=== PATIENT | female | born 2000 | race Caucasian/White ===

== ENCOUNTER 2024-06-15 13:01 | Outpatient (OUT) | payer MEDICAID, SELFPAY ==
--- NOTE | 2024-06-15 13:05 | US_ITS ---
[address] [address] Patient Name: RUPINDER LAY MRN: [id number] date: 2000 Sex: F Assigned Patient Location: [facility] Current Patient Location: Accession/Order Number: [id number] Exam Date: 06/15/2024 13:05 Report Date: 06/16/2024 04:15 At the request of: ZENON GUZMAN Procedure: US OB >= 14 weeks Fetus EXAMINATION: US OB >= 14 weeks Fetus HISTORY: MISSED MENSES COMPARISON: No relevant comparison available. FINDINGS: Heart Rate: 158 bpm Amniotic Fluid Volume: Subjectively normal Number: 1 Position: Variable BIOMETRY: BPD: 3.77 cm; 17 weeks 4 days; 72.60 % HC: 14.34 cm; 17 weeks 4 days; 71 % AC: 13.37 cm; 18 weeks 6 days; 94.90 % FL: 2.57 cm; 17 weeks 6 days; 75.10 % EFW: 228.18 g; 97 % FL/AC: 19.22 FL/BPD: 68.17 HC/AC: 1.07 GESTATIONAL AGE: Age by EDC: 17 weeks 0 days JV by EDC: 11/23/2024 Age by US: 18 weeks 0 days JV by US: 11/16/2024 US/US OB >= 14 weeks Fetus IMPRESSION: 1. Single live intrauterine with growth detailed above. 2. Anatomic evaluation not performed due to early gestational age. Electronically authenticated by: IVY KEARNEY Date: 06/16/2024 04:15
== END 2024-06-15 13:02 | disposition home or self-care (01) ==
LOC: NOMS 13:01
PROVIDERS: Visit Provider Obstetrics & Gynecology
DX: Z34.92 Encounter for supervision of normal pregnancy, unspecified, second trimester (principal); Z3A.17 17 weeks gestation of pregnancy; N92.6 Irregular menstruation, unspecified
CPT/HCPCS: 76815

== ENCOUNTER 2024-06-19 12:22 | Outpatient (OUT) | payer MEDICAID, SELFPAY ==
[2024-06-19 13:03] LABS: Basophils Percent Auto 0.1 % (0.2-2.0); Eosinophils Absolute Auto 0.1 10^3/uL (0.0-0.7); Hematocrit 36.7 % (36.0-48.0); Hemoglobin 12.4 g/dL (12.0-16.0); Immature Granulocytes Abs Auto 0.03 10^3/uL (0.00-0.03); Immature Granulocytes Pct Auto 0.4 % (0.0-0.5); Lymphocytes Absolute Auto 0.9 10^3/uL (1.2-3.8); Lymphocytes Percent Auto 10.9 % (20.5-60.0); Mean Corpuscular HGB Conc 33.8 g/dL (29.9-35.2); Mean Corpuscular Hemoglobin 30.7 pg (26.7-34.0); Mean Corpuscular Volume 90.8 fL (81.0-99.0); Mean Platelet Volume 11.5 fL (9.5-13.5); Monocytes Absolute Auto 0.5 10^3/uL (0.3-0.8); Neutrophils Absolute Auto 6.8 10^3/uL (1.4-6.5); Neutrophils Percent Auto 81.6 % (43.0-75.0); Platelet Count 136 10^3/uL (150-450); Red Blood Count 4.04 10^6/uL (4.20-5.40); Red Cell Distribution Width 12.4 % (11.0-15.0); White Blood Count 8.3 10^3/uL (4.0-11.0)
[2024-06-19 13:17] LABS: Amphetamine Screen Urine NEGATIVE (NEGATIVE); Barbiturates Screen Urine NEGATIVE (NEGATIVE); Benzodiazepines Screen Urine NEGATIVE (NEGATIVE); Buprenorphine Screen Urine NEGATIVE (NEGATIVE); Cannabinoid Screen Urine NEGATIVE (NEGATIVE); Cocaine Screen Urine NEGATIVE (NEGATIVE); Methadone Screen Urine NEGATIVE (NEGATIVE); Methamphetamines Screen Urine NEGATIVE (NEGATIVE); Opiate Screen Urine NEGATIVE (NEGATIVE); Oxycodone Screen Urine NEGATIVE (NEGATIVE); Phencyclidine Screen Urine NEGATIVE (NEGATIVE); Tricyclic Antidepressant Urine NEGATIVE (NEGATIVE)
[2024-06-19 13:32] LABS: Estimated Average Glucose 91 mg/dL; Glycohemoglobin A1C 4.8 % (4.5-6.2)
[2024-06-20 06:10] LABS: HBsAg Screen Negative (Negative); HCV Ab Non Reactive (Non Reactive); HIV Ab/p24 Ag Screen Non Reactive (Non Reactive)
[2024-06-20 12:09] LABS: Rapid Plasma Reagin, Quant Non Reactive titer (NonRea<1:1)
== END 2024-06-19 12:23 | disposition home or self-care (01) ==
LOC: LAB 12:26
PROVIDERS: Visit Provider Obstetrics & Gynecology
DX: Z34.01 Encounter for supervision of normal first pregnancy, first trimester (principal); N92.6 Irregular menstruation, unspecified
CPT/HCPCS: 36415; 80307; 83036; 85025; 86592; 86762; 86803; 86850; 86900; 86901; 87086; 87340; 87389

== ENCOUNTER 2024-07-04 13:51 | Outpatient (OUT) | payer MEDICAID, SELFPAY ==
--- NOTE | 2024-07-04 13:54 | US_ITS ---
[address] [address] Patient Name: RUPINDER LAY MRN: [id number] date: 2000 Sex: F Assigned Patient Location: [facility] Current Patient Location: Accession/Order Number: [id number] Exam Date: 07/04/2024 13:54 Report Date: 07/05/2024 05:17 At the request of: ZENON GUZMAN Procedure: US OB cervical length EXAMINATION: US OB anatomy, US OB cervical length HISTORY: ANATOMY COMPARISON: Ultrasound OB greater than 14 weeks 06/15/2024 TECHNIQUE: Transabdominal sonographic examination was performed for obstetrical and evaluation. FINDINGS: Number: 1 Heart Rate: 157 bpm H.B. /min Amniotic Fluid Volume: Subjectively normal Placental Location: ANTERIOR with lower margin 5.8 cm from os. Cervix Length: 4.80 cm ; closed. ANATOMY: Normal Structures -cerebellum, choroid plexus, cisterna magna, lateral cerebral ventricles, orbits, midline falx, hard palate, four-chamber heart, RVOT, LVOT, stomach, kidneys, bladder, umbilical cord insertion into abdomen, three-vessel cord, cervical spine, thoracic spine, lumbar spine, sacral spine, right upper extremity, left upper extremity, right lower extremity, left lower extremity. SUBOPTIMALLY SEEN: None ABNORMALITIES: None BIOMETRY: BPD: 4.34 cm; 19 weeks 1 day; 3.80 % HC: 17.30 cm; 19 weeks 6 days; 10.20 % AC: 14.98 cm; 20 weeks 2 days; 27.80 % FL: 3.38 cm; 20 weeks 4 days; 37.40 % EFW:307.82 g; 24.30 % FL/AC: 22.56 FL/BPD: 77.88 HC/AC: 1.15 GESTATIONAL AGE: Age by EDC: 20 weeks 5 days Age by current US: 19 weeks 5 days JV by current US: 2024-11-23 JV by EDC: 2024-11-16 US/US OB cervical length IMPRESSION: 1. Single live intrauterine with growth detailed above. Electronically authenticated by: IVY KEARNEY Date: 07/05/2024 05:17
--- NOTE | 2024-07-04 13:54 | US_ITS ---
[address] [address] Patient Name: RUPINDER LAY MRN: [id number] date: 2000 Sex: F Assigned Patient Location: [facility] Current Patient Location: Accession/Order Number: [id number] Exam Date: 07/04/2024 13:54 Report Date: 07/05/2024 05:17 At the request of: ZENON GUZMAN Procedure: US OB anatomy EXAMINATION: US OB anatomy, US OB cervical length HISTORY: ANATOMY COMPARISON: Ultrasound OB greater than 14 weeks 06/15/2024 TECHNIQUE: Transabdominal sonographic examination was performed for obstetrical and evaluation. FINDINGS: Number: 1 Heart Rate: 157 bpm H.B. /min Amniotic Fluid Volume: Subjectively normal Placental Location: ANTERIOR with lower margin 5.8 cm from os. Cervix Length: 4.80 cm ; closed. ANATOMY: Normal Structures -cerebellum, choroid plexus, cisterna magna, lateral cerebral ventricles, orbits, midline falx, hard palate, four-chamber heart, RVOT, LVOT, stomach, kidneys, bladder, umbilical cord insertion into abdomen, three-vessel cord, cervical spine, thoracic spine, lumbar spine, sacral spine, right upper extremity, left upper extremity, right lower extremity, left lower extremity. SUBOPTIMALLY SEEN: None ABNORMALITIES: None BIOMETRY: BPD: 4.34 cm; 19 weeks 1 day; 3.80 % HC: 17.30 cm; 19 weeks 6 days; 10.20 % AC: 14.98 cm; 20 weeks 2 days; 27.80 % FL: 3.38 cm; 20 weeks 4 days; 37.40 % EFW:307.82 g; 24.30 % FL/AC: 22.56 FL/BPD: 77.88 HC/AC: 1.15 GESTATIONAL AGE: Age by EDC: 20 weeks 5 days Age by current US: 19 weeks 5 days JV by current US: 2024-11-23 JV by EDC: 2024-11-16 US/US OB anatomy IMPRESSION: 1. Single live intrauterine with growth detailed above. Electronically authenticated by: IVY KEARNEY Date: 07/05/2024 05:17
--- OUTSIDE RECORDS SUMMARY | 2024-07-04 14:02 | XMS_ITS | CCD ---
Author Organization [facility] Care Team Providers Care Tape Sewing Machine Operator Name Role Phone SHIRA ARMSTRONG Admitting Unavailable SHIRA ARMSTRONG Attending Unavailable JODEE RUBALCAVA Consulting Unavailable MISC, DOCTOR Primary Care Unavailable IEVT STAUFFER Consulting Unavailable Swapna Omalley NP Unavailable ZENON GUZMAN Attending Unavailable Allergies Allergy Classification Reported Allergen(s) Allergy Type Date of Onset Reaction(s) Facility (1 source) Penicillins Drug allergy (disorder) 7 [facility] Repository (5 sources) Penicillins Propensity to adverse reactions 4 [facility] Problems Problem Classification Problem Date Documented Da te Episodic/Chronic External cause codes: Struck by; against (1 source) Striking against or struck by other objects, initial encounter; Translations: [STRIKING AGNST/STRUCK OTH OBJ INIT] Onset: 04-09-2020 Menstrual disorders (1 source) Missed period; Translations: [Irregular menstruation, unspecified] 06-15-2024 Chronic Other connective tissue disease (3 sources) Pain in left hand; Translations: [PAIN IN LEFT HAND] Onset: 04-06-2020 Episodic Other and delivery including normal (5 sources) ; Translations: [Encounter for supervision of normal , unspecified, unspecified trimester] 06-15-2024 Episodic Other screening for suspected conditions (not mental disorders or infectious disease) (2 sources) Patient encounter status; Translations: [Encounter for other specified screening] 06-20-2024 Episodic Residual codes; unclassified (1 source) Gestation period, 18 weeks; Translations: [18 weeks gestation of ] 06-15-2024 Episodic Substance-related disorders (1 source) Nicotine dependence, cigarettes, uncomplicated; Translations: [NICOTINE DEPEND CIGARETTES UNCOMP] Onset: 04-09-2020 Chronic Superficial injury; contusion (1 source) Contusion of left hand, initial encounter; Translations: [CONTUSION LEFT HAND INITIAL ENC] Onset: 04-09-2020 Episodic Results Test Name Value Interpretation Reference Range Facil ity Urinalysis macro (dipstick) panel (U)on 06-20-2024 Bilirubin, UA Negative Negative - 4(70) +++ mg/dL [facility] Blood, UA Negative Negative - 50 Robbi/mcL [facility] Clarity, UA Clear [facility] re Color, UA Yellow [facility] Glucose, UA Negative Negative - 1999(110) ++++ mg/dL [facility] Interpretation and review of laboratory results Abnormal [facility] Ketones, UA Negative Negative - 160(16) ++++ mg/dL [facility] Leukocytes, UA Negative Negative - 500+++ Jose/mcL [facility] Nitrite, UA Negative Negative - Positive [facility] pH, UA 5.5 5 - 9 [facility] e Protein, UA Negative Negative - 1999(20) ++++ mg/dL [facility] Spec Grav, UA 1.03 1 - 1.03 [facility] Urobilinogen, UA 1.0 0.2 - 12 mg/dL [facility] ALL CBC WITH AUTO DIFFon BASOPHILS ABSOLUTE AUTO 0 [facility] Basophils/100 WBC (Bld) 0.1 % Low 0.2 - 2.0 % [facility] Eosinophils/100 WBC (Bld) 1 % 0.9 - 7.0 % [facility] Erythrocyte distribution width (RBC) [Ratio] 12.4 % 11.0 - 15.0 % [facility] Hematocrit (Bld) [Volume fraction] 36.7 % 36.0 - 48.0 % [facility] Hemoglobin (Bld) [Mass/Vol] 12.4 g/dL 12.0 - 16.0 g/dL [facility] IMMATURE GRANULOCYTES ABS AUTO 0.03 [facility] Immature granulocytes/100 WBC (Bld) 0.4 % 0.0 - 0.5 % [facility] Interpretation and review of laboratory results Abnormal [facility] LYMPHOCYTES ABSOLUTE AUTO 0.9 Low [facility] Lymphocytes/100 WBC (Bld) 10.9 % Low 20.5 - 60.0 % [facility] MCH (RBC) [Entitic mass] 30.7 pg 26.7 - 34.0 pg [facility] MCHC (RBC) [Mass/Vol] 33.8 g/dL 29.9 - 35.2 g/dL [facility] MCV (RBC) [Entitic vol] 90.8 fL 81.0 - 99.0 fL [facility] MONOCYTES ABSOLUTE AUTO 0.5 [facility] Monocytes/100 WBC (Bld) 6 % 1.7 - 12.0 % [facility] NEUTROPHILS ABSOLUTE AUTO 6.8 High [facility] Neutrophils/100 WBC (Bld) 81.6 % High 43.0 - 75.0 % [facility] Platelet mean volume (Bld) [Entitic vol] 11.5 fL 9.5 - 13.5 fL [facility] EO # 0.1 [facility] PLT 136 Low [facility] e TB RBC 4.04 Low [facility] e TB WBC 8.3 [facility] e [facility] e HCG ( test) Ql (U)o n 06-15-2024 Interpretation and review of laboratory results Abnormal [facility] Preg Test, Ur Positive [facility] Urinalysis macro (dipstick) panel (U)on 06-15-2024 Bilirubin, UA Negative Negative - 4(70) +++ mg/dL [facility] Blood, UA Negative Negative - 50 Robbi/mcL [facility] Clarity, UA Clear [facility] re Color, UA Yellow [facility] e Glucose, UA Negative Negative - 1999(110) ++++ mg/dL [facility] Interpretation and review of laboratory results Abnormal [facility] Ketones, UA Positive Negative - 160(16) ++++ mg/dL [facility] Comment on above: trace Leukocytes, UA Negative Negative - 500+++ Jose/mcL [facility] Nitrite, UA Negative Negative - Positive [facility] pH, UA 5.5 5 - 9 [facility] e Protein, UA Negative Negative - 1999(20) ++++ mg/dL [facility] Spec Grav, UA 1.030 1 - 1.03 [facility] Urobilinogen, UA 0.2 0.2 - 12 mg/dL [facility] LT MIN 3Von 04-06-20 20 XR HAND LT MIN 3V PROCEDURE: XR HAND LT MIN 3V, 04/06/2020 8:50 PM EDT CLINICAL INDICATIONS: Traumatic contusion, left second metacarpal phalangeal joint pain. COMPARISON: None TECHNIQUE: Left hand, 3 views FINDINGS: The bones are normal in density. Acute fracture or bone destruction are not evident. The joint spaces are preserved. Mild metacarpal level soft tissue swelling is seen without opaque foreign body or gas collection. IMPRESSION: 1. Acute traumatic osseous pathology 2. Metacarpal level soft tissue swelling without opaque foreign body or gas collection Electronically authenticated by: IVET STAUFFER Date: 2020-04-06 21:56 Normal [facility] Vital Signs Date Time Vital Sign Value Performing Clinician Ailyn lity 06-20-2024 11:01-0400 Body weight 76.2 kg Zenon Antony DO Work Phone: [facility] 06-20-2024 11:01-0400 Diastolic blood pressure 70 mm[Hg] Zenon Antony DO Work Phone: [facility] 06-20-2024 11:01-0400 Systolic blood pressure 108 mm[Hg] Zenon Antony DO Work Phone: [facility] 06-15-2024 13:41-0400 Body weight 74.84 kg [facility] 06-15-2024 13:41-0400 Diastolic blood pressure 64 mm[Hg] [facility] 06-15-2024 13:41-0400 Systolic blood pressure 102 mm[Hg] [facility] Nurse [facility] Encounters Encounter Date Encounter Type Care Provider Facility Start: 06-20-2024 End: 06-20-2024 Bamboo flowsheet Zenon Antony DO Work Phone: [facility] Start: 06-20-2024 End: 06-20-2024 Bamboo flowsheet Zenon Antony DO Work Phone: [facility] Start: 06-20-2024 End: 06-20-2024 Office outpatient visit 15 minutes Zenon Antony DO Work Phone: [facility] Comment on above: Second trimester pre gnancy; Screening, , for anatomic survey Start: 06-20-2024 End: 06-20-2024 ambulatory ZENON ANTONY Not Available Start: 06-19-2024 End: 06-19-2024 [facility] Result Encounter Zenon Antony DO Work Phone: [facility] Unsolicited Start: 06-19-2024 End: 06-19-2024 [facility] Result Encounter Zenon Antony DO Work Phone: [facility] Unsolicited Start: 06-15-2024 End: 06-15-2024 Office outpatient visit 5 minutes [facility] Antony Nurse [facility] Comment on above: GA: 18w0d Start: 06-15-2024 End: 06-15-2024 ambulatory ZENON ANTONY Not Available Start: 04-06-2020 End: 04-06-2020 Patient encounter procedure SHIRA ARMSTRONG Facility: Procedures Date Procedure Procedure Detail Performing Clinician Start: 06-20-2024 Urnls dip stick/tabl et rgnt non-auto w/o micrscp Zenon Antony DO Work Phone: Start: 06-19-2024 ALL CBC WITH AUTO DIFF Zenon Antony DO Work Phone: Start: 06-15-2024 End: 06-15-2024 Urnls dip stick/tablet rgnt non-auto w/o micrscp Zenon Antony DO Work Phone: Plan of Treatment Date Care Activity Detail Author Start: 07-18-2024 End: 07-18-2024 Patient encounter procedure 07/18/2024 10:10 AM EST Routine [facility] [address] [place] [address] Antony, Zenon, DO [address] [place] [address] [facility] Start: 07-04-2024 End: 07-04-2024 Professional / ancillary services management 07/04/2024 2:00 PM EDT Ancillary Procedure [facility] [address] [place] [address] [facility] Start: 06-20-2024 End: 06-20-2025 US for US OB ANATOMY SINGLE W US OB CERVICAL LENGTH Imaging Routine Screening, , for anatomic survey Expected: 06/20/2024 (Approximate), Expires: 06/20/2025 [facility] Work Phone: Comment on above: Expected: 06/20/2024 (Approximate), Expires: 06/20/2025 Start: 06-20-2024 End: 06-20-2024 Patient encounter procedure [facility] Comment on above: Arrived Start: 06-15-2024 End: 06-15-2025 ABO/Rh ABO/Rh Lab Routine Missed menses , unspecified gestational age Expected: 06/15/2024 (Approximate), Expires: 06/15/2025 [facility] Comment on above: Expected: 06/15/2024 (Approximate), Expires: 06/15/2025 Start: 06-15-2024 End: 06-15-2025 Alpha fetoprotein, maternal Alpha fetoprotein, maternal Lab Routine Second trimester Expected: 06/15/2024 (Approximate), Expires: 06/15/2025 [facility] Comment on above: Expected: 06/15/2024 (Approximate), Expires: 06/15/2025 Start: 06-15-2024 End: 06-15-2025 Blood type and Indirect antibody screen panel - Blood Type and screen Lab Routine Missed menses , unspecified gestational age Expected: 06/15/2024 (Approximate), Expires: 06/15/2025 [facility] Work Phone: Comment on above: Expected: 06/15/2024 (Approximate), Expires: 06/15/2025 Start: 06-15-2024 End: 06-15-2025 Drugs of abuse panel - Urine by Screen method Rapid drug screen, urine Lab Routine , unspecified gestational age Encounter for supervision of normal first in first trimester Expected: 06/15/2024 (Approximate), Expires: 06/15/2025 [facility] Comment on above: Expected: 06/15/2024 (Approximate), Expires: 06/15/2025 Start: 06-15-2024 End: 06-15-2025 US for US OB > 14 WEEKS Imaging Routine Missed menses Expected: 06/15/2024 (Approximate), Expires: 06/15/2025 [facility] Comment on above: Expected: 06/15/2024 (Approximate), Expires: 06/15/2025 Start: 05-07-2024 Influenza vaccination Influenza Vacc ine (#1) [facility] Bacteria identified in Urine by Culture Urine culture Microbiology Routine Missed menses Ordered: 06/15/2024 [facility] Comment on above: Ordered: 06/15/2024 CBC W Auto Different ial panel - Blood CBC and differential Lab Routine Missed menses , unspecified gestational age Ordered: 06/15/2024 [facility] Comment on above: Ordered: 06/15/2024 Hemoglobin A1c/Hemoglobin.total in Blood Hemoglobin A1c Lab Routine Missed menses , unspecified gestational age Ordered: 06/15/2024 [facility] Comment on above: Ordered: 06/15/2024 Hepatitis B virus surface Ag [Presence] in Serum or Plasma by Immunoassay Hepatitis B surface antigen Lab Routine Missed menses , unspecified gestational age Ordered: 06/15/2024 [facility] Comment on above: Ordered: 06/15/2024 Hepatitis C virus Ab [Presence] in Serum or Plasma by Immunoassay Hepatitis C antibody Lab Routine Missed menses , unspecified gestational age Ordered: 06/15/2024 [facility] Comment on above: Ordered: 06/15/2024 HIV-1/HIV-2 antigen/antibody combination immunoassay HIV-1 and HIV-2 antibodies Lab Routine Missed menses , unspecified gestational age Ordered: 06/15/2024 [facility] Comment on above: Ordered: 06/15/2024 Reagin Ab [Presence] in Serum by RPR RPR Lab Routine Missed menses , unspecified gestational age Ordered: 06/15/2024 [facility] Comment on above: Ordered: 06/15/2024 Rubella antibody, IgG Rubella an tibody, IgG Lab Routine Missed menses , unspecified gestational age Ordered: 06/15/2024 [facility] Comment on above: Ordered: 06/15/2024 Payers Date Payer Category Payer Medicaid [id number] 2022 Medicaid [id number] 1999 Unknown [id number] 1999 Unknown [id number] 1999 Unknown [id number] 1959 Unknown [id number] Social History Date Type Detail Facility Tobacco smoking stat [facility] Tobacco smoking consumption unknown [facility] Start: 02-24-2024 [facility] Start: 1999 Sex assigned at Female [facility] Start: 06-08-2024 Gender identity Identifies as female gender (finding) [facility] Sexual orientation Not on file [facility] History of Present illness Narrative 06-20-2024 Colleen Choi LPN - 06/20/2024 10:30 AM EDT Note Date & Type Note Facility 06-20-2024 History of Presen t illness Narrative Reason for Appointment: Patient ID: Sia Simons is a 24 y.o. female who presents for Routine Visit Patient presents today for Return OB appointment. MEDICATIONS No current outpatient medications ALLERGIES Allergies Allergen Reactions Penicillins PROBLEMS Active Ambulatory Problems Diagnosis Date Noted No Active Ambulatory Problems Resolved Ambulatory Problems Diagnosis Date Noted No Resolved Ambulatory Problems No Additional Past Medical History HISTORY PAST MEDICAL HISTORY SOCIAL HISTORY History reviewed. No pertinent past medical history. Social History Tobacco Use Smoking status: Not on file Smokeless tobacco: Not on file Substance Use Topics Alcohol use: Not on file Drug use: Not on file FAMILY HISTORY No family history on file. SURGICAL HISTORY History reviewed. No pertinent surgical history. REVIEW OF SYSTEMS Review of Systems: Review of Systems Constitutional: Negative. HENT: Negative. Eyes: Negative. Respiratory: Negative. Cardiovascular: Negative. Gastrointestinal: Negative. Genitourinary: Negative. Musculoskeletal: Negative. Skin: Negative. Neurological: Negative. All other systems reviewed and are negative. Hematological: Negative. Endocrine: Negative. Allergic/Immunologic: Negative. OBJECTIVE Objective: Physical Exam Constitutional: Appearance: Normal appearance. She is well-developed and normal weight. HENT: Head: Normocephalic. Cardiovascular: Rate and Rhythm: Normal rate and regular rhythm. Pulses: Normal pulses. Pulmonary: Effort: Pulmonary effort is normal. Breath sounds: Normal breath sounds. Abdominal: General: Bowel sounds are normal. There is no distension. Palpations: Abdomen is soft. Tenderness: There is no abdominal tenderness. There is no guarding or rebound. Musculoskeletal: General: No swelling. Normal range of motion. Right lower leg: No edema. Left lower leg: No edema. Neurological: General: No focal deficit present. Mental Status: She is alert and oriented to person, place, and time. Skin: General: Skin is warm and dry. Psychiatric: Mood and Affect: Mood normal. Behavior: Behavior normal. Thought Content: Thought content normal. Judgment: Judgment normal. Vitals and nursing note reviewed. Exam conducted with a stitchdowns toe former present. Vitals: There is no height or weight on file to calculate BMI. BP: 108/70 Patient's last menstrual period was 02/17/2024. ASSESSMENT & PLAN ICD-10-CM 1. Second trimester Z34.92 Urine dip 2. Screening, , for anatomic survey Z36.89 US OB ANATOMY SINGLE W US OB CERVICAL LENGTH Patient presents today for a routine obstetrics appointment. Patient is currently 18w5d with a Estimated Date of Delivery: 11/16/24. Pt has complaints of nausea- declines medication at this time. Pt to have pap/cultures next visit. PT to return in 4 weeks for scheduled OB appt. Documented by Colleen Choi LPN on behalf of: Jane Urbina PA-C documented in this encounter [facility] History of Present illness Narrative 06-15-2024 Nahed Louie - 06/15/2024 1:30 PM EDT Note Date & Type Note Facility 06-15-2024 History of Presen t illness Narrative Reason for Appointment: Patient ID: Sia Simons is a 24 y.o. female who presents for Initial Visit Patient presents today for a Nurse OB Intake appointment. Patient is 18w0d with a Estimated Date of Delivery: 11/16/24 OB History Para Term AB Living 1 SAB IAB Ectopic Multiple Live Births # Outcome Date GA Lbr Junaid/2nd Weight Sex Type Anes PTL Lv 1 Current Current Medications: currently has no medications in their medication list. Medical History: Active Ambulatory Problems Diagnosis Date Noted No Active Ambulatory Problems Resolved Ambulatory Problems Diagnosis Date Noted No Resolved Ambulatory Problems No Additional Past Medical History No family history on file. Social History Tobacco Use Smoking status: Not on file Smokeless tobacco: Not on file Substance Use Topics Alcohol use: Not on file Drug use: Not on file No past surgical history on file. Allergies Allergen Reactions Penicillins Vitals: There is no height or weight on file to calculate BMI. BP: 102/64 Patient's last menstrual period was 02/17/2024. Assessment/Plan Diagnoses and all orders for this visit: Missed menses - Type and screen; Future - ABO/Rh; Future - CBC and differential - Hemoglobin A1c - RPR - Rubella antibody, IgG - Hepatitis B surface antigen - Hepatitis C antibody - HIV-1 and HIV-2 antibodies - Urine culture - POCT , urine manually resulted - POCT urinalysis dipstick manually resulted - US OB > 14 WEEKS; Future , unspecified gestational age - Type and screen; Future - ABO/Rh; Future - CBC and differential - Hemoglobin A1c - RPR - Rubella antibody, IgG - Hepatitis B surface antigen - Hepatitis C antibody - HIV-1 and HIV-2 antibodies - Rapid drug screen, urine; Future Encounter for supervision of normal first in first trimester - Rapid drug screen, urine; Future 18 weeks gestation of Second trimester - Alpha fetoprotein, maternal; Future Nurse Note: OB Intake: Patient presents today for first OB visit. Patients history has been reviewed in great detail including any potential risks. Patient signed consent forms and patient desires testing in both trimesters. Patient currently has no complaints and has been advised to drink 6-8 glasses of water a day, eat no raw or undercooked meat, and stay away from [facility]. Patient has also been advised to not change litter boxes and eat 6 small meals a day. Patient has been consulted regarding the do's and don'ts of . Patient was given labs and all questions and concerns were answered. Follow Up: Patient is to return in 4 weeks for routine OB appointment. Follow Up: Patient is to have labs drawn at directed and return to office for initial OB appointment with provider. Patient may call office as needed with any concerns or questions. Nurse Visit Completed by: Nahed Louie documented in this encounter [facility] Evaluation note Note Date & Type Note Facility Evaluation note Diagnosis Missed menses , unspecified gestational age Encounter for supervision of normal first in first trimester 18 weeks gestation of Second trimester state, incidental documented in this encounter [facility] Evaluation note Note Date & Type Note Facility Evaluation note Diagnosis Second trimester state, incidental Screening, , for anatomic survey Encounter for anatomic survey documented in this encounter [facility] Summary Purpose Family History No Family History Records FoundNo Family History Records Found Advance Directives No Advanced Directives Records FoundNo Advanced Directives Records Found Additional Source Comments INFORMATION SOURCE (unrecogn ized section and content) DATE CREATED AUTHOR 04/09/2020 [facility] DATE CREATED AUTHOR AUTHOR'S ORGANIZ ATION 06/22/2024 [facility] EPIC Reason for Visit (unrecogniz ed section and content) Reason Comments Initial Visit Reason Comments Routine Visit Care Teams (unrecognized sec tion and content) Tape Sewing Machine Operator Relationship Specialty Start Date End Date Swapna Omalley NP [address] [place] [address] PCP - BERTHA Perez [facility] 12/06/23 Tape Sewing Machine Operator Relationship Specialty Start Date End Date Swapna Omalley NP [address] [place] [address] PCP - [facility] 12/06/23 Tape Sewing Machine Operator Relationship Specialty Start Date End Date Swapna Omalley NP [address] [place] [address] [facility] 12/06/23 FOR RECORDS PERTAINING TO PATIENTS WHO ARE OR HAVE BEEN ENROLLED IN A CHEMICAL DEPENDENCY/SUBSTANCEABUSE PROGRAM, SOME INFORMATION MAY BE OMITTED. This clinical summary was aggregated from multiple sources. Caution should be exercised in using it in the provision of clinical care. This summary normalizes information from multiple sources, and as a consequence, information in this document may materially change the coding, format and clinical context of patient data. In addition, data may be omitted in some cases. CLINICAL DECISIONS SHOULD BE BASED ON THE PRIMARY CLINICAL RECORDS. [employer] [facility]. provides no warranty or guarantee of the accuracy or completeness of information in this document.
== END 2024-07-04 13:52 | disposition home or self-care (01) ==
LOC: NOMS 13:52
PROVIDERS: Visit Provider Obstetrics & Gynecology
DX: Z36.89 Encounter for other specified antenatal screening (principal); Z3A.20 20 weeks gestation of pregnancy
CPT/HCPCS: 76805; 76817

== ENCOUNTER 2024-07-27 19:00 | Outpatient (REF) | payer MEDICAID, SELFPAY ==
--- OUTSIDE RECORDS SUMMARY | 2024-07-27 19:05 | XMS_ITS | CCD ---
Author Organization [facility] Care Team Providers Care Administrative Executive Name Role Phone SHIRA ARMSTRONG Admitting Unavailable SHIRA ARMSTRONG Attending Unavailable JODEE RUBALCAVA Consulting Unavailable MISC, DOCTOR Primary Care Unavailable IVET STAUFFER Consulting Unavailable Swapna Omalley NP Unavailable ZENON GUZMAN Attending Unavailable Allergies Allergy Classification Reported Allergen(s) Allergy Type Date of Onset Reaction(s) Facility (1 source) Penicillins Drug allergy (disorder) 7 [facility] Repository (5 sources) Penicillins Propensity to [...] UA Negative Negative - 4(70) +++ mg/dL [facility] Blood, UA Negative Negative - 50 Robbi/mcL [facility] Clarity, UA Clear [facility] re Color, UA Yellow [facility] Glucose, UA Negative Negative - 1999(110) ++++ mg/dL [facility] Interpretation and review of laboratory results Abnormal [facility] Ketones, UA Negative Negative - 160(16) ++++ mg/dL [facility] Leukocytes, UA Negative Negative - 500+++ Jose/mcL [facility] Nitrite, UA Negative Negative - Positive [facility] pH, UA 5.5 5 - 9 [facility] Protein, UA Negative Negative - 1999(20) ++++ mg/dL [facility] Spec Grav, UA 1.03 1 - 1.03 [facility] Urobilinogen, UA 1.0 0.2 - 12 mg/dL [facility] ALL CBC WITH AUTO DIFFon BASOPHILS ABSOLUTE AUTO 0 [facility] Basophils/100 WBC (Bld) 0.1 % Low 0.2 - 2.0 % [facility] Eosinophils/100 WBC (Bld) 1 % 0.9 - 7.0 % [facility] Erythrocyte distribution width (RBC) [Ratio] 12.4 % 11.0 - 15.0 % [facility] Hematocrit (Bld) [Volume fraction] 36.7 % 36.0 - 48.0 % [facility] [Mass/Vol] 12.4 g/dL 12.0 - 16.0 g/dL [facility] IMMATURE GRANULOCYTES ABS AUTO 0.03 [facility] Immature granulocytes/100 WBC (Bld) 0.4 % 0.0 - 0.5 % [facility] Interpretation and review of laboratory results Abnormal [facility] LYMPHOCYTES ABSOLUTE AUTO 0.9 Low [facility] Lymphocytes/100 WBC (Bld) 10.9 % Low 20.5 - 60.0 % [facility] MCH (RBC) [Entitic mass] 30.7 pg 26.7 - 34.0 pg [facility] MCHC (RBC) [Mass/Vol] 33.8 g/dL 29.9 - 35.2 g/dL [facility] MCV (RBC) [Entitic vol] 90.8 fL 81.0 - 99.0 fL [facility] MONOCYTES ABSOLUTE AUTO 0.5 [facility] Monocytes/100 WBC (Bld) 6 % 1.7 - 12.0 % [facility] NEUTROPHILS ABSOLUTE AUTO 6.8 High [facility] Neutrophils/100 WBC (Bld) 81.6 % High 43.0 - 75.0 % [facility] Platelet mean volume (Bld) [Entitic vol] 11.5 fL 9.5 - 13.5 fL [facility] # 0.1 [facility] TB PLT 136 Low [facility] TB RBC 4.04 Low [facility] TB WBC 8.3 [facility] HCG ( test) Ql (U)o n 06-15-2024 Interpretation and review of laboratory results Abnormal [facility] Preg Test, Ur Positive [facility] Urinalysis macro (dipstick) panel (U)on 06-15-2024 Bilirubin, UA Negative Negative - 4(70) +++ mg/dL [facility] Blood, UA Negative Negative - 50 Robbi/mcL [facility] Clarity, UA Clear [facility] re Color, UA Yellow [facility] Glucose, UA Negative Negative - 1999(110) ++++ mg/dL [facility] Interpretation and review of laboratory results Abnormal [facility] Ketones, UA Positive Negative - 160(16) ++++ mg/dL [facility] Comment on above: trace Leukocytes, UA Negative Negative - 500+++ Jose/mcL [facility] Nitrite, UA Negative Negative - Positive [facility] pH, UA 5.5 5 - 9 [facility] Protein, UA Negative Negative - 1999(20) ++++ mg/dL [facility] Spec Grav, UA 1.030 1 - 1.03 [facility] Urobilinogen, UA 0.2 0.2 - 12 mg/dL [facility] XR HAND LT MIN 3Von [...] by: IVET STAUFFER Date: 2020-04-06 21:56 Normal [facility] Vital Signs Date Time Vital Sign Value Performing Clinician Ailyn lity 06-20-2024 11:01-0400 Body weight 76.2 kg Zenon Antony DO Work Phone: [facility] 06-20-2024 11:01-0400 Diastolic blood pressure 70 mm[Hg] Zenon Antony DO Work Phone: [facility] 06-20-2024 11:01-0400 Systolic blood pressure 108 mm[Hg] Zenon Antony DO Work Phone: [facility] 06-15-2024 13:41-0400 Body weight 74.84 kg [facility] Nurse [facility] 06-15-2024 13:41-0400 Diastolic blood pressure 64 mm[Hg] [facility] Nurse [facility] 06-15-2024 13:41-0400 Systolic blood pressure 102 mm[Hg] [facility] Nurse [facility] Healthcare Encounters Encounter Date Encounter Type Care Provider Facility Start: 06-20-2024 End: 06-20-2024 Bamboo flowsheet Zenon Antony DO Work Phone: [facility] Start: 06-20-2024 End: 06-20-2024 Bamboo flowsheet Zenon Antony DO Work Phone: [facility] Start: 06-20-2024 End: 06-20-2024 Office outpatient visit 15 minutes Zenon Antony DO Work Phone: [facility] Comment on above: Second [...] Routine [facility] [address] [place] [address] Antony, Zenon, DO [address] [place] [address] [facility] Start: 07-04-2024 End: 07-04-2024 Professional / ancillary services management 07/04/2024 2:00 PM EDT Ancillary Procedure [facility] [address] [place] [address] [facility] Start: 06-20-2024 End: 06-20-2025 US for US OB ANATOMY SINGLE W US OB CERVICAL LENGTH Imaging Routine Screening, , for anatomic survey Expected: 06/20/2024 (Approximate), Expires: 06/20/2025 [facility] Healthcare Work Phone: Comment on above: Expected: 06/20/2024 (Approximate), Expires: 06/20/2025 Start: 06-20-2024 End: 06-20-2024 Patient encounter procedure [facility] Comment on above: Arrived Start: 06-15-2024 End: 06-15-2025 ABO/Rh ABO/Rh Lab Routine Missed menses , unspecified gestational age Expected: 06/15/2024 (Approximate), Expires: 06/15/2025 [facility] Healthcare Comment on above: Expected: 06/15/2024 (Approximate), Expires: 06/15/2025 Start: 06-15-2024 End: 06-15-2025 Alpha fetoprotein, maternal Alpha fetoprotein, maternal Lab Routine Second trimester Expected: 06/15/2024 (Approximate), Expires: 06/15/2025 [facility] Healthcare Comment on above: Expected: 06/15/2024 (Approximate), Expires: 06/15/2025 Start: 06-15-2024 End: 06-15-2025 Blood type and Indirect antibody screen panel - Blood Type and screen Lab Routine Missed menses , unspecified gestational age Expected: 06/15/2024 (Approximate), Expires: 06/15/2025 [facility] Healthcare Work Phone: Comment on above: Expected: 06/15/2024 (Approximate), Expires: 06/15/2025 Start: 06-15-2024 End: 06-15-2025 Drugs of abuse panel - Urine by Screen method Rapid drug screen, urine Lab Routine , unspecified gestational age Encounter for supervision of normal first in first trimester Expected: 06/15/2024 (Approximate), Expires: 06/15/2025 [facility] Healthcare Comment on above: Expected: 06/15/2024 (Approximate), Expires: 06/15/2025 Start: 06-15-2024 End: 06-15-2025 US for US OB > 14 WEEKS Imaging Routine Missed menses Expected: 06/15/2024 (Approximate), Expires: 06/15/2025 [facility] Comment on above: Expected: 06/15/2024 (Approximate), Expires: 06/15/2025 Start: 05-07-2024 Influenza vaccination Influenza Vacc ine (#1) [facility] Bacteria identified in Urine by Culture Urine culture Microbiology Routine Missed menses Ordered: 06/15/2024 [facility] Comment on above: Ordered: 06/15/2024 CBC W Auto Different ial panel - Blood CBC and differential Lab Routine Missed menses , unspecified gestational age Ordered: 06/15/2024 [facility] Comment on above: Ordered: 06/15/2024 Hemoglobin A1c/Hemoglobin.total in Blood Hemoglobin A1c Lab Routine Missed menses , unspecified gestational age Ordered: 06/15/2024 [facility] Comment on above: Ordered: 06/15/2024 Hepatitis B virus surface Ag [Presence] in Serum or Plasma by Immunoassay Hepatitis B surface antigen Lab Routine Missed menses , unspecified gestational age Ordered: 06/15/2024 [facility] Comment on above: Ordered: 06/15/2024 Hepatitis C virus Ab [Presence] in Serum or Plasma by Immunoassay Hepatitis C antibody Lab Routine Missed menses , unspecified gestational age Ordered: 06/15/2024 [facility] Comment on above: Ordered: 06/15/2024 HIV-1/HIV-2 antigen/antibody combination immunoassay HIV-1 and HIV-2 antibodies Lab Routine Missed menses , unspecified gestational age Ordered: 06/15/2024 [facility] Comment on above: Ordered: 06/15/2024 Reagin Ab [Presence] in Serum by RPR RPR Lab Routine Missed menses , unspecified gestational age Ordered: 06/15/2024 [facility] Comment on above: Ordered: 06/15/2024 Rubella antibody, IgG Rubella an tibody, IgG Lab Routine Missed menses , unspecified gestational age Ordered: 06/15/2024 [facility] Comment on above: Ordered: 06/15/2024 Payers Date Payer Category Payer Medicaid [id number] 2022 Medicaid [id number] 1999 Unknown [id number] 1999 Unknown [id number] 1999 Unknown [id number] 1959 Unknown [id number] Social History Date Type Detail Facility Tobacco smoking stat [facility] Tobacco smoking consumption unknown [facility] Start: [...] nursing note reviewed. Exam conducted with a college associate present. Vitals: There is no height or [...] or undercooked meat, and stay away from [facility]. Patient has also been advised to not [...] DATE CREATED AUTHOR AUTHOR'S ORGANIZ ATION 06/22/2024 [facility] EPIC Reason for Visit (unrecogniz ed section and content) Reason Comments Initial Visit Reason Comments Routine Visit Care Teams (unrecognized sec tion and content) Administrative Executive Relationship Specialty Start Date End Date Swapna Omalley NP [address] [place] [address] PCP - BERTHA Perez [facility] 12/06/23 Administrative Executive Relationship Specialty Start Date End Date Swapna Omalley NP [address] [place] [address] PCP - [facility] 12/06/23 Administrative Executive Relationship Specialty Start Date End Date Swapna Omalley NP [address] [place] [address] [facility] 12/06/23 FOR RECORDS PERTAINING TO PATIENTS WHO [...] BE BASED ON THE PRIMARY CLINICAL RECORDS. [employer] [facility]. provides no warranty or guarantee of the accuracy or completeness of information in this document.
== END 2024-07-27 19:01 | disposition home or self-care (01) ==
LOC: LAB 19:00
PROVIDERS: Visit Provider Physician Assistant
DX: Z34.92 Encounter for supervision of normal pregnancy, unspecified, second trimester (principal); Z3A.22 22 weeks gestation of pregnancy
CPT/HCPCS: 88175

== ENCOUNTER 2024-09-04 12:00 | Outpatient (OUT) | payer MEDICAID, SELFPAY ==
--- OUTSIDE RECORDS SUMMARY | 2024-09-04 12:17 | XMS_ITS | CCD ---
Author Organization [facility] Care Team Providers Care Heating Equipment Repairer Name Role Phone SHIRA ARMSTRONG Admitting Unavailable SHIRA ARMSTRONG Attending Unavailable JODEE RUBALCAVA Consulting Unavailable MIS, DOCTOR Primary Care Unavailable IVET STAUFFER Consulting Unavailable Sahhram SUPERVISOR [employer], Swapna Bowser Unavailable ZENON HARDY Attending Unavailable JANE STEWART Attending Unavailable ZENON HARDY Attending Unavailable DAVID SOLO Admitting Unavailable DAVID SOLO Attending Unavailable SERVICES, ON LICENSE OF [facility] Primary Care Unava ilable Allergies Allergy Classification Reported Allergen(s) Allergy Type Date of Onset Reaction(s) Facility (2 sources) Penicillins; Translations: [PENICILLINS] Drug allergy (disorder) 7 [facility] Repository (13 sources) Penicillins Propensity to adverse reactions 7 Hives [facility] Problems Problem Classification Problem Date [...] 04-06-2020 Episodic Other and delivery including normal (9 sources) ; Translations: [Encounter for supervision of normal , unspecified, unspecified trimester] 06-15-2024 Episodic Other screening for suspected conditions (not mental disorders or infectious disease) (4 sources) Patient encounter status; Translations: [Encounter for other specified screening] 06-20-2024 Episodic Residual codes; unclassified (1 source) Gestation period, 18 weeks; Translations: [18 weeks gestation of ] 06-15-2024 Episodic Residual codes; unclassified (2 sources) Gestation period, 22 weeks; Translations: [22 weeks gestation of ] 07-27-2024 Episodic Residual codes; unclassified (2 sources) Gestation period, 28 weeks; Translations: [28 weeks gestation of ] 08-28-2024 Episodic Spondylosis; intervertebral disc disorders; other back problems (2 sources) Sciatica, left side; Translations: [Sciatica] Onset: 09-03-2024 Episodic Substance-related disorders (1 source) Nicotine dependence, cigarettes, uncomplicated; Translations: [NICOTINE DEPEND CIGARETTES UNCOMP] Onset: 04-09-2020 Chronic Superficial injury; contusion (1 source) Contusion of left hand, initial encounter; Translations: [CONTUSION LEFT HAND INITIAL ENC] Onset: 04-09-2020 Episodic Results Test Name Value Interpretation Reference Range Facility DRUG SCREEN, URINEon 024 AMPHETAMINE/METHAMP Negative Normal NEG [facility] Comment on above: Result Comment: AMPH /METH screening cut off = 1000 ng/mL Performed By: #### D MONTENEGRO #### [facility] ([id number]) [address] [place] [address] BARBITURATES Negative Normal NEG [facility] Comment on above: Result Comment: Mackenzie iturates screening cut off value = 200 ng/mL Performed By: #### D MONTENEGRO #### [facility] ([id number]) [address] [place] [address]4487 BENZODIAZEPINES Negative Normal NEG [facility] Comment on above: Result Comment: Horacio odiazepines screening cut off value = 200 ng/mL Performed By: #### D MONTENEGRO #### [facility] ([id number]) [address] [place] [address]107 CANNABINOIDS Negative Normal NEG [facility] Comment on above: Result Comment: Ryan abinoids/THC screening cut off value = 50 ng/mL Performed By: #### D MONTENEGRO #### [facility] ([id number]) [address] [place] [address] 03583 COCAINE METABOLITE Negative Normal NEG [facility] Comment on above: Result Comment: Coca ine screening cut off value = 300 ng/mL Performed By: #### D MONTENEGRO #### [facility] ([id number]) [address] [place] [address]65[address] ECSTASY Negative Normal [facility] Comment on above: Result Comment: Ecst asy screening cut off value = 500 ng/mL This report is intended for use in clinical monitoring or management of patients. Performed By: #### D MONTENEGRO #### [facility] ([id number]) [address] [place] [address] METHADONE Negative Normal [facility] Comment on above: Result Comment: Meth adone screening cut off value = 300 ng/mL. Performed By: #### D MONTENEGRO #### [facility] ([id number]) [address] [place] [address] 11470 OPIATES Negative Normal [facility] Comment on above: Result Comment: Opia taya screening cut off value = 300 ng/mL NOTE: This test is used for the detection of codeine, hydrocodone (>1000 ng/mL), morphine and hydromorphone (>900 ng/mL) in urine. Performed By: #### D MONTENEGRO #### [facility] ([id number]) [address] [place] [address]9065 OXYCODONE Negative Normal [facility] Comment on above: Result Comment: Oxyc odone screening cut off value = 300 ng/mL NOTE: This test is used for the detection of oxycodone and oxymorphone in urine. Performed By: #### D MONTENEGRO #### [facility] ([id number]) [address] [place] [address] 11753 PHENCYCLIDINE Negative Normal [facility] Comment on above: Result Comment: Phen cyclidine screening cut off value = 25 ng/mL Performed By: #### D MONTENEGRO #### [facility] ([id number]) [address] [place] [address], [place] [address] URINALYSISon 09-03-2024 Bilirubin Ql (U) Negative Normal NEG [facility] Comment on above: Performed By: #### U A #### [facility] ([id number]) [address] [place] [address], [place] [address] BLOOD/HGB Trace Abnormal NEG [facility] Comment on above: Performed By: #### U A #### [facility] ([id number]) [address] [place] [address], [place] [address] Color (U) YELLOW Normal YELLOW [facility] Comment on above: Performed By: #### U A #### [facility] ([id number]) [address] [place] [address] [place] [address] Glucose Ql (U) Negative Normal NEG [facility] Comment on above: Performed By: #### U A #### [facility] ([id number]) [address] [place] [address], [place] [address] Ketones Ql (U) Negative Normal NEG [facility] Comment on above: Performed By: #### U A #### [facility] ([id number]) [address] [place] [address] [place] [address] Leukocyte esterase Test strip Ql (U) Negative Normal NEG [facility] Comment on above: Performed By: #### U A #### [facility] ([id number]) [address] [place] [address], [place] [address] Nitrite Ql (U) Negative Normal NEG [facility] Comment on above: Performed By: #### U A #### [facility] ([id number]) [address] [place] [address], [place] [address] pH (U) 6.0 [pH] Normal 5.0-8.5 [facility] Comment on above: Performed By: #### U A #### [facility] ([id number]) [address] [place] [address] Protein Ql (U) Trace Abnormal NEG [facility] Comment on above: Performed By: #### U A #### [facility] ([id number]) [address] [place] [address] 48867 R.B.CELLS 1 /hpf Normal 0-5 [facility] Comment on above: Performed By: #### U A #### [facility] ([id number]) [address] [place] [address] 16645 Specific gravity (U) [Rel density] >1.030 Normal 1.003-1.035 [facility] Comment on above: Performed By: #### U A #### [facility] ([id number]) [address] [place] [address] SQUAMOUS EPITHELIUM 9 /hpf High 0-5 [facility] Comment on above: Performed By: #### U A #### [facility] ([id number]) [address] [place] [address]45[address] TURBIDITY CLEAR Normal CLEAR [facility] Comment on above: Performed By: #### U A #### [facility] ([id number]) [address] [place] [address] 01494 Urobilinogen Qn (U) 0.2 {Nathanael'U}/dL Normal <1.1 [facility] Comment on above: Performed By: #### U A #### [facility] ([id number]) [address] [place] [address] 02937 W.B.CELLS 0 /hpf Normal 0-5 [facility] Comment on above: Performed By: #### U A #### [facility] ([id number]) [address] [place] [address] Urinalysis macro (dipstick) panel (U)on 08-28-2024 Bilirubin, UA Negative Negative - 4(70) +++ mg/dL [facility] Blood, UA Negative Negative - 50 Robbi/mcL [facility] Clarity, UA Clear [facility] Simmrca re Color, UA Yellow [facility] Simmrcar e Glucose, UA Negative Negative - 1999(110) ++++ mg/dL [facility] Interpretation and review of laboratory results Abnormal [facility] Ketones, UA Positive Negative - 160(16) ++++ mg/dL [facility] Comment on above: 15mg Leukocytes, UA Negative Negative - 500+++ Jose/mcL [facility] Nitrite, UA Negative Negative - Positive [facility] pH, UA 6 5 - 9 [facility] e Protein, UA Negative Negative - 1999(20) ++++ mg/dL [facility] Spec Grav, UA 1.03 1 - 1.[address] [facility] Urobilinogen, UA 0.2 0.2 - 12 mg/dL [facility] IGP,APTIMA HPV,AGE GDLNon AGE GDLN ACOG TESTING Note . [facility] Comment on above: TESTS RESULT FLAG UN ITS REF RANGE LAB Clinician Provided Cytology Information Source.............Cervix No. of containers..01 ThinPrep Vial Age Algo ACOG Taya... FLAG LEGEND: L-Low Normal,H-High Normal,LL-Alert Low,HH-Alert High <-Panic Low,>-Panic High,A-Abnormal,AA-Critical Abnormal Performed at: 01 =G [facility] [place] [address] [place] [address] Rowena Portillo MD, IGP, RFX APTIMA HPV ASCU Note . [facility] Comment on above: TESTS RESULT FLAG U NITS REF RANGE LAB DIAGNOSIS: 02 NEGATIVE FOR INTRAEPITHELIAL LESION OR MALIGNANCY. Specimen adequacy: 02 Satisfactory for evaluation. No endocervical component is identified. Performed by: 02 Yane Stern Water Use Inspector (ASC) . 02 Note: Note 02 The Pap smear is a screening test designed to aid in the detection of premalignant and malignant conditions of the uterine cervix. It is not a diagnostic procedure and should not be used as the sole means of detecting cervical cancer. Both false-positive and false-negative reports do occur. Test Methodology: Note 02 This liquid based ThinPrep(R) pap test was screened with the use of an image guided system. . 02 The HPV DNA reflex criteria were not met with this specimen result therefore, no HPV testing was performed. FLAG LEGEND: L-Low Normal,H-High Normal,LL-Alert Low,HH-Alert High <-Panic Low,>-Panic High,A-Abnormal,AA-Critical Abnormal Performed at: 02 WB [facility] [place] [address] [place] [address] Rowena Portillo MD, Performed at: = - [facility] [id number] Litigation Coordinator: Rowena Portillo MD, Phone: [phone] Performed at: - [facility] [id number] Litigation Coordinator: Rowena Poritllo MD, Phone: [phone] SPATULA-ALONE CERVIX CLINISYNC [facility] e RECURRENT VAGINITIS (HTRX)on 07-29-2024 ATOPOBIUM VAGINAE 0 [facility] ATOPOBIUM VAGINAE Not detected [facility] BVAB 2,3 (BACTERIAL VAGINOSIS ASSOCIATED BACTERIA 2, 3); MOBILUNCUS SPP 0 [facility] BVAB 2,3 (BACTERIAL VAGINOSIS ASSOCIATED BACTERIA 2, 3); MOBILUNCUS SPP Not detected [facility] IWONA ALBICANS, PARAPSILOSIS, TROPICALIS 0 [facility] IWONA ALBICANS, PARAPSILOSIS, TROPICALIS Not detected [facility] IWONA GLABRATA 0 [facility] Hea lthcare IWONA GLABRATA Not detected [facility] e[facility] IWONA KRUSEI 0 [facility] IWONA KRUSEI Not [facility] CHLAMYDIA TRACHOMATIS 0 [facility] CHLAMYDIA TRACHOMATIS Not detected [facility] GARDNERELLA VAGINALIS 0 [facility] GARDNERELLA VAGINALIS Not detected [facility] MEGASPHAERA (TYPES 1, 2) 0 [facility] MEGASPHAERA (TYPES 1, 2) Not detected [facility] MYCOPLASMA GENITALIUM 0 [facility] MYCOPLASMA GENITALIUM Not detected [facility] NEISSERIA GONORRHOEAE 0 [facility] NEISSERIA GONORRHOEAE Not detected [facility] TRICHOMONAS VAGINALIS 0 [facility] TRICHOMONAS VAGINALIS Not detected [facility] Urinalysis macro (dipstick) panel (U)on 06-20-2024 Bilirubin, UA Negative Negative - 4(70) +++ mg/dL [facility] Blood, UA Negative Negative - 50 Robbi/mcL [facility] Clarity, UA Clear [facility] re Color, UA Yellow [facility] e Glucose, UA Negative Negative - 2000(110) ++++ mg/dL [facility] Interpretation and review of laboratory results Abnormal [facility] Ketones, UA Negative Negative - 160(16) ++++ mg/dL [facility] Leukocytes, UA Negative Negative - 500+++ Jose/mcL [facility] Nitrite, UA Negative Negative - Positive [facility] pH, UA 5.5 5 - 9 [facility] Protein, UA Negative Negative - 2000(20) ++++ mg/dL [facility] Spec Grav, UA 1.03 1 - 1.[address] [facility] Urobilinogen, UA 1.0 0.2 - 12 mg/dL [facility] Healthcar e ALL CBC WITH AUTO DIFFon BASOPHILS ABSOLUTE AUTO 0 [facility] Basophils/100 WBC (Bld) 0.1 % Low 0.2 - 2.0 % [facility] Eosinophils/100 WBC (Bld) 1 % 0.9 - 7.0 % [facility] Erythrocyte distribution width (RBC) [Ratio] 12.4 % 11.0 - 15.0 % [facility] Hematocrit (Bld) [Volume fraction] 36.7 % 36.0 - 48.0 % [facility] Hemoglobin (Bld) [Mass/Vol] 12.4 g/dL 12.0 - 16.0 g/dL [facility] IMMATURE GRANULOCYTES ABS AUTO 0.03 [facility] Immature granulocytes/100 WBC (Bld) 0.4 % 0.0 - 0.5 % [facility] Interpretation and review of laboratory results Abnormal [facility] LYMPHOCYTES ABSOLUTE AUTO 0.9 Low [facility] Lymphocytes/100 WBC (Bld) 10.9 % Low 20.5 - 60.0 % [facility] MCH (RBC) [Entitic mass] 30.7 pg 26.7 - 34.0 pg [facility] MCHC (RBC) [Mass/Vol] 33.8 g/dL 29.9 - 35.2 g/dL [facility] MCV (RBC) [Entitic vol] 90.8 fL 81.0 - 99.0 fL [facility] MONOCYTES ABSOLUTE AUTO 0.5 [facility] Monocytes/100 WBC (Bld) 6 % 1.7 - 12.0 % [facility] NEUTROPHILS ABSOLUTE AUTO 6.8 High [facility] Neutrophils/100 WBC (Bld) 81.6 % High 43.0 - 75.0 % [facility] Platelet mean volume (Bld) [Entitic vol] 11.5 fL 9.5 - 13.5 fL [facility] are TBH EO # 0.1 [facility] Healthcar e TB PLT 136 Low [facility] Healthcar e TBH RBC 4.04 Low [facility] Health[facility] e TBH WBC 8.3 [facility] Healthcar e [facility] e HCG ( test) Ql (U)o n 06-15-2024 Interpretation and review of laboratory results Abnormal [facility] Preg Test, Ur Positive [facility] care [facility] Healthcar e Urinalysis macro (dipstick) panel (U)on 06-15-2024 Bilirubin, UA Negative Negative - 4(70) +++ mg/dL [facility] Blood, UA Negative Negative - 50 Robbi/mcL [facility] Clarity, UA Clear [facility] re Color, UA Yellow [facility] e Glucose, UA Negative Negative - 1999(110) ++++ mg/dL [facility] Interpretation and review of laboratory results Abnormal [facility] Ketones, UA Positive Negative - 160(16) ++++ mg/dL [facility] Comment on above: trace Leukocytes, UA Negative Negative - 500+++ Jose/mcL [facility] Nitrite, UA Negative Negative - Positive [facility] pH, UA 5.5 5 - 9 [facility] e Protein, UA Negative Negative - 1999(20) ++++ mg/dL [facility] Spec Grav, UA 1.030 1 - 1.[address] [facility] Urobilinogen, UA 0.2 0.2 - 12 mg/dL [facility] Healthcar e XR HAND LT MIN 3Von 04-06-20 20 XR HAND LT MIN 3V PROCEDURE: XR HAND L T MIN 3V, 04/06/2020 8:50 PM EDT CLINICAL [...] by: IVET STAUFFER Date: 2020-04-06 21:56 Normal [facility] Vital Signs Date Time Vital Sign Value Performing Clinician Faci lity 08-28-2024 15:12-0500 Body weight 80.92 kg Zenon Antony DO Work Phone: [facility] 08-28-2024 15:12-0500 Diastolic blood pressure 54 mm[Hg] Zenon Antony DO Work Phone: [facility] 08-28-2024 15:12-0500 Systolic blood pressure 108 mm[Hg] Zenon Antony DO Work Phone: [facility] 07-27-2024 15:36-0500 Body weight 77.11 kg Jane LR Work Phone: [facility] 07-27-2024 15:36-0500 Diastolic blood pressure 64 mm[Hg] Jane LR Work Phone: [facility] 07-27-2024 15:36-0500 Systolic blood pressure 106 mm[Hg] Jane LR Work Phone: [facility] 06-20-2024 11:01-0400 Body weight 76.2 kg Zenon Antony DO Work Phone: [facility] 06-20-2024 11:01-0400 Diastolic blood pressure 70 mm[Hg] Zenon Antony DO Work Phone: [facility] 06-20-2024 11:01-0400 Systolic blood pressure 108 mm[Hg] Zenon Antony DO Work Phone: [facility] 06-15-2024 13:41-0400 Body weight 74.84 kg [facility] 06-15-2024 13:41-0400 Diastolic blood pressure 64 mm[Hg] [facility] 06-15-2024 13:41-0400 Systolic blood pressure 102 mm[Hg] [facility] Nurse [facility] Healthcare Encounters Encounter Date Encounter Type Care Provider Facility Start: 09-03-2024 End: 09-03-2024 ambulatory [facility] Start: 08-28-2024 End: 08-28-2024 Office outpatient visit 15 minutes Zenon Antony DO Work Phone: [facility] Comment on above: Diabetes mellitus sc reening; 28 weeks gestation of ; Third trimester Start: 08-28-2024 End: 08-28-2024 ambulatory ZENON ANTNOY Not Available Start: 08-28-2024 End: 08-28-2024 Bamboo flowsheet Zenon Antony DO Work Phone: [facility] Start: 08-28-2024 End: 08-28-2024 Bamboo flowsheet Zenon Antony DO Work Phone: [facility] Start: 07-27-2024 End: 07-27-2024 Periodic preventive med est patient 18-39 yrs Jane LR Work Phone: [facility] Comment on above: Second trimester pre gnancy; 22 weeks gestation of Start: 07-27-2024 End: 07-27-2024 ambulatory JANE STEWART Not Available Start: 07-27-2024 End: 07-27-2024 Bamboo flowsheet Jane LR Work Phone: [facility] Start: 07-27-2024 End: 08-07-2024 Bamboo flowsheet Jane LR Work Phone: [facility] Start: 07-27-2024 End: 08-07-2024 Clinisync Result Encounter Jane LR Work Phone: [facility] External Department Unsolicited Start: 07-27-2024 End: 07-29-2024 External Result Encounter Jane LR Work Phone: [facility] External Department Unsolicited Start: 06-20-2024 End: 06-20-2024 Bamboo flowsheet Zenon Antony DO Work Phone: [facility] Start: 06-20-2024 End: 06-20-2024 Bamboo flowsheet Zenon Antony DO Work Phone: [facility] Start: 06-20-2024 End: 06-20-2024 Office outpatient visit 15 minutes Zenon Antony DO Work Phone: [facility] Comment on above: Second trimester pre [...] 04-06-2020 End: 04-06-2020 Patient encounter procedure SHIRA Lara ARMSTRONG Facility: Procedures Date Procedure Procedure Detail Performing Clinician Start: 08-28-2024 Urnls dip stick/tabl et rgnt non-auto w/o micrscp Zenon Antony DO Work Phone: Start: 07-27-2024 RECURRENT VAGINITIS (HTRX) Jane LR Work Phone: Start: 07-27-2024 IGP,APTIMA HPV,AGE GDLN Jane LR Work Phone: Start: 06-20-2024 Urnls dip stick/tabl et rgnt non-auto w/o micrscp Zenon Antony DO Work Phone: Start: 06-19-2024 ALL CBC WITH AUTO DIFF Zenon Antony DO Work Phone: Start: 06-15-2024 End: 06-15-2024 Urnls dip stick/tablet rgnt non-auto w/o micrscp Zenon Antony DO Work Phone: Plan of Treatment Date Care Activity Detail Author Start: 09-18-2024 End: 09-18-2024 Patient encounter procedure 09/18/2024 3:00 PM EST Routine [facility] [address] [place] [id number] Jane Stewart PA [address] [place] [address] [place] [address] [facility] Start: 08-28-2024 End: 08-28-2024 Patient encounter procedure [facility] Comment on above: Arrived Start: 08-28-2024 End: 08-28-2025 CBC panel - Blood by Automated count CBC Lab Routine Diabetes mellitus screening 28 weeks gestation of Third trimester Expected: 08/28/2024 (Approximate), Expires: 08/28/2025 [facility] Work Phone: Comment on above: Expected: 08/28/2024 (Approximate), Expires: 08/28/2025 Start: 08-28-2024 End: 08-28-2025 Measurement of glucose 1 hour after glucose challenge for glucose tolerance test Glucose tolerance, 1 hour Lab Routine Diabetes mellitus screening 28 weeks gestation of Third trimester Expected: 08/28/2024 (Approximate), Expires: 08/28/2025 [facility] Comment on above: Expected: 08/28/2024 (Approximate), Expires: 08/28/2025 Start: 07-27-2024 End: 07-27-2024 Patient encounter procedure 07/27/2024 3:20 PM EST Routine [facility] [address] [place] [phone] Jane Stewart, PA [address] [place] [address] Arrived [facility] Comment on above: Arrived Start: 07-18-2024 End: 07-18-2024 Patient encounter procedure 07/18/2024 10:10 AM EST Routine [facility] [address] [place] [address] Zenon Hardy DO [address] [place] [address] [facility] Start: 07-04-2024 End: 07-04-2024 Professional / ancillary services management 07/04/2024 2:00 PM EDT Ancillary Procedure [facility] [address] [place] [place] [id number] [facility] Start: 06-20-2024 End: 06-20-2025 US for US OB ANATOMY SINGLE W US OB CERVICAL LENGTH Imaging Routine Screening, , for anatomic survey Expected: 06/20/2024 (Approximate), Expires: 06/20/2025 [facility] Healthcare Work Phone: Comment on above: Expected: 06/20/2024 (Approximate), Expires: 06/20/2025 Start: 06-20-2024 End: 06-20-2024 Patient encounter procedure [facility] OB Comment on above: Arrived Start: 06-15-2024 End: 06-15-2025 ABO/Rh ABO/Rh Lab Routine Missed menses , unspecified gestational age Expected: 06/15/2024 (Approximate), Expires: 06/15/2025 [facility] Comment on above: Expected: 06/15/2024 (Approximate), Expires: 06/15/2025 Start: 06-15-2024 End: 06-15-2025 Alpha fetoprotein, maternal Alpha fetoprotein, maternal Lab Routine Second trimester Expected: 06/15/2024 (Approximate), Expires: 06/15/2025 [facility] Healthcare Comment on above: Expected: 06/15/2024 (Approximate), Expires: 06/15/2025 Start: 06-15-2024 End: 06-15-2025 Blood type and Indirect antibody screen panel - Blood Type and screen Lab Routine Missed menses , unspecified gestational age Expected: 06/15/2024 (Approximate), Expires: 06/15/2025 [facility] Healthcare Work Phone: Comment on above: Expected: 06/15/2024 (Approximate), Expires: 06/15/2025 Start: 06-15-2024 End: 06-15-2025 Drugs of abuse panel - Urine by Screen method Rapid drug screen, urine Lab Routine , unspecified gestational age Encounter for supervision of normal first in first trimester Expected: 06/15/2024 (Approximate), Expires: 06/15/2025 [facility] Comment on above: Expected: 06/15/2024 (Approximate), Expires: 06/15/2025 Start: 06-15-2024 End: 06-15-2025 US for US OB > 14 WEEKS Imaging Routine Missed menses Expected: 06/15/2024 (Approximate), Expires: 06/15/2025 [facility] Comment on above: Expected: 06/15/2024 (Approximate), Expires: 06/15/2025 Start: 05-07-2024 Influenza vaccination Influenza Vacc ine (#1) [facility] Bacteria identified in Urine by Culture Urine culture Microbiology Routine Missed menses Ordered: 06/15/2024 [facility] Comment on above: Ordered: 06/15/2024 CBC W Auto Different ial panel - Blood CBC and differential Lab Routine Missed menses , unspecified gestational age Ordered: 06/15/2024 [facility] Comment on above: Ordered: 06/15/2024 CHLAMYDIA TRACHOMATI S (GENITO/STI) CHLAMYDIA TRACHOMATIS (GENITO/STI) Lab Routine Second trimester 22 weeks gestation of Ordered: 07/27/2024 [facility] Comment on above: Ordered: 07/27/2024 Cytology Cervical or vaginal smear or scraping study Pap Smear Pathology and Cytology Routine Second trimester 22 weeks gestation of Ordered: 07/27/2024 [facility] Work Phone: Comment on above: Ordered: 07/27/2024 Hemoglobin A1c/Hemoglobin.total in Blood Hemoglobin A1c Lab Routine Missed menses , unspecified gestational age Ordered: 06/15/2024 [facility] Comment on above: Ordered: 06/15/2024 Hepatitis B virus surface Ag [Presence] in Serum or Plasma by Immunoassay Hepatitis B surface antigen Lab Routine Missed menses , unspecified gestational age Ordered: 06/15/2024 [facility] Comment on above: Ordered: 06/15/2024 Hepatitis C virus Ab [Presence] in Serum or Plasma by Immunoassay Hepatitis C antibody Lab Routine Missed menses , unspecified gestational age Ordered: 06/15/2024 [facility] Comment on above: Ordered: 06/15/2024 HIV-1/HIV-2 antigen/antibody combination immunoassay HIV-1 and HIV-2 antibodies Lab Routine Missed menses , unspecified gestational age Ordered: 06/15/2024 [facility] Comment on above: Ordered: 06/15/2024 Neisseria gonorrhoea e DNA [Presence] in Unspecified specimen by SEAN with probe detection Neisseria gonorrhea DNA probe, direct Lab Routine Second trimester 22 weeks gestation of Ordered: 07/27/2024 [facility] Comment on above: Ordered: 07/27/2024 Reagin Ab [Presence] in Serum by RPR RPR Lab Routine Missed menses , unspecified gestational age Ordered: 06/15/2024 [facility] Comment on above: Ordered: 06/15/2024 Rubella antibody, IgG Rubella an tibody, IgG Lab Routine Missed menses , unspecified gestational age Ordered: 06/15/2024 [facility] Comment on above: Ordered: 06/15/2024 SURESWAB(R) ADVANCED VAGINITIS PLUS, TMA SURESWAB(R) ADVANCED VAGINITIS PLUS, TMA Pathology and Cytology Routine Second trimester 22 weeks gestation of Ordered: 07/27/2024 [facility] Comment on above: Ordered: 07/27/2024 Payers Date Payer Category Payer Medicaid [id number] 2022 Medicaid [id number] 1999 Unknown [id number] 2.16.84 [id number] 1999 Unknown [id number] 2.16.84 [id number] 1999 Unknown [id number] 2.16.84 [id number] 1999 Unknown [id number] 2.16.84 [id number] 1999 Unknown [id number] 2.16.84 [id number] 1959 Unknown [id number] Social History Date Type Detail Facility Tobacco smoking stat [facility] Tobacco smoking consumption unknown [facility] Start: 02-24-2024 [facility] Start: [facility] Sex assigned at Female [facility] Start: 06-08-2024 Gender identity Identifies as female gender (finding) [facility] Sexual orientation Not on file [facility] History of Present illness Narrative 08-28-2024 Consuelo Hernandez, RN CLINICAL QUALITY - 08/28/2024 2:50 PM EST Note Date & Type Note Facility 08-28-2024 History of Presen t illness Narrative Reason for Appointment: Patient ID: Sia Simons is a 24 y.o. female who presents for No chief complaint on file. Patient presents today for Return OB appointment. MEDICATIONS No current outpatient medications ALLERGIES Allergies Allergen Reactions Penicillins Hives Allergic reaction at age 4-5 years old; Tolerated Keflex in 2018 PROBLEMS Active Ambulatory Problems Diagnosis Date Noted No Active Ambulatory Problems Resolved Ambulatory Problems Diagnosis Date Noted No Resolved Ambulatory Problems No Additional Past Medical History HISTORY PAST MEDICAL HISTORY SOCIAL HISTORY No past medical history on file. Social History Tobacco Use Smoking status: Not on file Smokeless tobacco: Not on file Substance Use Topics Alcohol use: Not on file Drug use: Not on file FAMILY HISTORY No family history on file. SURGICAL HISTORY No past surgical history on file. REVIEW OF SYSTEMS Review of Systems: Review of Systems All other systems reviewed and are negative. OBJECTIVE Objective: Physical Exam Constitutional: Appearance: Normal appearance. She is well-developed. Cardiovascular: Rate and Rhythm: Normal rate and regular rhythm. Pulmonary: Effort: Pulmonary effort is normal. Breath sounds: Normal breath sounds. Abdominal: General: Bowel sounds are normal. There is no distension. Palpations: Abdomen is soft. Tenderness: There is no abdominal tenderness. There is no guarding or rebound. Musculoskeletal: General: No swelling. Normal range of motion. Right lower leg: No edema. Left lower leg: No edema. Neurological: Mental Status: She is alert and oriented to person, place, and time. Skin: General: Skin is warm and dry. Psychiatric: Mood and Affect: Mood normal. Behavior: Behavior normal. Vitals and nursing note reviewed. Exam conducted with a instructor dramatic arts present. Vitals: There is no height or weight on file to calculate BMI. BP: Patient's last menstrual period was 02/17/2024. ASSESSMENT & PLAN Patient presents today for a routine obstetrics appointment. Patient is currently 28w4d with a Estimated Date of Delivery: 11/16/24. Patient given order for 1hr gtt and CBC. Patient to RTC in 2-3 weeks. Documented by Consuelo Hernandez LPN on behalf of: Zenon Hardy DO documented in this encounter [facility] History of Present illness Narrative 07-27-2024 ADELINE Ward - 07/27/2024 3:20 PM Chilo Hernandez LPN - 07/27/2024 3:20 PM EST Note Date & Type Note Facility 07-27-2024 History of Presen t illness Narrative Reason for Appointment: Patient ID: Sia Simons is a 24 y.o. female who presents for Routine Visit Patient presents today for Annual Exam. and Return OB appointment. MEDICATIONS No current outpatient medications ALLERGIES Allergies Allergen Reactions Penicillins Hives Allergic reaction at age 4-5 years old; Tolerated Keflex in 2018 PROBLEMS Active Ambulatory Problems Diagnosis Date Noted [...] Exam Constitutional: Appearance: Normal appearance. She is normal weight. HENT: Head: Normocephalic. Cardiovascular: Rate and Rhythm: Normal rate. Pulses: Normal pulses. Pulmonary: Effort: Pulmonary effort is normal. Breath sounds: Normal breath sounds. Abdominal: Palpations: Abdomen is soft. Musculoskeletal: General: Normal range of motion. Neurological: General: No focal deficit present. Mental Status: She is alert and oriented to person, place, and time. Psychiatric: Mood and Affect: Mood normal. Behavior: Behavior normal. Thought Content: Thought content normal. Judgment: Judgment normal. Vitals and nursing note reviewed. Vitals: There is no height or weight on file to calculate BMI. BP: 106/64 Patient's last menstrual period was 02/17/2024. ASSESSMENT & PLAN ICD-10-CM 1. Second trimester Z34.92 2. 22 weeks gestation of Z3A.22 Return OB/Annual Exam: Patient presents today for an annual exam/routine obstetrics appointment. Patient is currently 24w0d . Patient is doing well and states she has no complaints. Pap/cultures was obtained without difficulty and patient was given [facility] order to have obtained. Orders Placed This Encounter Procedures CHLAMYDIA TRACHOMATIS (GENITO/STI) Neisseria gonorrhea DNA probe, direct Follow Up: Patient is to return to our office in 4 weeks for routine OB appointment Documented by ADELINE Ward on behalf of: ADELINE Ward Reason for Appointment: Patient ID: Sia Simons is a 24 y.o. female who presents for Routine Visit Patient presents today for Annual Exam. and Return OB appointment. MEDICATIONS No current outpatient medications ALLERGIES Allergies Allergen Reactions Penicillins Hives Allergic reaction at age 4-5 years old; Tolerated Keflex in 2018 PROBLEMS Active Ambulatory Problems Diagnosis Date Noted [...] SYSTEMS Review of Systems: Review of Systems All other systems reviewed and are negative. OBJECTIVE Objective: Physical Exam Constitutional: Appearance: Normal appearance. She is well-developed. Genitourinary: Vulva normal. Breasts: Breasts are soft. Right: Normal. Left: Normal. Cardiovascular: Rate and Rhythm: Normal rate and regular rhythm. Pulmonary: Effort: Pulmonary effort is normal. Breath sounds: Normal breath sounds. Abdominal: General: Bowel sounds are normal. There is no distension. Palpations: Abdomen is soft. Tenderness: There is no abdominal tenderness. There is no guarding or rebound. Musculoskeletal: General: No swelling. Normal range of motion. Right lower leg: No edema. Left lower leg: No edema. Neurological: Mental Status: She is alert and oriented to person, place, and time. Skin: General: Skin is warm and dry. Psychiatric: Mood and Affect: Mood normal. Behavior: Behavior normal. Vitals and nursing note reviewed. Exam conducted with a instructor dramatic arts present. Vitals: There is no height or weight on file to calculate BMI. BP: 106/64 Patient's last menstrual period was 02/17/2024. ASSESSMENT & PLAN ICD-10-CM 1. Second trimester Z34.92 2. 22 weeks gestation of Z3A.22 Return OB/Annual Exam: Patient presents today for an annual exam/routine obstetrics appointment. Patient is currently 24w0d . Patient is doing well and states she has no complaints. Pap/cultures was obtained without difficulty and patient was given [facility] order to have obtained. Follow Up: Patient is to return to our office in 4 weeks for routine OB appointment Documented by Consuelo Hernandez LPN on behalf of: ADELINE Ward documented in this encounter [facility] History of Present illness Narrative 06-20-2024 Colleen [...] nursing note reviewed. Exam conducted with a instructor dramatic arts present. Vitals: There is no height or [...] Colleen Choi LPN on behalf of: Jane Stewart PA-C documented in this encounter [facility] [...] or undercooked meat, and stay away from [facility]. Patient has also been advised to [...] by: Nahed Louie documented in this encounter [facility] Evaluation note Note Date & Type Note Facility Evaluation note Diagnosis Missed menses , unspecified gestational age Encounter for supervision of normal first in first trimester 18 weeks gestation of Second trimester state, incidental documented in this encounter [facility] Evaluation note Note Date & Type Note Facility Evaluation note Diagnosis Second trimester state, incidental Screening, , for anatomic survey Encounter for anatomic survey documented in this encounter [facility] Evaluation note Note Date & Type Note Facility Evaluation note Diagnosis Second trimester state, incidental 22 weeks gestation of documented in this encounter [facility] Healthcare Evaluation note Note Date & Type Note Facility Evaluation note Diagnosis Diabetes mellitus screening Screening for diabetes mellitus 28 weeks gestation of Third trimester state, incidental documented in this encounter [facility] Healthcare Summary Purpose Family History No Family History Records FoundNo Family History Records FoundNo Family History Records Found Advance Directives No Advanced Directives Records FoundNo Advanced Directives Records FoundNo Advanced Directives Records Found Additional Source Comments INFORMATION SOURCE (unrecogn ized section and content) DATE CREATED AUTHOR 04/09/2020 [facility] DATE CREATED AUTHOR AUTHOR'S ORGANIZ ATION 08/30/2024 [facility] EPIC DATE CREATED AUTHOR AUTHOR'S ORGANIZ ATION 09/04/2024 [facility] Reason for Visit (unrecogniz ed section and content) Reason Comments Initial Visit Reason Comments Routine Visit Care Teams (unrecognized sec tion and content) Heating Equipment Repairer Relationship Specialty Start Date End Date Swapna Omalley NP [address] [place] [address] PCP - [facility] 12/06/23 Heating Equipment Repairer Relationship Specialty Start Date End Date Swapan Omlaley NP [address] [place] [address] PCP - [facility] 12/06/23 Heating Equipment Repairer Relationship Specialty Start Date End Date Swapna Omalley NP [address] [place] [address] PCP - [facility] [place] [facility] 12/06/23 Heating Equipment Repairer Relationship Specialty Start Date End Date Swanpa Omalley NP [address] [facility] [place] [address] PCP - [facility] 12/06/23 Heating Equipment Repairer Relationship Specialty Start Date End Date Swapna Omalley NP [address] [facility] [place] [address] PCP - [facility] 12/06/23 FOR RECORDS PERTAINING TO PATIENTS WHO [...] BE BASED ON THE PRIMARY CLINICAL RECORDS. [facility] [employer] [facility]. provides no warranty or guarantee of the accuracy or completeness of information in this document.
[2024-09-04 13:25] LABS: Basophils Percent Auto 0.2 % (0.2-2.0); Eosinophils Absolute Auto 0.1 10^3/uL (0.0-0.7); Hematocrit 35.9 % (36.0-48.0); Hemoglobin 11.7 g/dL (12.0-16.0); Immature Granulocytes Abs Auto 0.03 10^3/uL (0.00-0.03); Immature Granulocytes Pct Auto 0.3 % (0.0-0.5); Lymphocytes Absolute Auto 1.1 10^3/uL (1.2-3.8); Lymphocytes Percent Auto 12.7 % (20.5-60.0); Mean Corpuscular HGB Conc 32.6 g/dL (29.9-35.2); Mean Corpuscular Hemoglobin 30.5 pg (26.7-34.0); Mean Corpuscular Volume 93.7 fL (81.0-99.0); Mean Platelet Volume 12.1 fL (9.5-13.5); Monocytes Absolute Auto 0.6 10^3/uL (0.3-0.8); Monocytes Percent Auto 6.6 % (1.7-12.0); Neutrophils Percent Auto 79.2 % (43.0-75.0); Platelet Count 137 10^3/uL (150-450); Red Blood Count 3.83 10^6/uL (4.20-5.40); Red Cell Distribution Width 12.3 % (11.0-15.0); White Blood Count 8.8 10^3/uL (4.0-11.0)
[2024-09-04 13:43] LABS: Glucose 1 Hour 106 mg/dL (<130)
== END 2024-09-04 12:01 | disposition home or self-care (01) ==
LOC: LAB 12:01
PROVIDERS: Visit Provider Obstetrics & Gynecology
DX: Z34.93 Encounter for supervision of normal pregnancy, unspecified, third trimester (principal); Z3A.28 28 weeks gestation of pregnancy
CPT/HCPCS: 82950; 85025

== ENCOUNTER 2024-10-13 01:50 | Outpatient (OUT) | payer MEDICAID, SELFPAY ==
--- OUTSIDE RECORDS SUMMARY | 2024-10-13 01:55 | XMS_ITS | CCD ---
Author Organization [facility] Care Team Providers Care Road Gang Supervisor Name Role Phone SHIRA ARMSTRONG Admitting Unavailable SHIRA ARMSTRONG Attending Unavailable JODEE RUBALCAVA Consulting Unavailable [facility] Primary Care Unavailable IVET STAUFFER Consulting Unavailable Shahram LEATHER SCRAPER, Swapna Bowser Unavailable DAVID SOLO Admitting Unavailable DAVID SOLO Attending Unavailable [facility] Primary Care Unava ilable JANE STEWART Referring Unavailable ZENON HARDY Attending Unavailable ZENON HARDY Attending Unavailable JANE STEWART Attending Unavailable ZENON HARDY Attending Unavailable JANE STEWART Attending Unavailable Services, [facility] Primary Care Provider Allergies Allergy Classification Reported Allergen(s) Allergy Type Date of Onset Reaction(s) Facility (2 sources) Penicillins; Translations: [PENICILLINS] Drug allergy (disorder) 7 [facility] (19 sources) Penicillins Propensity to adverse reactions 7 [facility] (1 source) Penicillins Propensity to adverse reactions to drug 7 [facility] Work Phone: Medications Current Medications Medication Drug Class(es) Dates Sig (Normalized) Sig (Original) famotidine 20 mg oral tablet (1 source) Histamine-2 Receptor Antagonist Start: 07-09-2020 take 1 tablet by mouth twice daily famotidine (PEPCID) 20 mg tablet Take 1 tablet (20 mg total) by mouth 2 (two) times a day. 60 tablet 07/09/2020 Active nitrofurantoin, macrocrystals 25 mg / nitrofurantoin, monohydrate 75 mg oral capsule (2 sources) Nitrofuran Antibacterial Start: 10-04-2024 End: 10-11-2024 take 1 capsule by mouth in the morning nitrofurantoin, macrocrystal-monohy drate, (Macrobid) 100 MG capsule Indications: Urinary tract infection without hematuria, site unspecified Take 1 capsule (100 mg) by mouth in the morning and 1 capsule (100 mg) before bedtime. Do all this for 7 days. 14 capsule 10/04/2024 10/11/2024 Active ondansetron 4 mg disintegrating oral tablet (5 sources) Serotonin-3 Receptor Antagonist Start: 07-09-2020 End: 10-18-2024 take 1 tablet by mouth every six hours as needed for nausea and vomiting and nausea and nausea ondansetron ODT (Zofran-ODT) 4 MG disintegrating tablet Indications: Nausea Take 1 tablet (4 mg) by mouth every 6 (six) hours if needed for nausea or vomiting 30 tablet 2 09/18/2024 10/18/2024 Active Problems Active Problems Problem Classification Problem Date Documented Da te Episodic/Chronic External cause codes: Struck by; against (1 source) Striking against or struck by other objects, initial encounter; Translations: [STRIKING AGNST/STRUCK OTH OBJ INIT] Onset: 04-09-2020 Menstrual disorders (1 source) Missed period; Translations: [Irregular menstruation, unspecified] 06-15-2024 Chronic Nausea and vomiting (2 sources) Nausea; Translations: [Nausea] 09-18-2024 Episodic Other complications of (2 sources) size does not accord with dates; Translations: [Uterine size-date discrepancy, unspecified trimester] 09-18-2024 Episodic Other complications of (2 sources) Poor growth affecting management; Translations: [Maternal care for other known or suspected poor growth, third trimester, not applicable or unspecified] 10-06-2024 Episodic Other connective tissue disease (3 sources) Pain in left hand; Translations: [PAIN IN LEFT HAND] Onset: 04-06-2020 Episodic Other and delivery including normal (13 sources) ; Translations: [Encounter for supervision of [...] [28 weeks gestation of ] 08-28-2024 Episodic Residual codes; unclassified (2 sources) Gestation period, 31 weeks; Translations: [31 weeks gestation of ] 09-18-2024 Episodic Residual codes; unclassified (2 sources) Gestation period, 33 weeks; Translations: [33 weeks gestation of ] 10-04-2024 Episodic Spondylosis; intervertebral disc disorders; other back problems (2 sources) Sciatica, left side; Translations: [Sciatica] Onset: 09-03-2024 Episodic Substance-related disorders (1 source) Nicotine dependence, cigarettes, uncomplicated; Translations: [NICOTINE DEPEND CIGARETTES UNCOMP] Onset: 04-09-2020 Chronic Superficial injury; contusion (1 source) Contusion of left hand, initial encounter; Translations: [CONTUSION LEFT HAND INITIAL ENC] Onset: 04-09-2020 Episodic Urinary tract infections (2 sources) Urinary tract infectious disease; Translations: [Urinary tract infection, site not specified] 10-04-2024 Episodic Past or Other Problems Problem Classification Problem Date Documented Da te Episodic/Chronic NEGATED: Highlighted row has been ruled out!Unclassified (1 source) No known active problems 09-03-2024 Results Test Name Value Interpretation Reference Range Facility US OB FOLLOW UP TRANSABDOMIN AL APPROACHon 10-04-2024 OB FOLLOW UP TRANSABDOMINAL APPROACH TITLE OF EXAM: OB Ultrasound: REASON FOR EXAM: Inconsistent size of fetus. COMPARISON: None TECHNIQUE: Grayscale and M-mode Doppler imaging is performed. FINDINGS: heart rate: 165 bpm MIKALA: 12.4 cm (8.1-24.8) BPD: 7.4 cm HC: 29.1 cm AC: 28.0 cm FL: 6.3 cm GA for sonogram: 31.8 wk (29.3-34.3) JV: 11/16/2024 Weight Estimate: Weight: 1924 gm / 4 lbs, 3 oz (2253-4103 gm) [place] Normal: 2346 cm (1143-1410 gm) [place]lock Wt%: 1% for 33.9 wks Limited for: Growth Presentation: Cephalic Lie: Longitudinal Amniotic Fluid: 12.4 cm Largest Fluid Pocket: 3.4 cm Heart Rate: 165 bpm The exam is limited for growth per ordering provider. No previous ultrasound imaging submitted. The gestational age based on provided JV is 33.9 weeks. The gestational age based on current ultrasound 31 weeks 8 days. This corresponds to a 1 percentile for growth based on JV of 33.9 weeks. cardiac activity 165 bpm. (Typically 110 to 160 bpm). IMPRESSION: 1. Symmetric IUGR based on provided dating. (From patient's JV), versus discordant dates. 2. tachycardia. OB follow-up recommended. *This report is generated using voice recognition reporting (WebRadar). On occasion WebRadar erroneously drops words from the report or replaces the spoken word with similar sounding words. Please call with any questions/concerns regarding this report.* Dictated and transcribed 10/04/24/dpd This report has been electronically signed and approved by the interpreting radiologist. Normal Not Available Comment on above: Order Comment: US OB SCAN FOR GROWTH Estimated Date of Delivery: 11/16/24 Gestational Age as of 09/18/2024: 31w4d Urinalysis macro (dipstick) panel (U)on 10-04-2024 Bilirubin, UA Positive Negative - 4(70) +++ mg/dL [facility] Comment on above: small Blood, UA Negative Negative - 50 Robbi/mcL [facility] Clarity, UA Clear [facility] Color, UA Lala [facility] Glucose, UA Negative Negative - 2000(110) ++++ mg/dL [facility] Interpretation and review of laboratory results Abnormal [facility] Ketones, UA Negative Negative - 160(16) ++++ mg/dL [facility] Leukocytes, UA Negative Negative - 500+++ Jose/mcL [facility] Nitrite, UA Positive Negative - Positive [facility] pH, UA 6 5 - 9 [facility] e Protein, UA Positive Negative - 2000(20) ++++ mg/dL [facility] Comment on above: 30 Spec Grav, UA 1.03 1 - 1.03 [facility] Urobilinogen, UA 0.2 0.2 - 12 mg/dL [facility] Urinalysis macro (dipstick) panel (U)on 09-18-2024 Bilirubin, UA Positive Negative - 4(70) +++ mg/dL [facility] Comment on above: small Blood, UA Negative Negative - 50 Robbi/mcL [facility] Clarity, UA Clear [facility] re Color, UA Lala [facility] e Glucose, UA Negative Negative - 2000(110) ++++ mg/dL [facility] Interpretation and review of laboratory results Abnormal [facility] Ketones, UA Positive Negative - 160(16) ++++ mg/dL [facility] Comment on above: trace Leukocytes, UA Positive Negative - 500+++ Jose/mcL [facility] Comment on above: small Nitrite, UA Positive Negative - Positive [facility] pH, UA 5.5 5 - 9 [facility] e Protein, UA Positive Negative - 2000(20) ++++ mg/dL [facility] Comment on above: 100 Spec Grav, UA 1.03 1 - 1.03 [facility] Urobilinogen, UA 1.0 0.2 - 12 mg/dL [facility] e ALL CBC WITH AUTO DIFFon BASOPHILS ABSOLUTE AUTO 0 [facility] Basophils/100 WBC (Bld) 0.2 % 0.2 - 2.0 % [facility] Eosinophils/100 WBC (Bld) 1 % 0.9 - 7.0 % [facility] Erythrocyte distribution width (RBC) [Ratio] 12.3 % 11.0 - 15.0 % [facility] Hematocrit (Bld) [Volume fraction] 35.9 % Low 36.0 - 48.0 % [facility] e Hemoglobin (Bld) [Mass/Vol] 11.7 g/dL Low 12.0 - 16.0 g/dL [facility] IMMATURE GRANULOCYTES ABS AUTO 0.03 [facility] Immature granulocytes/100 WBC (Bld) 0.3 % 0.0 - 0.5 % [facility] Interpretation and review of laboratory results Abnormal [facility] LYMPHOCYTES ABSOLUTE AUTO 1.1 Low [facility] Lymphocytes/100 WBC (Bld) 12.7 % Low 20.5 - 60.0 % [facility] MCH (RBC) [Entitic mass] 30.5 pg 26.7 - 34.0 pg [facility] MCHC (RBC) [Mass/Vol] 32.6 g/dL 29.9 - 35.2 g/dL [facility] MCV (RBC) [Entitic vol] 93.7 fL 81.0 - 99.0 fL [facility] MONOCYTES ABSOLUTE AUTO 0.6 [facility] Monocytes/100 WBC (Bld) 6.6 % 1.7 - 12.0 % [facility] NEUTROPHILS ABSOLUTE AUTO 7 High [facility] Neutrophils/100 WBC (Bld) 79.2 % High 43.0 - 75.0 % [facility] Platelet mean volume (Bld) [Entitic vol] 12.1 fL 9.5 - 13.5 fL [facility] EO # 0.1 [facility] PLT 137 Low [facility] RBC 3.83 Low [facility] WBC 8.8 [facility] DRUG SCREEN, URINEon 024 AMPHETAMINE/METHAMP Negative Normal NEG [facility] Comment on above: Result Comment: AMPH /METH screening cut off = 1000 ng/mL Performed By: #### D MONTENEGRO #### [facility] ([id number]) [address] [place] [address] BARBITURATES Negative Normal NEG [facility] Comment on above: Result Comment: Mackenzie iturates screening cut off value = 200 ng/mL Performed By: #### D MONTENEGRO #### [facility] ([id number]) [address] [place] [address] BENZODIAZEPINES Negative Normal NEG [facility] Comment on above: Result Comment: Horacio odiazepines screening cut off value = 200 ng/mL Performed By: #### D MONTENEGRO #### [facility] ([id number]) [address] [place] [address] CANNABINOIDS Negative Normal NEG [facility] Comment on above: Result Comment: Ryan abinoids/THC screening cut off value = 50 ng/mL Performed By: #### D MONTENEGRO #### [facility] ([id number]) [address] [place] [address] COCAINE METABOLITE Negative Normal NEG [facility] Comment on above: Result Comment: Coca ine screening cut off value = 300 ng/mL Performed By: #### D MONTENEGRO #### [facility] ([id number]) [address] [place] [address] ECSTASY Negative Normal [facility] Comment on above: Result Comment: Ecst asy screening cut off value = 500 ng/mL This report is intended for use in clinical monitoring or management of patients. Performed By: #### D MONTENEGRO #### [facility] ([id number]) [address] [place] [address] METHADONE Negative Normal [facility] Comment on above: Result Comment: Meth adone screening cut off value = 300 ng/mL. Performed By: #### D MONTENEGRO #### [facility] ([id number]) [address] [place] [address] OPIATES Negative Normal NEG [facility] Comment on above: Result Comment: Opia taya screening cut off value = 300 ng/mL NOTE: This test is used for the detection of codeine, hydrocodone (>1000 ng/mL), morphine and hydromorphone (>900 ng/mL) in urine. Performed By: #### D MONTENEGRO #### [facility] ([id number]) [address] [place] [address] [place] [address] OXYCODONE Negative Normal NEG [facility] Comment on above: Result Comment: Oxyc odone screening cut off value = 300 ng/mL NOTE: This test is used for the detection of oxycodone and oxymorphone in urine. Performed By: #### D MONTENEGRO #### [facility] ([id number]) [address] [place] [address] PHENCYCLIDINE Negative Normal [facility] Comment on above: Result Comment: Phen cyclidine screening cut off value = 25 ng/mL Performed By: #### D MONTENEGRO #### [facility] ([id number]) [address] [place] [address], [place] [address] URINALYSISon 09-03-2024 Bilirubin Ql (U) Negative Normal NEG [facility] Comment on above: Performed By: #### U A #### [facility] ([id number]) [address] [place] [address], [place] [address] BLOOD/HGB Trace Abnormal NEG [facility] Comment on above: Performed By: #### U A #### [facility] ([id number]) [address] [place] [address], [place] [address] Color (U) YELLOW Normal YELLOW [facility] Comment on above: Performed By: #### U A #### [facility] ([id number]) [address] [place] [address] [place] [address] Glucose Ql (U) Negative Normal NEG [facility] Comment on above: Performed By: #### U A #### [facility] ([id number]) [address] [place] [address], [place] [address] Ketones Ql (U) Negative Normal NEG [facility] Comment on above: Performed By: #### U A #### [facility] ([id number]) [address] [place] [address], [place] [address] Leukocyte esterase Test strip Ql (U) Negative Normal NEG [facility] Comment on above: Performed By: #### U A #### [facility] ([id number]) [address] [place] [address], [place] [address] Nitrite Ql (U) Negative Normal NEG [facility] Comment on above: Performed By: #### U A #### [facility] ([id number]) [address] [place] [address], [place] [address] pH (U) 6.0 [pH] Normal 5.0-8.5 [facility] Comment on above: Performed By: #### U A #### [facility] ([id number]) [address] [place] [address] Protein Ql (U) Trace Abnormal NEG [facility] Comment on above: Performed By: #### U A #### [facility] ([id number]) [address] [place] [address] R.B.CELLS 1 /hpf Normal 0-5 [facility] Comment on above: Performed By: #### U A #### [facility] ([id number]) [address] [place] [address] Specific gravity (U) [Rel density] >1.030 Normal 1.003-1.035 [facility] Comment on above: Performed By: #### U A #### [facility] ([id number]) [address] [place] [address] SQUAMOUS EPITHELIUM 9 /hpf High 0-5 [facility] Comment on above: Performed By: #### U A #### [facility] ([id number]) [address] [place] [address] TURBIDITY CLEAR Normal CLEAR [facility] Comment on above: Performed By: #### U A #### [facility] ([id number]) [address] [place] [address] Urobilinogen Qn (U) 0.2 {Nathanael'U}/dL Normal <1.1 [facility] Comment on above: Performed By: #### U A #### [facility] ([id number]) [address] [place] [address] W.B.CELLS 0 /hpf Normal 0-5 [facility] Comment on above: Performed By: #### U A #### [facility] ([id number]) [address] [place] [address] Urinalysis macro (dipstick) panel (U)on 08-28-2024 Bilirubin, UA Negative Negative - (70) +++ mg/dL [facility] Blood, UA Negative Negative - 50 Robbi/mcL [facility] Clarity, UA Clear [facility] [employer] re Color, UA Yellow [facility] [employer] e Glucose, UA Negative Negative - 1999(110) ++++ mg/dL [facility] Interpretation and review of laboratory results Abnormal [facility] Ketones, UA Positive Negative - 160(16) ++++ mg/dL [facility] Comment on above: 15mg Leukocytes, UA Negative Negative - 500+++ Jose/mcL [facility] Nitrite, UA Negative Negative - Positive [facility] pH, UA 6 5 - 9 [facility] e Protein, UA Negative Negative - 1999(20) ++++ mg/dL [facility] Spec Grav, UA 1.03 1 - 1.03 [facility] Urobilinogen, UA 0.2 0.2 - 12 mg/dL [facility] Yo que Vos e IGP,APTIMA HPV,AGE GDLNon AGE GDLN ACOG TESTING Note . [facility] Comment on above: TESTS RESULT FLAG UN ITS REF RANGE LAB Clinician Provided Cytology Information Source.............Cervix No. of containers..01 ThinPrep Vial Age Algo ACOG Taya... FLAG LEGEND: L-Low Normal,H-High Normal,LL-Alert Low,HH-Alert High <-Panic Low,>-Panic High,A-Abnormal,AA-Critical Abnormal Performed at: 01 =G [facility] [address] [place] [address] Rowena Portillo MD, IGP, RFX APTIMA HPV ASCU Note . [facility] Comment on above: TESTS RESULT FLAG UN ITS REF RANGE LAB DIAGNOSIS: 02 NEGATIVE FOR INTRAEPITHELIAL LESION OR MALIGNANCY. Specimen adequacy: 02 Satisfactory for evaluation. No endocervical component is identified. Performed by: Edmundo Stern, Boat Patcher [employer] ([facility]) . 02 Note: Note 02 The Pap [...] High,A-Abnormal,AA-Critical Abnormal Performed at: 02 WB [facility] [address] [place], [place] [address] Rowena Portillo MD, Performed at: = - [facility] [id number] Coating Mixer Supervisor: Rowena Portillo MD, Phone: [phone] Performed at: [facility] [id number] Coating Mixer Supervisor: Rowena Portillo MD, Phone: [phone] SPATULA-ALONE CERVIX [facility] e RECURRENT VAGINITIS (HTRX)on 07-29-2024 ATOPOBIUM VAGINAE 0 [facility]care ATOPOBIUM VAGINAE Not detected [facility] BVAB 2,3 (BACTERIAL VAGINOSIS ASSOCIATED BACTERIA 2, 3); MOBILUNCUS SPP 0 [facility] BVAB 2,3 (BACTERIAL VAGINOSIS ASSOCIATED BACTERIA 2, 3); MOBILUNCUS SPP Not detected [facility] IWONA ALBICANS, PARAPSILOSIS, TROPICALIS 0 [facility] IWONA ALBICANS, PARAPSILOSIS, TROPICALIS Not detected [facility] I[facility]ONA GLABRATA 0 [facility] GLABRATA Not detected [facility] KRUSEI Not detected [facility] CHLAMYDIA TRACHOMATIS 0 [facility] CHLAMYDIA TRACHOMATIS Not detected [facility] GARDNERELLA VAGINALIS 0 [facility] GARDNERELLA VAGINALIS Not detected [facility] MEGASPHAERA (TYPES 1, 2) 0 [facility] MEGASPHAERA (TYPES 1, 2) Not detected [facility] MYCOPLASMA GENITALIUM 0 [facility] MYCOPLASMA GENITALIUM Not detected [facility] NEISSERIA GONORRHOEAE 0 [facility] NEISSERIA GONORRHOEAE Not detected [facility] TRICHOMONAS VAGINALIS 0 [facility] TRICHOMONAS VAGINALIS Not detected [facility] Urinalysis macro (dipstick) panel (U)on 06-20-2024 Bilirubin, UA Negative Negative - 4(70) +++ mg/dL [facility] Blood, UA Negative Negative - 50 Robbi/mcL [facility] Clarity, UA Clear [facility] Color, UA Yellow [facility] e Glucose, UA Negative Negative - 2000(110) ++++ mg/dL [facility] Interpretation and review of laboratory results Abnormal [facility] Ketones, UA Negative Negative - 160(16) ++++ mg/dL [facility] Leukocytes, UA Negative Negative - 500+++ Jose/mcL [facility] Nitrite, UA Negative Negative - Positive [facility] pH, UA 5.5 5 - 9 [facility] Protein, UA Negative Negative - 1999(20) ++++ mg/dL [facility] Spec Grav, UA 1.03 1 - 1.03 [facility] Urobilinogen, UA 1.0 0.2 - 12 mg/dL [facility] ALL CBC WITH AUTO DIFFon BASOPHILS ABSOLUTE AUTO 0 [facility] Basophils/100 WBC (Bld) 0.1 % Low 0.2 - 2.0 % [facility] Eosinophils/100 WBC (Bld) 1 % 0.9 - 7.0 % [facility] Erythrocyte distribution width (RBC) [Ratio] 12.4 % 11.0 - 15.0 % [facility] Hematocrit (Bld) [Volume fraction] 36.7 % 36.0 - 48.0 % [facility] Hemoglobin (Bld) [Mass/Vol] 12.4 g/dL 12.0 - 16.0 g/dL [facility] IMMATURE GRANULOCYTES ABS AUTO 0.03 [facility] Immature granulocytes/100 WBC (Bld) 0.4 % 0.0 - 0.5 % [facility] Interpretation and review of laboratory results Abnormal [facility] LYMPHOCYTES ABSOLUTE AUTO 0.9 Low [facility] Lymphocytes/100 WBC (Bld) 10.9 % Low 20.5 - 60.0 % [facility] MCH (RBC) [Entitic mass] 30.7 pg 26.7 - 34.0 pg [facility] MCHC (RBC) [Mass/Vol] 33.8 g/dL 29.9 - 35.2 g/dL [facility] MCV (RBC) [Entitic vol] 90.8 fL 81.0 - 99.0 fL [facility] MONOCYTES ABSOLUTE AUTO 0.5 [facility] Monocytes/100 WBC (Bld) 6 % 1.7 - 12.0 % [facility] NEUTROPHILS ABSOLUTE AUTO 6.8 High [facility] Neutrophils/100 WBC (Bld) 81.6 % High 43.0 - 75.0 % [facility] Platelet mean volume (Bld) [Entitic vol] 11.5 fL 9.5 - 13.5 fL [facility] EO # 0.1 [facility] PLT 136 Low [facility] RBC 4.04 Low [facility] WBC 8.3 [facility] HCG ( test) Ql (U)o n 06-15-2024 Interpretation and review of laboratory results Abnormal [facility] Preg Test, Ur Positive [facility] care [facility] Urinalysis macro (dipstick) panel (U)on 06-15-2024 Bilirubin, UA Negative Negative - 4(70) +++ mg/dL [facility] Blood, UA Negative Negative - 50 Robbi/mcL [facility] Clarity, UA Clear [facility] re Color, UA Yellow [facility] e Glucose, UA Negative Negative - 1999(110) ++++ mg/dL [facility] Interpretation and review of laboratory results Abnormal [facility] Ketones, UA Positive Negative - 160(16) ++++ mg/dL [facility] Comment on above: trace Leukocytes, UA Negative Negative - 500+++ Jose/mcL [facility] Nitrite, UA Negative Negative - Positive [facility] pH, UA 5.5 5 - 9 [facility] e Protein, UA Negative Negative - 1999(20) ++++ mg/dL [facility] Spec Grav, UA 1.030 1 - 1.03 [facility] [facility] Urobilinogen, UA 0.2 0.2 - 12 mg/dL [facility] HAND LT MIN 3Von [...] by: IVET STAUFFER Date: 2020-04-06 21:56 Normal [facility] Vital Signs Date Time Vital Sign Value Performing Clinician Annai savagey 10-04-2024 11:22-0500 Body weight 79.11 kg Zenon Antony DO Work Phone: [facility] 10-04-2024 11:22-0500 Diastolic blood pressure 60 mm[Hg] Zenon Antony DO Work Phone: [facility] 10-04-2024 11:22-0500 Systolic blood pressure 110 mm[Hg] Zenon Antony DO Work Phone: [facility] 09-18-2024 10:19-0500 Body weight 77.62 kg Jane LR Work Phone: [facility] 09-18-2024 10:19-0500 Diastolic blood pressure 60 mm[Hg] Jane LR Work Phone: [facility] 09-18-2024 10:19-0500 Systolic blood pressure 104 mm[Hg] Jane LR Work Phone: [facility] 08-28-2024 15:12-0500 Body weight 80.92 kg Zenon Antony DO Work Phone: [facility] 08-28-2024 15:12-0500 Diastolic blood pressure 54 mm[Hg] Zenon Antony DO Work Phone: [facility] 08-28-2024 15:12-0500 Systolic blood pressure 108 mm[Hg] Zenon Antony DO Work Phone: [facility] 07-27-2024 15:36-0500 Body weight 77.11 kg Jane LR Work Phone: [facility] 07-27-2024 15:36-0500 Diastolic blood pressure 64 mm[Hg] Jane LR Work Phone: [facility] 07-27-2024 15:36-0500 Systolic blood pressure 106 mm[Hg] Jane Stewart PA Work Phone: [facility] 06-20-2024 11:01-0400 Body weight 76.2 kg Zenon Antony DO Work Phone: [facility] 06-20-2024 11:01-0400 Diastolic blood pressure 70 mm[Hg] Zenon Antony DO Work Phone: [facility] 06-20-2024 11:040 Systolic blood pressure 108 mm[Hg] Zenon Antony DO Work Phone: [facility] 06-15-2024 13:41-0400 Body weight 74.84 kg Noms Nurse [facility] 06-15-2024 13:41-0400 Diastolic blood pressure 64 mm[Hg] Noms Nurse [facility] 06-15-2024 13:41-0400 Systolic blood pressure 102 mm[Hg] Nom Nurse [facility] Healthcare Encounters Encounter Date Encounter Type Care Provider Facility Start: 10-06-2024 End: 10-06-2024 Orders Only Alise Zimmerman RN Maternal- Medic ine at [facility] Comment on above: Poor growth af fecting management of mother in third trimester, single or unspecified fetus (Primary Dx) Start: 10-04-2024 End: 10-04-2024 Office outpatient visit 15 minutes Zenon Antony DO Work Phone: [facility] Comment on above: 33 weeks gestation o f ; Third trimester ; Urinary tract infection without hematuria, site unspecified Start: 10-04-2024 End: 10-04-2024 ambulatory ZENON ANTONY Not Available Start: 09-18-2024 End: 09-18-2024 Bamboo flowsheet Jane LR Work Phone: [facility] Start: 09-18-2024 End: 09-18-2024 Bamboo flowsheet Jane LR Work Phone: [facility] Start: 09-18-2024 End: 09-18-2024 Office outpatient visit 15 minutes Jane LR Work Phone: [facility] Comment on above: 31 weeks gestation o f ; Third trimester ; Nausea; size inconsistent with dates Start: 09-18-2024 End: 09-18-2024 ambulatory JANE STEWART Not Available Start: 09-04-2024 End: 09-04-2024 Clinisync Result Encounter Zenon Antony DO Work Phone: [facility] External Department Unsolicited Start: 09-04-2024 End: 09-04-2024 Clinisync Result Encounter Zenon Antony DO Work Phone: [facility] External Department Unsolicited Start: 09-03-2024 End: 09-03-2024 ambulatory DAVID [facility] Start: 08-28-2024 End: 08-28-2024 Office outpatient visit 15 minutes Zenon Antony DO Work Phone: [facility] Comment on above: Diabetes mellitus sc reening; 28 weeks gestation of ; Third trimester Start: 08-28-2024 End: 08-28-2024 ambulatory ZNEON ANTONY Not Available Start: 08-28-2024 End: 08-28-2024 Bamboo flowsheet Zenon Antony DO Work Phone: [facility] Start: 08-28-2024 End: 08-28-2024 Bamboo flowsheet Zenon Antony DO Work Phone: [facility] Start: 07-27-2024 End: 07-27-2024 Periodic preventive med est patient 18-39 yrs Jane LR Work Phone: [facility] Comment on above: Second trimester pre gnancy; 22 weeks gestation of Start: 07-27-2024 End: 07-27-2024 ambulatory JANE STEWART Not Available Start: 07-27-2024 End: 07-27-2024 Bamboo flowsheet Jane LR Work Phone: [facility] Start: 07-27-2024 End: 08-07-2024 Bamboo flowsheet Jane LR Work Phone: [facility] Start: 07-27-2024 End: 08-07-2024 Clinisync Result Encounter Jane LR Work Phone: [facility] External Department Unsolicited Start: 07-27-2024 End: 07-29-2024 External Result Encounter Jane LR Work Phone: [facility] External Department Unsolicited Start: 06-20-2024 End: 06-20-2024 Bamboo flowsheet Zenon Antony DO Work Phone: [facility] Start: 06-20-2024 End: 06-20-2024 Bamboo flowsheet Zenon Antony DO Work Phone: [facility] Start: 06-20-2024 End: 06-20-2024 Office outpatient visit 15 minutes Zenon Antony DO Work Phone: [facility] Comment on above: Second trimester [...] GA: 18w0d Start: 06-15-2024 End: 06-15-2024 ambulatory JANE STEWART Not Available Start: 04-06-2020 End: 04-06-2020 Patient encounter procedure SHIRA L[place] Facility: Procedures Date Procedure Procedure Detail Performing Clinician Start: 10-04-2024 Urnls dip stick/tabl et rgnt non-auto w/o micrscp Zenon Antony DO Work Phone: Start: 09-18-2024 Urnls dip stick/tabl et rgnt non-auto w/o micrscp Jane Stewart PA Work Phone: Start: 09-04-2024 ALL CBC WITH AUTO DIFF Zenon Antony DO Work Phone: Start: 08-28-2024 Urnls dip stick/tabl et rgnt [...] Treatment Date Care Activity Detail Author Start: 09-03-2025 Tobacco Screening Tobacco Screening [facility] Start: 11-03-2024 End: 10-06-2025 US MFM with or without consult US MFM with or without consult Imaging Routine Poor growth affecting management of mother in third trimester, single or unspecified fetus Expected: 11/03/2024 (Approximate), Expires: 10/06/2025 [facility] Work Phone: Comment on above: Expected: 11/03/2024 (Approximate), Expires: 10/06/2025 Start: 10-19-2024 End: 10-19-2024 Patient encounter procedure 10/19/2024 1:30 PM EST Routine [facility] [address] [place] [address] Jane Stewart PA [address] [place] [address] [facility] Start: 10-12-2024 End: 10-12-2024 Patient encounter procedure 10/12/2024 1:00 PM EST Appointment Maternal Medicine [address] [facility] [place] [address] Maternal [facility] [place] Start: 10-04-2024 End: 10-04-2024 Patient encounter procedure 10/04/2024 11:30 AM EST Routine [facility] [address] [place] [phone] Zenon Hardy, DO [address] [place] [address] [facility] Start: 10-04-2024 End: 10-04-2024 Professional / ancillary services management 10/04/2024 11:00 AM EST Ancillary Procedure [facility] [address] [facility] [place] [phone] [facility] Start: 09-18-2024 End: 09-18-2025 US for US OB follow up transabdominal approach Imaging Routine size inconsistent with dates Expected: 09/18/2024, Expires: 09/18/2025 [facility] Work Phone: Comment on above: Expected: 09/18/2024 , Expires: 09/18/2025 Start: 09-18-2024 End: 09-18-2024 Patient encounter procedure [facility] Comment on above: Arrived Start: 08-28-2024 End: 08-28-2024 Patient encounter procedure [...] PM EST Routine [facility] [address] [place] [phone] Jane Stewart PA [address] [place], [place] [id number] Arrived [facility] Comment on above: Arrived Start: 07-18-2024 End: 07-18-2024 Patient encounter procedure 07/18/2024 10:10 AM EST Routine [facility] [address] [place] [phone] Zenon Hardy DO [address] [place], [place] [id number] [facility] Start: 07-04-2024 End: 07-04-2024 Professional / ancillary services management 07/04/2024 2:00 PM EDT Ancillary Procedure [facility] [address] [place] [address] [facility] Start: 06-20-2024 End: 06-20-2025 US for US OB ANATOMY SINGLE W US OB CERVICAL LENGTH Imaging Routine Screening, , for anatomic survey Expected: 06/20/2024 (Approximate), Expires: 06/20/2025 [facility] Work Phone: Comment on above: Expected: 06/20/2024 (Approximate), Expires: 06/20/2025 Start: 06-20-2024 End: 06-20-2024 Patient encounter procedure [facility] Comment on above: Arrived Start: 06-15-2024 End: 06-15-2025 ABO/Rh ABO/Rh Lab Routine Missed menses , unspecified gestational age Expected: 06/15/2024 (Approximate), Expires: 06/15/2025 [facility] Comment on above: Expected: 06/15/2024 (Approximate), [...] first trimester Expected: 06/15/2024 (Approximate), Expires: 06/15/2025 [facility] Comment on above: Expected: 06/15/2024 (Approximate), Expires: 06/15/2025 Start: 06-15-2024 End: 06-15-2025 US for US OB > 14 WEEKS Imaging Routine Missed menses Expected: 06/15/2024 (Approximate), Expires: 06/15/2025 [facility] Comment on above: Expected: 06/15/2024 (Approximate), Expires: 06/15/2025 Start: 05-07-2024 Influenza vaccination [facility] Start: 06-08-2022 DTaP,Tdap and Td Vaccines (2 - Td or Tdap) DTaP,Tdap and Td Vaccines (2 - Td or Tdap) [facility] Start: 02-01-2020 Screening for malign ant neoplasm of cervix Pap Smear [facility] Start: 2017 Adult BMI Screening Adult BMI Screen ing [facility] Start: 2011 [facility] Tobacco Counseling Tobacco Counselin [facility] Bacteria identified in Urine by Culture Urine culture Microbiology Routine Missed menses Ordered: 06/15/2024 [facility] Comment on above: Ordered: 06/15/2024 CBC W Auto Different ial panel - Blood CBC and differential Lab Routine Missed menses , unspecified gestational age Ordered: 06/15/2024 [facility] Comment on above: Ordered: 06/15/2024 CHLAMYDIA TRACHOMATI S (GENITO/STI) CHLAMYDIA TRACHOMATIS (GENITO/STI) Lab Routine Second trimester 22 weeks gestation of Ordered: 07/27/2024 [facility] Comment on above: Ordered: 07/27/2024 Cytology Cervical or vaginal smear or scraping study Pap Smear Pathology and Cytology Routine Second trimester 22 weeks gestation of Ordered: 07/27/2024 [facility] Work Phone: Comment on above: Ordered: 07/27/2024 Hemoglobin A1c/Hemoglobin.total in Blood Hemoglobin A1c Lab Routine Missed menses , unspecified gestational age Ordered: 06/15/2024 [facility] Comment on above: Ordered: 06/15/2024 Hepatitis B virus surface Ag [Presence] in Serum or Plasma by Immunoassay Hepatitis B surface antigen Lab Routine Missed menses , unspecified gestational age Ordered: 06/15/2024 [facility] Comment on above: Ordered: 06/15/2024 Hepatitis C virus Ab [Presence] in Serum or Plasma by Immunoassay Hepatitis C antibody Lab Routine Missed menses , unspecified gestational age Ordered: 06/15/2024 [facility] Comment on above: Ordered: 06/15/2024 HIV-1/HIV-2 antigen/antibody combination immunoassay HIV-1 and HIV-2 antibodies Lab Routine Missed menses , unspecified gestational age Ordered: 06/15/2024 [facility] Comment on above: Ordered: 06/15/2024 Neisseria gonorrhoea e DNA [Presence] in Unspecified specimen by SEAN with probe detection Neisseria gonorrhea DNA probe, direct Lab Routine Second trimester 22 weeks gestation of Ordered: 07/27/2024 [facility] Comment on above: Ordered: 07/27/2024 Reagin Ab [Presence] in Serum by RPR RPR Lab Routine Missed menses , unspecified gestational age Ordered: 06/15/2024 [facility] Comment on above: Ordered: 06/15/2024 Rubella antibody, IgG Rubella an tibody, IgG Lab Routine Missed menses , unspecified gestational age Ordered: 06/15/2024 [facility] Healthcare Comment on above: Ordered: 06/15/2024 SURESWAB(R) ADVANCED VAGINITIS PLUS, TMA SURESWAB(R) ADVANCED VAGINITIS PLUS, TMA Pathology and Cytology Routine Second trimester 22 weeks gestation of Ordered: 07/27/2024 [facility] Comment on above: Ordered: 07/27/2024 Payers Date Payer Category Payer Medicaid [id number] 2022 Medicaid [id number] 1999 Unknown [id number] 2.16.84 [id number] 1999 Unknown [id number] 2.16.84 [id number] 1999 Unknown [id number] 2.16.84 [id number] 1999 Unknown [id number] 2.16.84 [id number] 1999 Unknown [id number] 2.16.84 [id number] 1999 Unknown [id number] 2.16.84 [id number] 1999 Unknown [id number] 2.16.84 [id number] 1999 Unknown [id number] 2.16.84 [id number] 1959 Unknown [id number] Social History Date Type Detail Facility Tobacco smoking stat [facility] Tobacco smoking consumption unknown [facility] Start[facility] 02-23-20[facility] Start: [facility] Sex assigned at Female [facility] Start: 06-08-2024 Gender identity Identifies as female gender (finding) [facility] Start: 10-17-2020 End: 09-03-2024 Sexual orientation Not on file [facility] Start: 09-26-2008 Tobacco smoking stat us CAIS Smokes tobacco daily [facility] Start: 09-26-2008 End: 05-07-2018 History of tobacco use Cigarette Smoker [facility] Start: 11-13-2018 End: 10-17-2020 Cigarettes smoked current (pack per day) - Reported 1 [facility] Start: 11-13-2018 Tobacco use and exposure Smokeless tobacco non-user [facility] Start: 09-03-2024 Alcoholic beverage intake Current non-drinker of alcohol (finding) [facility] Are you worried or concerned that in the next two months you may not have stable housing that you own, rent or stay in as a part of a household? No [facility] Start: 2000 Sex assigned at Not on file [facility] Start: 04-11-2015 Sex Female (finding) [facility] Clinical Notes 06-15-2024 to 10-04-2024 Colleen Choi LPN - 10/04/2024 11:30 AM ADELINE Haider - 09/18/2024 10:20 AM Chilo Hernandez DIRECTOR OF STUDENT SERVICES - 08/28/2024 2:50 PM ADELINE Haider - 07/27/2024 3:20 PM EST Note Date & Type Note Facility 10-04-2024 History of Presen t illness Narrative Reason for Appointment: Patient ID: Sia Simons is a 24 y.o. female who presents for No chief complaint on file. Patient presents today for Return OB appointment. MEDICATIONS Current Outpatient Medications Medication Instructions ondansetron ODT (ZOFRAN-ODT) 4 mg, Oral, Every 6 hours PRN ALLERGIES Allergies Allergen Reactions Penicillins Hives Allergic [...] nursing note reviewed. Exam conducted with a insole and outsole splitter present. Vitals: There is no height or weight on file to calculate BMI. BP: 110/60 Patient's last menstrual period was 02/17/2024. ASSESSMENT & PLAN ICD-10-CM 1. 33 weeks gestation of Z3A.33 POCT urinalysis dipstick manually resulted 2. Third trimester Z34.93 POCT urinalysis dipstick manually resulted Return OB: Patient presents today for a routine obstetrics appointment. Patient is currently 33w6d . Patient states she is doing well but has complaints of being tired due to current . Pt has pressure and pain below- positive for UTI, rx for macrobid faxed to pharmacy. Patient has verbalizes frequent movement. labor precautions was discussed/given and patient was instructed to perform kick counts three times a day. Orders Placed This Encounter Procedures POCT urinalysis dipstick manually resulted Follow Up: Patient is to return to office in 2 week for routine OB appointment. Documented by Colleen Choi LPN on behalf of: Zenon Hardy DO documented in this encounter [facility] 09-18-2024 History of Presen t illness Narrative Reason for Appointment: Patient ID: Sia Simons is a 24 y.o. female who presents for Routine Visit Patient presents today for Return OB appointment. MEDICATIONS Current Outpatient Medications Medication Instructions ondansetron ODT (ZOFRAN-ODT) 4 mg, Oral, Every 6 hours PRN ALLERGIES Allergies Allergen Reactions Penicillins Hives Allergic [...] weight on file to calculate BMI. BP: 104/60 Patient's last menstrual period was 02/17/2024. ASSESSMENT & PLAN ICD-10-CM 1. 31 weeks gestation of Z3A.31 POCT urinalysis dipstick manually resulted 2. Third trimester Z34.93 POCT urinalysis dipstick manually resulted 3. Nausea R11.0 ondansetron ODT (Zofran-ODT) 4 MG disintegrating tablet 4. size inconsistent with dates O26.849 US OB follow up transabdominal approach Return OB: Patient presents today for a routine obstetrics appointment. Patient is currently 31w4d . Patient states she is doing well but has complaints of being tired due to current . Patient has verbalizes frequent movement. labor precautions was discussed/given and patient was instructed to perform kick counts three times a day. Orders Placed This Encounter Procedures US OB follow up transabdominal approach POCT urinalysis dipstick manually resulted Follow Up: Patient is to return to office in 2 week for routine OB appointment. Documented by ADELINE Ward on behalf of: ADELINE Ward documented in this encounter [facility] 08-28-2024 History of Presen t illness Narrative [...] nursing note reviewed. Exam conducted with a insole and outsole splitter present. Vitals: There is no height or [...] Zenon Hardy DO documented in this encounter [facility] 07-27-2024 History of Presen t illness Narrative [...] obtained without difficulty and patient was given [facility] order to have obtained. Orders Placed This [...] nursing note reviewed. Exam conducted with a insole and outsole splitter present. Vitals: There is no height or [...] obtained without difficulty and patient was given [facility] order to have obtained. Follow Up: Patient is to return to our office in 4 weeks for routine OB appointment Documented by Consuelo Hernandez LPN on behalf of: ADELINE Ward documented in this encounter [facility] 06-20-2024 History of Presen t illness Narrative Reason for Appointment: Patient ID: Sia Simosn is a 24 y.o. female who presents [...] nursing note reviewed. Exam conducted with a insole and outsole splitter present. Vitals: There is no height or [...] Jane Stewart PA-C documented in this encounter [facility] 06-15-2024 History of Presen t illness Narrative [...] or undercooked meat, and stay away from [facility]. Patient has also been advised to [...] encounter [facility] Evaluation note Diagnosis Missed menses , unspecified gestational age Encounter for supervision of normal first in first trimester 18 weeks gestation of Second trimester state, incidental documented [facility] this encounter [facility] Diagnosis Second trimester state, incidental Screening, , for anatomic survey Encounter for anatomic survey documented in this [facility] Diagnosis Second trimester state, incidental 22 weeks gestation of documented in this encounter [facility]* Diagnosis Diabetes mellitus screening Screening for diabetes mellitus 28 weeks gestation of Third trimester state, incidental documented [facility] Diagnosis 31 weeks gestation of Third trimester state, incidental Nausea Nausea alone size inconsistent with dates documented [facility]* Diagnosis 33 weeks gestation of Third trimester state, incidental Urinary tract infection without hematuria, site unspecified documented [facility]* Diagnosis Poor growth affecting management of mother in third trimester, single or unspecified fetus- Primary documented in this encounter [facility] SystemInstructionsNot on filedocumented in this encounter [facility] Summary Purpose Family History No Family History Records FoundNo Family History Records FoundNo Family History Records Found Advance Directives Date Activated Date Inactivated Comments 05/27/2018 6:21 PM 05/27/2018 8:31 PM Additional Source Comments INFORMATION SOURCE (unrecogn ized section and content) DATE CREATED AUTHOR 04/09/2020 Loulou Robles [facility] DATE CREATED AUTHOR AUTHOR'S ORGANIZ ATION 09/04/2024 [facility] DATE CREATED AUTHOR AUTHOR'S ORGANIZ ATION 10/06/2024 [facility] EPIC Reason for Visit (unrecogniz ed section and content) Reason Comments Initial Visit Reason Comments Routine Visit Care Teams (unrecognized sec tion and content) Road Gang Supervisor Relationship Specialty Start Date End Date Swapna Omalley NP [address] [place] [address] PCP - [facility] Ana [facility] 12/06/23 Road Gang Supervisor Relationship Specialty Start Date End Date Swapna Omalley NP [address] [place] [address] PCP - [facility] nAa [facility] 12/06/23 Road Gang Supervisor Relationship Specialty Start Date End Date Swapna Omalley NP [address] [place] [address] PCP - [facility] Perez [facility] 12/06/23 Road Gang Supervisor Relationship Specialty Start Date End Date Swapna Omalley NP [address] [place] [address] PCP - [facility] Perez [facility] 12/06/23 Road Gang Supervisor Relationship Specialty Start Date End Date Swapna Omalley NP [address] [place] [address] PCP - [facility] Perez [facility] 12/06/23 Road Gang Supervisor Relationship Specialty Start Date End Date Swapna Omalley NP [address] [place] [address] PCP - [facility] Perez [facility] 12/06/23 Road Gang Supervisor Relationship Specialty Start Date End Date [facility], [address] [place], [place] PCP - General Family Medicine 11/13/18 FOR RECORDS PERTAINING TO PATIENTS WHO ARE [...] BE BASED ON THE PRIMARY CLINICAL RECORDS. [facility], [facility]. provides no warranty or guarantee of the accuracy or completeness of information in this document.
--- NOTE | 2024-10-13 08:40 | US_ITS ---
[address] [address] Patient Name: RUPINDER LAY MRN: [id number] date: 2000 Sex: F Assigned Patient Location: [facility] Current Patient Location: [facility] Accession/Order Number: [id number] Exam Date: 10/13/2024 09:05 Report Date: 10/13/2024 09:49 At the request of: ZENON GUZMAN Procedure: US OB BPP w non-stress EXAMINATION: US OB BPP w non-stress HISTORY: Poor growth COMPARISON: No relevant comparison available. TECHNIQUE: Ultrasound biophysical profile was performed in the radiology department. non-reactive stress testing was performed by nursing staff in the birthing center. FINDINGS: BREATHING MOVEMENTS: 2 GROSS BODY MOVEMENTS: 2 TONE: 2 QUALITATIVE AMNIOTIC FLUID VOLUME: 2 PRESENTATION: CEPHALIC HEART RATE: 135 bpm AMNIOTIC FLUID VOLUME: 15.7cm GESTATIONAL AGE: 35w1d US/US OB BPP w non-stress IMPRESSION: Total biophysical profile score: 8 Electronically authenticated by: KEYA DUNCAN Date: 10/13/2024 09:49
[2024-10-13 09:32] VITALS: BP 109/59; PULSE 96
== END 2024-10-13 10:05 | disposition home or self-care (01) ==
LOC: US 08:44 → FBC 08:51
PROVIDERS: Visit Provider Obstetrics & Gynecology
DX: O36.5930 Maternal care for other known or suspected poor fetal growth, third trimester, not applicable or unspecified (principal); Z3A.35 35 weeks gestation of pregnancy
CPT/HCPCS: 76818

== ENCOUNTER 2024-10-17 01:08 | Outpatient (OUT) | payer MEDICAID, SELFPAY ==
--- OUTSIDE RECORDS SUMMARY | 2024-10-17 01:12 | XMS_ITS | CCD ---
Author Organization [facility] Care Team Providers Care Gas Check Pad Maker Name Role Phone SHIRA ARMSTRONG Admitting Unavailable SHIRA ARMSTRONG Attending Unavailable JODEE RUBALCAVA Consulting Unavailable [place], DOCTOR Primary Care Unavailable IVET STAUFFER Consulting Unavailable Shahram QUICK PRINT OPERATOR, Swapna Bowser Unavailable DAVID SOLO Admitting Unavailable DAVID SOLO Attending Unavailable SERVICES, [facility] Unava ilable JANE STEWART Referring Unavailable ZENON HARDY Attending Unavailable ZENON HARDY Attending Unavailable JANE STEWART Attending Unavailable ZENON HARDY Attending Unavailable JANE STEWART Attending Unavailable Services, [facility] Care Provider ZENON HARDY Referring Unavailable SERVICES, [facility] Unava ilable Allergies Allergy Classification Reported Allergen(s) Allergy Type Date of Onset Reaction(s) Facility (3 sources) Penicillins; Translations: [PENICILLINS] Drug allergy (disorder) 7 [facility] (20 sources) Penicillins Propensity to adverse reactions 7 [facility] (1 source) Penicillins Propensity to adverse reactions to drug 7 [facility] Work Phone: Medications Current Medications Medication [...] Active ondansetron 4 mg disintegrating oral tablet (6 sources) Serotonin-3 Receptor Antagonist Start: 07-09-2020 End: [...] not applicable or unspecified] 10-06-2024 Episodic Other complications of (1 source) Maternal care for other known or suspected poor growth, third trimester, not applicable or unspecified; Translations: [Maternal care for other known or suspected poor growth, third trimester, not applicable or unspecified] Onset: 10-12-2024 Episodic Other connective tissue disease (3 sources) [...] Value Interpretation Reference Range Facility US OB BPP W NON-STRESS on 10-13-[address] [address] Ultrasound Report Signed Patient: SAI LAY MR#: [id number] : 2000 Acct:[id number] Age/Sex: 24 / F ADM Date: 10/13/24 Loc: [facility] 250-[address]: Zenon Hardy D.O. Ordering Physician: Zenon Hardy D.O. Date of Service: 10/13/24 Procedure(s): US OB BPP w non-stress Accession Number(s): [id number] cc: Zenon Hadry D.O.; Physician,Non-Staff Yessica The [address] [address] Patient Name: SIA LAY MRN: [facility]:[id number] date: 2000 Sex: F Assigned Patient Location: [facility] Current Patient Location: [facility] Accession/Order Number: [id number] Exam Date: 10/13/2024 09:05 Report Date: 10/13/2024 09:49 At the request of: ZENON HARDY Procedure: US OB BPP w non-stress EXAMINATION: US OB BPP w non-stress HISTORY: Poor growth COMPARISON: No relevant comparison available. TECHNIQUE: Ultrasound biophysical profile was performed in the radiology department. non-reactive stress testing was performed by nursing staff in the birthing center. FINDINGS: BREATHING MOVEMENTS: 2 GROSS BODY MOVEMENTS: 2 TONE: 2 QUALITATIVE AMNIOTIC FLUID VOLUME: 2 PRESENTATION: CEPHALIC HEART RATE: 135 bpm AMNIOTIC FLUID VOLUME: 15.7cm GESTATIONAL AGE: 35w1d US/US OB BPP w non-stress IMPRESSION: Total biophysical profile score: 8 Electronically authenticated by: KEYA DUNCAN Date: 10/13/2024 09:49 Dictated By: Keya Duncan M.D. Signed By: 10/13/24 0951 DD/ 0949 TD/TT: Director Compensation: [facility] Radiology, Radiologist, MD - 10/13/2024 [place] [address] Ultrasound Report Signed Patient: SIA LAY MR#: [id number] : 2000 Acct:[id number] Age/Sex: 24 / F ADM Date: 10/13/24 Loc: [facility] 250-[address]: Zenon Hardy D.O. Ordering Physician: Zenon Hardy D.O. Date of Service: 10/13/24 Procedure(s): US OB BPP w non-stress Accession Number(s): [id number] cc: Zenon Hardy D.O.; Physician,Non-Staff Yessica [place] [address] Patient Name: SIA LAY MRN: [facility]:[id number] date: 2000 Sex: F Assigned Patient Location: [facility] Current Patient Location: [facility] Accession/Order Number: [id number] Exam Date: 10/13/2024 09:05 Report Date: 10/13/2024 09:49 At the request of: ZENON HARDY Procedure: US OB BPP w non-stress EXAMINATION: US OB BPP w non-stress HISTORY: Poor growth COMPARISON: No relevant comparison available. TECHNIQUE: Ultrasound biophysical profile was performed in the radiology department. non-reactive stress testing was performed by nursing staff in the birthing center. FINDINGS: BREATHING MOVEMENTS: 2 GROSS BODY MOVEMENTS: 2 TONE: 2 QUALITATIVE AMNIOTIC FLUID VOLUME: 2 PRESENTATION: CEPHALIC HEART RATE: 135 bpm AMNIOTIC FLUID VOLUME: 15.7cm GESTATIONAL AGE: 35w1d US/US OB BPP w non-stress IMPRESSION: Total biophysical profile score: 8 Electronically authenticated by: KEYA DUNCAN Date: 10/13/2024 09:49 Dictated By: Keya Duncan M.D. Signed By: 10/13/2451 DD/ TD/TT: Director Compensation: [facility] [employer] Radiology Study observation (narrative) [facility] [employer] US OB BPP W NON-STRESS Ordered By: Radiologist Radiology on 10-13-2024 [facility] Work Phone: US OB FOLLOW UP TRANSABDOMIN AL APPROACHon 10-04-2024 US OB FOLLOW UP TRANSABDOMINAL APPROACH TITLE OF [...] 1924 gm / 4 lbs, 3 oz (4673-6662 gm) [place] Normal: 2346 cm (3647-8363 gm) [place] Wt%: 1% for 33.9 wks [...] report is generated using voice recognition reporting (Azonia). On occasion [employer] erroneously drops words from the report or [...] UA Positive Negative - 4(70) +++ mg/dL [facility] Comment on above: small Blood, UA Negative Negative - 50 Robbi/mcL [facility] Clarity, UA Clear [facility] Color, UA Lala [facility] Glucose, UA Negative Negative - 2000(110) ++++ mg/dL [facility] Interpretation and review of laboratory results Abnormal [facility] Ketones, UA Negative Negative - 160(16) ++++ mg/dL [facility] Leukocytes, UA Negative Negative - 500+++ Jose/mcL [facility] Nitrite, UA Positive Negative - Positive [facility] pH, UA 6 5 - 9 [facility] Protein, UA Positive Negative - 1999(20) ++++ mg/dL [facility] Comment on above: 30 Spec Grav, UA 1.03 1 - 1.03 [facility] Urobilinogen, UA 0.2 0.2 - 12 mg/dL [facility] Urinalysis macro (dipstick) panel (U)on 09-18-2024 Bilirubin, UA Positive Negative - 4(70) +++ mg/dL [facility] Comment on above: small Blood, UA Negative Negative - 50 Robbi/mcL [facility] Clarity, UA Clear [facility] re Color, UA Lala [facility] Glucose, UA Negative Negative - 1999(110) ++++ mg/dL [facility] Interpretation and review of laboratory results Abnormal [facility] Ketones, UA Positive Negative - 160(16) ++++ mg/dL [facility] Comment on above: trace Leukocytes, UA Positive Negative - 500+++ Jose/mcL [facility] Comment on above: small Nitrite, UA Positive Negative - Positive [facility] pH, UA 5.5 5 - 9 [facility] Protein, UA Positive Negative - 1999(20) ++++ mg/dL [facility] Comment on above: 100 Spec Grav, UA 1.03 1 - 1.03 [facility] Urobilinogen, UA 1.0 0.2 - 12 mg/dL [facility] ALL CBC WITH AUTO DIFFon BASOPHILS ABSOLUTE AUTO 0 [facility] Basophils/100 WBC (Bld) 0.2 % 0.2 - 2.0 % [facility] Eosinophils/100 WBC (Bld) 1 % 0.9 - 7.0 % [facility] Erythrocyte distribution width (RBC) [Ratio] 12.3 % 11.0 - 15.0 % [facility] Hematocrit (Bld) [Volume fraction] 35.9 % Low 36.0 - 48.0 % [facility] Hem[facility] (Bld) [Mass/Vol] 11.7 g/dL Low 12.0 - 16.0 g/dL [facility] IMMATURE GRANULOCYTES ABS AUTO 0.03 [facility] Immature granulocytes/100 WBC (Bld) 0.3 % 0.0 - 0.5 % [facility] Interpretation and review of laboratory results Abnormal [facility] LYMPHOCYTES ABSOLUTE AUTO 1.1 Low [facility] Lymphocytes/100 WBC (Bld) 12.7 % Low 20.5 - 60.0 % [facility] MCH (RBC) [Entitic mass] 30.5 pg 26.7 - 34.0 pg [facility] MCHC (RBC) [Mass/Vol] 32.6 g/dL 29.9 - 35.2 g/dL [facility] MCV (RBC) [Entitic vol] 93.7 fL 81.0 - 99.0 fL [facility] MONOCYTES ABSOLUTE AUTO 0.6 [facility] Monocytes/100 WBC (Bld) 6.6 % 1.7 - 12.0 % [facility] NEUTROPHILS ABSOLUTE AUTO 7 High [facility] Neutrophils/100 WBC (Bld) 79.2 % High 43.0 - 75.0 % [facility] Platelet mean volume (Bld) [Entitic vol] 12.1 fL 9.5 - 13.5 fL [facility] Healthc are TBH EO # 0.1 [facility] TB PLT 137 Low [facility] TB RBC 3.83 Low [facility] TBH WBC 8.8 [facility] Health[facility] e DRUG SCREEN, URINEon 024 AMPHETAMINE/METHAMP Negative Normal NEG [facility] Comment on above: Result Comment: AMPH /METH screening cut off = 1000 ng/mL Performed By: #### D MONTENEGRO #### [facility] ([id number]) [address] [place] [address] BARBITURATES Negative Normal NEG [facility] Comment on above: Result Comment: Mackenzie iturates screening cut off value = 200 ng/mL Performed By: #### D MONTENEGRO #### [facility] ([id number]) [address] [place] [address] BENZODIAZEPINES Negative Normal NEG [facility] Comment on above: Result Comment: Horacio odiazepines screening cut off value = 200 ng/mL Performed By: #### D MONTENEGRO #### [facility] ([id number]) [address] [place] [address] CANNABINOIDS Negative Normal NEG [facility] Comment on above: Result Comment: Ryan abinoids/THC screening cut off value = 50 ng/mL Performed By: #### D MONTENEGRO #### [facility] ([id number]) [address] [place] [address] COCAINE METABOLITE Negative Normal NEG [facility] Comment on above: Result Comment: Coca ine screening cut off value = 300 ng/mL Performed By: #### D MONTENEGRO #### [facility] ([id number]) [address] [place] [address] ECSTASY Negative Normal NEG [facility] Comment on above: Result Comment: Ecst asy screening cut off value = 500 ng/mL This report is intended for use in clinical monitoring or management of patients. Performed By: #### D MONTENEGRO #### [facility] ([id number]) [address] [place] [address] METHADONE Negative Normal [facility] Comment on above: Result Comment: Meth adone screening cut off value = 300 ng/mL. Performed By: #### D MONTENEGRO #### [facility] ([id number]) [address] [place] [address] OPIATES Negative Normal NEG [facility] Comment on above: Result Comment: Opia taya screening cut off value = 300 ng/mL NOTE: This test is used for the detection of codeine, hydrocodone (>1000 ng/mL), morphine and hydromorphone (>900 ng/mL) in urine. Performed By: #### D MONTENEGRO #### [facility] ([id number]) [address] [place] [address] [place] [address] OXYCODONE Negative Normal NEG [facility] Comment on above: Result Comment: Oxyc odone screening cut off value = 300 ng/mL NOTE: This test is used for the detection of oxycodone and oxymorphone in urine. Performed By: #### D MONTENEGRO #### [facility] ([id number]) [address] [place] [address] [place] [address] PHENCYCLIDINE Negative Normal NEG [facility] Comment on above: Result Comment: Phen cyclidine screening cut off value = 25 ng/mL Performed By: #### D MONTENEGRO #### [facility] ([id number]) [address] [place] [address] [place] [address] URINALYSISon 09-03-2024 Bilirubin Ql (U) Negative Normal NEG [facility] Comment on above: Performed By: #### U A #### [facility] ([id number]) [address] [place] [address] [place] [address] BLOOD/HGB Trace Abnormal NEG [facility] Comment on above: Performed By: #### U A #### [facility] ([id number]) [address] [place] [address] [place] [address] Color (U) YELLOW Normal YELLOW [facility] Comment on above: Performed By: #### U A #### [facility] ([id number]) [address] [place] [address] [place] [address] Glucose Ql (U) Negative Normal NEG [facility] Comment on above: Performed By: #### U A #### [facility] ([id number]) [address] [place] [address] [place] [address] Ketones Ql (U) Negative Normal NEG [facility] Comment on above: Performed By: #### U A #### [facility] ([id number]) [address] [place] [address] Leukocyte esterase Test strip Ql (U) Negative Normal NEG [facility] Comment on above: Performed By: #### U A #### [facility] ([id number]) [address] [place] [address] [place] [address] Nitrite Ql (U) Negative Normal NEG [facility] Comment on above: Performed By: #### U A #### [facility] ([id number]) [address] [place] [address] pH (U) 6.0 [pH] Normal 5.0-8.5 [facility] Comment on above: Performed By: #### U A #### [facility] ([id number]) [address] [place] [address] Protein Ql (U) Trace Abnormal NEG [facility] Comment on above: Performed By: #### U A #### [facility] ([id number]) [address] [place] [address] R.B.CELLS 1 /hpf Normal 0-5 [facility] Comment on above: Performed By: #### U A #### [facility] ([id number]) [address] [place] [address] Specific gravity (U) [Rel density] >1.030 Normal 1.003-1.035 [facility] Comment on above: Performed By: #### U A #### [facility] ([id number]) [address] [place] [address] SQUAMOUS EPITHELIUM 9 /hpf High 0-5 [facility] Comment on above: Performed By: #### U A #### [facility] ([id number]) [address] [place] [address] [place] [address] TURBIDITY CLEAR Normal CLEAR [facility] Comment on above: Performed By: #### U A #### [facility] ([id number]) [address] [place] [address] Urobilinogen Qn (U) 0.2 {Nathanael'U}/dL Normal <1.1 [facility] Comment on above: Performed By: #### U A #### [facility] ([id number]) [address] [place] [address] W.B.CELLS 0 /hpf Normal 0-5 [facility] Comment on above: Performed By: #### U A #### [facility] ([id number]) [address] [place] [address] Urinalysis macro (dipstick) panel (U)on 08-28-2024 Bilirubin, UA Negative Negative - 4(70) +++ mg/dL [facility] Blood, UA Negative Negative - 50 Robbi/mcL [facility] Clarity, UA Clear [facility] Healthms re Color, UA Yellow [facility] Health[facility] e Glucose, UA Negative Negative - 1999(110) ++++ mg/dL [facility] Interpretation and review of laboratory results Abnormal [facility] Ketones, UA Positive Negative - 160(16) ++++ mg/dL [facility] Comment on above: 15mg Leukocytes, UA Negative Negative - 500+++ Jose/mcL [facility] Nitrite, UA Negative Negative - Positive [facility] pH, UA 6 5 - 9 [facility] [employer] e Protein, UA Negative Negative - 1999(20) ++++ mg/dL [facility] Spec Grav, UA 1.03 1 - 1.03 [facility] Urobilinogen, UA 0.2 0.2 - 12 mg/dL [facility] IGP,APTIMA HPV,AGE GDLNon AGE GDLN ACOG TESTING Note . [facility] Comment on above: TESTS RESULT FLAG UN ITS REF RANGE LAB Clinician Provided Cytology Information Source.............Cervix No. of containers..01 ThinPrep Vial Age Algo ACOG Taya... -04 10 FLAG LEGEND: L-Low Normal,H-High Normal,LL-Alert Low,HH-Alert High <-Panic Low,>-Panic High,A-Abnormal,AA-Critical Abnormal Performed at: 01 =G [facility] [address] [place] [address] Rowena Portillo MD, IGP, RFX APTIMA HPV ASCU Note . [facility] Comment on above: TESTS RESULT FLAG UN ITS REF RANGE LAB DIAGNOSIS: 02 NEGATIVE FOR INTRAEPITHELIAL LESION OR MALIGNANCY. Specimen adequacy: 02 Satisfactory for evaluation. No endocervical component is identified. Performed by: 02 Yane Stern Tugboat Engineer ([facility]) . 02 Note: Note 02 [...] <-Panic Low,>-Panic High,A-Abnormal,AA-Critical Abnormal Performed at: [address] [address] Rowena Portillo MD, Performed at: = - [facility] [address] [id number] Machine Scallop Cutter: Rowena Portillo MD, Phone: [phone] Performed at: [facility] [id number] Machine Scallop Cutter: Rowena Portillo MD, Phone: [phone] SPATULA-ALONE CERVIX [facility] RECURRENT VAGINITIS (HTRX)on 07-29-2024 ATOPOBIUM VAGINAE 0 [facility] ATOPOBIUM VAGINAE Not detected [facility] BVAB 2,3 (BACTERIAL VAGINOSIS ASSOCIATED BACTERIA 2, 3); MOBILUNCUS SPP 0 [facility] BVAB 2,3 (BACTERIAL VAGINOSIS ASSOCIATED BACTERIA 2, 3); MOBILUNCUS SPP Not detected [facility] IWONA ALBICANS, PARAPSILOSIS, TROPICALIS 0 [facility] IWONA ALBICANS, PARAPSILOSIS, TROPICALIS Not detected [facility] IWONA GLABRATA 0 [facility] IWONA GLABRATA Not detected [facility] ealthcare IWONA KRUSEI 0 [facility] IWONA KRUSEI Not detected [facility] ltare CHLAMYDIA TRACHOMATIS 0 [facility] Healthcare CHLAMYDIA TRACHOMATIS Not detected [facility] Healthcare GARDNERELLA VAGINALIS 0 [facility] GARDNERELLA VAGINALIS Not detected [facility] Healthcare MEGASPHAERA (TYPES 1, 2) 0 [facility] Healthcare MEGASPHAERA (TYPES 1, 2) Not detected [facility] Healthcare MYCOPLASMA GENITALIUM 0 [facility] MYCOPLASMA GENITALIUM Not detected [facility] NEISSERIA GONORRHOEAE 0 [facility] NEISSERIA GONORRHOEAE Not detected [facility] TRICHOMONAS VAGINALIS 0 [facility] TRICHOMONAS VAGINALIS Not detected [facility] Healthcare [facility] Health[facility] e Urinalysis macro (dipstick) panel (U)on 06-20-2024 Bilirubin, UA Negative Negative - 4(70) +++ mg/dL [facility] Blood, UA Negative Negative - 50 Robbi/mcL [facility] Clarity, UA Clear [facility] re Color, UA Yellow [facility] Health[facility] e Glucose, UA Negative Negative - 1999(110) ++++ mg/dL [facility] Interpretation and review of laboratory results Abnormal [facility] Ketones, UA Negative Negative - 160(16) ++++ mg/dL [facility] Leukocytes, UA Negative Negative - 500+++ Jose/mcL [facility] Nitrite, UA Negative Negative - Positive [facility] pH, UA 5.5 5 - 9 [facility] e Protein, UA Negative Negative - 1999(20) ++++ mg/dL [facility] Spec Grav, UA 1.03 1 - 1.03 [facility] Urobilinogen, UA 1.0 0.2 - 12 mg/dL [facility] Health[facility] e ALL CBC WITH AUTO DIFFon BASOPHILS ABSOLUTE AUTO 0 [facility] Basophils/100 WBC (Bld) 0.1 % Low 0.2 - 2.0 % [facility] Eosinophils/100 WBC (Bld) 1 % 0.9 - 7.0 % [facility] Erythrocyte distribution width (RBC) [Ratio] 12.4 % 11.0 - 15.0 % [facility] Hematocrit (Bld) [Volume fraction] 36.7 % 36.0 - 48.0 % [facility] e Hemoglobin (Bld) [Mass/Vol] 12.4 g/dL 12.0 - 16.0 g/dL [facility] IMMATURE GRANULOCYTES ABS AUTO 0.03 [facility] Immature granulocytes/100 WBC (Bld) 0.4 % 0.0 - 0.5 % [facility] Interpretation and review of laboratory results Abnormal [facility] LYMPHOCYTES ABSOLUTE AUTO 0.9 Low [facility] Lymphocytes/100 WBC (Bld) 10.9 % Low 20.5 - 60.0 % [facility] MCH (RBC) [Entitic mass] 30.7 pg 26.7 - 34.0 pg [facility] MCHC (RBC) [Mass/Vol] 33.8 g/dL 29.9 - 35.2 g/dL [facility] MCV (RBC) [Entitic vol] 90.8 fL 81.0 - 99.0 fL [facility] MONOCYTES ABSOLUTE AUTO 0.5 [facility] Monocytes/100 WBC (Bld) 6 % 1.7 - 12.0 % [facility] NEUTROPHILS ABSOLUTE AUTO 6.8 High [facility] Neutrophils/100 WBC (Bld) 81.6 % High 43.0 - 75.0 % [facility] Platelet mean volume (Bld) [Entitic vol] 11.5 fL 9.5 - 13.5 fL [facility] EO # 0.1 [facility] TB PLT 136 Low [facility] e TB RBC 4.04 Low [facility] TBH WBC 8.3 [facility] e [facility] e HCG ( test) Ql (U)o n 06-15-2024 Interpretation and review of laboratory results Abnormal [facility] Preg Test, Ur Positive [facility] Health[facility] e Urinalysis macro (dipstick) panel (U)on 06-15-2024 Bilirubin, UA Negative Negative - 4(70) +++ mg/dL [facility] Blood, UA Negative Negative - 50 Robbi/mcL [facility] Clarity, UA Clear [facility] re Color, UA Yellow [facility] e Glucose, UA Negative Negative - 1999(110) ++++ mg/dL [facility] Interpretation and review of laboratory results Abnormal [facility] Ketones, UA Positive Negative - 160(16) ++++ mg/dL [facility] Comment on above: trace Leukocytes, UA Negative Negative - 500+++ Jose/mcL [facility] Nitrite, UA Negative Negative - Positive [facility] pH, UA 5.5 5 - 9 [facility] e Protein, UA Negative Negative - 1999(20) ++++ mg/dL [facility] Spec Grav, UA 1.030 1 - 1.03 [facility] Urobilinogen, UA 0.2 0.2 - 12 mg/dL [facility] Health[facility] e XR HAND LT MIN 3Von [...] by: IVET STAUFFER Date: 2020-04-06 21:56 Normal [facility] Vital Signs Date Time Vital Sign Value Performing Clinician Ailyn wany 10-04-2024 11:22-0500 Body weight 79.11 kg Zenon Antony DO Work Phone: [facility] 10-04-2024 11:22-0500 Diastolic blood pressure 60 mm[Hg] Zenon Antony DO Work Phone: [facility] 10-04-2024 11:22-0500 Systolic blood pressure 110 mm[Hg] Zenon Antony DO Work Phone: [facility] 09-18-2024 10:19-0500 Body weight 77.62 kg Jane LR Work Phone: [facility] 09-18-2024 10:19-0500 Diastolic blood pressure 60 mm[Hg] Jane LR Work Phone: [facility] 09-18-2024 10:19-0500 Systolic blood pressure 104 mm[Hg] Jane LR Work Phone: [facility] 08-28-2024 15:12-0500 Body weight 80.92 kg Zenon Antony DO Work Phone: [facility] 08-28-2024 15:12-0500 Diastolic blood pressure 54 mm[Hg] Zenon Antony DO Work Phone: [facility] 08-28-2024 15:12-0500 Systolic blood pressure 108 mm[Hg] Zenon Antony DO Work Phone: [facility] 07-27-2024 15:36-0500 Body weight 77.11 kg Jane LR Work Phone: [facility] 07-27-2024 15:36-0500 Diastolic blood pressure 64 mm[Hg] Jane LR Work Phone: [facility] 07-27-2024 15:36-0500 Systolic blood pressure 106 mm[Hg] Jane LR Work Phone: [facility] 06-20-2024 11:01-0400 Body weight 76.2 kg Zenon Antony DO Work Phone: [facility] 06-20-2024 11:01-0400 Diastolic blood pressure 70 mm[Hg] Zenon Antony DO Work Phone: [facility] 06-20-2024 11:01-0400 Systolic blood pressure 108 mm[Hg] Zenon Antony DO Work Phone: [facility] 06-15-2024 13:41-0400 Body weight 74.84 kg [facility] 06-15-2024 13:41-0400 Diastolic blood pressure 64 mm[Hg] [facility] 06-15-2024 13:41-0400 Systolic blood pressure 102 mm[Hg] Noms Nurse [facility] Healthcare Encounters Encounter Date Encounter Type Care Provider Facility Start: 10-13-2024 End: 10-13-2024 Clinisync Result Encounter Zenon Antony DO Work Phone: [facility] External Department Unsolicited Start: 10-13-2024 End: 10-13-2024 Clinisync Result Encounter Zenon Antony DO Work Phone: [facility] External Department Unsolicited Start: 10-12-2024 End: 10-12-2024 ambulatory [facility] Start: 10-06-2024 End: 10-06-2024 Orders Only Alise Zimmerman RN Maternal- Medic ine at [facility] Comment on above: Poor growth af fecting management of mother in third trimester, single or unspecified fetus (Primary Dx) Start: 10-04-2024 End: 10-04-2024 Office outpatient visit 15 minutes Zenon Antony DO Work Phone: [facility] Comment on above: 33 weeks [...] Result Encounter Zenon Antony DO Work Phone: [facility] External Department Unsolicited Start: 09-04-2024 End: 09-04-2024 Clinisync Result Encounter Zenon Antony DO Work Phone: [facility] External Department Unsolicited Start: 09-03-2024 End: 09-03-2024 ambulatory [facility] Start: 08-28-2024 End: 08-28-2024 Office outpatient visit 15 minutes Zenon Antony DO Work Phone: [facility] Comment on above: Diabetes mellitus sc reening; 28 weeks gestation of ; Third trimester Start: 08-28-2024 End: 08-28-2024 ambulatory ZENON ANTONY Not Available Start: 08-28-2024 End: 08-28-2024 [...] Start: 07-27-2024 End: 07-27-2024 Bamboo flowsheet Jane Grace PA Work Phone: [facility] Start: 07-27-2024 End: 08-07-2024 Bamboo flowsheet Jane Grace PA Work Phone: [facility] Start: 07-27-2024 End: 08-07-2024 Clinisync Result Encounter Jane LR Work Phone: [facility] External Department Unsolicited Start: 07-27-2024 End: 07-29-2024 External Result Encounter Jane Ciara PA Work Phone: [facility] External Department Unsolicited Start: [...] End: 04-06-2020 Patient encounter procedure SHIRA ARMSTRONG Facility:[facility] Procedures Date Procedure Procedure Detail Performing Clinician Start: 10-13-2024 OB BPP W NON-STRESS Zenon Antony DO Work Phone: Start: 10-04-2024 Urnls dip stick/tabl et rgnt non-auto w/o micrscp Zenon Antony DO Work Phone: Start: 09-18-2024 Urnls dip stick/tabl et rgnt non-auto w/o micrscp Jane LR Work Phone: Start: 09-04-2024 ALL CBC WITH [...] 06-19-2024 ALL CBC WITH AUTO DIFF Zenon Atnony DO Work Phone: Start: 06-15-2024 End: 06-15-2024 Urnls dip stick/tablet rgnt non-auto w/o micrscp Zenon Antony DO Work Phone: Plan of Treatment Date Care Activity Detail Author Start: 09-03-2025 Tobacco Screening Tobacco Screening [facility] Start: 11-16-2024 End: 11-16-2024 Patient encounter procedure 11/16/2024 11:30 AM EDT Routine [facility] [address] [place] [id number] Jane Stewart PA [address] [place] [address] [facility] Start: 11-09-2024 End: 11-09-2024 Patient encounter procedure 11/09/2024 10:50 AM EST Routine [facility] [address] [place] [id number] Zenon Hardy, DO [address] [place] [address] [facility] Start: 11-03-2024 End: 10-06-2025 US MFM with or without consult US MFM with or without consult Imaging Routine Poor growth affecting management of mother in third trimester, single or unspecified fetus Expected: 11/03/2024 (Approximate), Expires: 10/06/2025 [facility] Work Phone: Comment on above: Expected: 11/03/2024 (Approximate), Expires: 10/06/2025 Start: 11-02-2024 End: 11-02-2024 Patient encounter procedure 11/02/2024 11:20 AM EST Routine [facility] [address] [place] [phone] Jane Stewart PA [address] [place] [address] [place] [address] [facility] Start: 10-26-2024 End: 10-26-2024 Patient encounter procedure 10/26/2024 10:20 AM EST Routine [facility] [address] [place] [address] Zenon Hardy, DO [address] [place] [address] [facility] Start: 10-19-2024 End: 10-19-2024 Patient encounter procedure 10/19/2024 1:30 PM EST Routine [facility] [address] [place] [phone] Jane Stewart PA [address] [place] [address] [facility] Start: 10-12-2024 End: 10-12-2024 Patient encounter procedure 10/12/2024 1:00 PM EST Appointment [facility] [address] [place] [address] [facility] [place] Start: 10-04-2024 End: 10-04-2024 Patient encounter procedure 10/04/2024 11:30 AM EST Routine [facility] [address] [place] [phone] Zenon Hardy DO [address] [place] [address] [facility] Start: 10-04-2024 End: 10-04-2024 Professional / ancillary services management 10/04/2024 11:00 AM EST Ancillary Procedure [facility] [address] [place] [address] [facility] Start: 09-18-2024 End: 09-18-2025 [...] PM EST Routine [facility] [address] [place] [phone] Jane Stewart PA [address] [place] [address] Arrived [facility] Comment on above: Arrived Start: 07-18-2024 End: 07-18-2024 Patient encounter procedure 07/18/2024 10:10 AM EST Routine [facility] [address] [place] [phone] Zenon Hardy DO [address] [place] [address] [facility] Start: 07-04-2024 End: 07-04-2024 Professional / ancillary services management 07/04/2024 2:00 PM EDT Ancillary Procedure [facility] [address] [place] [phone] [facility] Start: 06-20-2024 End: 06-20-2025 US for US OB ANATOMY SINGLE W US OB CERVICAL LENGTH Imaging Routine Screening, , for anatomic survey Expected: 06/20/2024 (Approximate), Expires: 06/20/2025 [facility] Healthcare Work Phone: Comment on above: Expected: 06/20/2024 (Approximate), Expires: 06/20/2025 Start: 06-20-2024 End: 06-20-2024 Patient encounter procedure [facility] Comment on above: Arrived Start: 06-15-2024 End: 06-15-2025 ABO/Rh ABO/Rh Lab Routine Missed menses , unspecified gestational age Expected: 06/15/2024 (Approximate), Expires: 06/15/2025 [facility] Healthcare Comment on above: Expected: 06/15/2024 (Approximate), Expires: 06/15/2025 Start: 06-15-2024 End: 06-15-2025 Alpha fetoprotein, maternal Alpha fetoprotein, maternal Lab Routine Second trimester Expected: 06/15/2024 (Approximate), Expires: 06/15/2025 [facility] Healthcare Comment on above: Expected: 06/15/2024 (Approximate), Expires: 06/15/2025 Start: 06-15-2024 End: 06-15-2025 Blood type and Indirect antibody screen panel - Blood Type and screen Lab Routine Missed menses , unspecified gestational age Expected: 06/15/2024 (Approximate), Expires: 06/15/2025 [facility] Healthcare Work Phone: Comment on above: Expected: 06/15/2024 (Approximate), Expires: 06/15/2025 Start: 06-15-2024 End: 06-15-2025 Drugs of abuse panel - Urine by Screen method Rapid drug screen, urine Lab Routine , unspecified gestational age Encounter for supervision of normal first in first trimester Expected: 06/15/2024 (Approximate), Expires: 06/15/2025 [facility] Healthcare Comment on above: Expected: 06/15/2024 (Approximate), Expires: 06/15/2025 Start: 06-15-2024 End: 06-15-2025 US for US OB > 14 WEEKS Imaging Routine Missed menses Expected: 06/15/2024 (Approximate), Expires: 06/15/2025 [facility] Comment on above: Expected: 06/15/2024 (Approximate), Expires: 06/15/2025 Start: 05-07-2024 Influenza vaccination [facility] Start: 06-08-2022 DTaP,Tdap and Td Vaccines (2 - Td or Tdap) DTaP,Tdap and Td Vaccines (2 - Td or Tdap) [facility] Start: 02-01-2020 Screening for malign ant neoplasm of cervix Pap Smear [facility] Start: 2017 Adult BMI Screening Adult BMI Screen ing [facility] Start: 2011 Depression Screening Depression Scre ening [facility] Start: 1999 Tobacco Counseling Tobacco Counselin [facility] Bacteria identified in Urine by Culture Urine culture Microbiology Routine Missed menses Ordered: 06/15/2024 [facility] Comment on above: Ordered: 06/15/2024 CBC W Auto Different ial panel - Blood CBC and differential Lab Routine Missed menses , unspecified gestational age Ordered: 06/15/2024 [facility] Comment on above: Ordered: 06/15/2024 CHLAMYDIA TRACHOMATI S (GENITO/STI) CHLAMYDIA TRACHOMATIS (GENITO/STI) Lab Routine Second trimester 22 weeks gestation of Ordered: 07/27/2024 [facility] Comment on above: Ordered: 07/27/2024 Cytology Cervical or vaginal smear or scraping study Pap Smear Pathology and Cytology Routine Second trimester 22 weeks gestation of Ordered: 07/27/2024 [facility] Work Phone: Comment on above: Ordered: 07/27/2024 Hemoglobin A1c/Hemoglobin.total in Blood Hemoglobin A1c Lab Routine Missed menses , unspecified gestational age Ordered: 06/15/2024 [facility] Comment on above: Ordered: 06/15/2024 Hepatitis B virus surface Ag [Presence] in Serum or Plasma by Immunoassay Hepatitis B surface antigen Lab Routine Missed menses , unspecified gestational age Ordered: 06/15/2024 [facility] Comment on above: Ordered: 06/15/2024 Hepatitis C virus Ab [Presence] in Serum or Plasma by Immunoassay Hepatitis C antibody Lab Routine Missed menses , unspecified gestational age Ordered: 06/15/2024 [facility] Comment on above: Ordered: 06/15/2024 HIV-1/HIV-2 antigen/antibody combination immunoassay HIV-1 and HIV-2 antibodies Lab Routine Missed menses , unspecified gestational age Ordered: 06/15/2024 [facility] Comment on above: Ordered: 06/15/2024 Neisseria gonorrhoea e DNA [Presence] in Unspecified specimen by SEAN with probe detection Neisseria gonorrhea DNA probe, direct Lab Routine Second trimester 22 weeks gestation of Ordered: 07/27/2024 [facility] Comment on above: Ordered: 07/27/2024 Reagin Ab [Presence] in Serum by RPR RPR Lab Routine Missed menses , unspecified gestational age Ordered: 06/15/2024 [facility] Comment on above: Ordered: 06/15/2024 Rubella antibody, IgG Rubella an tibody, IgG Lab Routine Missed menses , unspecified gestational age Ordered: 06/15/2024 [facility] Comment on above: Ordered: 06/15/2024 SURESWAB(R) ADVANCED VAGINITIS PLUS, TMA SURESWAB(R) ADVANCED VAGINITIS PLUS, TMA Pathology and Cytology Routine Second trimester 22 weeks gestation of Ordered: 07/27/2024 [facility] Comment on above: Ordered: 07/27/2024 Payers Date Payer Category Payer Medicaid [id number] 2022 Medicaid [id number] 1999 Unknown [id number] 2.16.84 [id number] 1999 Unknown [id number] 2.16.84 [id number] 1999 Unknown [id number] 2.16.84 [id number] 1999 Unknown [id number] 2.16.84 [id number] 1999 Unknown [id number] 2.16.84 [id number] 1999 Unknown [id number] 2.16.84 [id number] 1999 Unknown [id number] 2.16.84 [id number] 1999 Unknown [id number] 2.16.84 [id number] 1999 Unknown [id number] 2.16. [id number] 1959 Unknown [id number] Social History Date Type Detail Facility Tobacco smoking stat [facility] Tobacco smoking consumption unknown [facility] Start: 02-23-2024 [facility] Start: 1999 Sex assigned at Female [facility] Start: 06-08-2024 Gender identity Identifies as female gender (finding) [facility] Start: 10-17-2020 End: 09-03-2024 Sexual orientation Not on file [facility] Start: 09-26-2008 Tobacco smoking stat [facility] Smokes tobacco daily [facility] Start: 09-26-2008 End: 05-07-2018 History of tobacco use Cigarette Smoker [facility] Start: 11-13-2018 End: 10-17-2020 Cigarettes smoked current (pack per day) - Reported 1 [facility] Start: 11-13-2018 Tobacco use and exposure Smokeless tobacco non-user [facility] Start: 09-03-2024 Alcoholic beverage intake Current non-drinker of alcohol (finding) [facility] Are you worried or concerned that in the next two months you may not have stable housing that you own, rent or stay in as a part of a household? No [facility] Start: 1999 Sex assigned at Not on file [facility] Start: 04-11-2015 Sex Female (finding) [facility] Clinical Notes 06-15-2024 to 10-04-2024 Colleen Choi LPN - 10/04/2024 11:30 AM ADELINE Haider - 09/18/2024 10:20 AM Chilo Hernandez LPN - 08/28/2024 2:50 PM ADELINE Haider - 07/27/2024 3:20 PM EST Note Date & Type Note Facility 10-04-2024 History of Presen t illness Narrative Reason for Appointment: Patient ID: Sia Lay is a 24 y.o. female who presents [...] nursing note reviewed. Exam conducted with a senior asset manager present. Vitals: There is no height or [...] Zenon Hardy DO documented in this encounter [facility] 09-18-2024 History of Presen t illness Narrative Reason for Appointment: Patient ID: Sia Lay is a 24 y.o. female who presents [...] of: ADELINE Ward documented in this encounter [facility] 08-28-2024 History of Presen t illness Narrative Reason for Appointment: Patient ID: Sia Lay is a 24 y.o. female who presents [...] nursing note reviewed. Exam conducted with a senior asset manager present. Vitals: There is no height or [...] Zenon Hardy DO documented in this encounter [facility] 07-27-2024 History of Presen t illness Narrative Reason for Appointment: Patient ID: Sia Lay is a 24 y.o. female who presents [...] obtained without difficulty and patient was given [facility] order to have obtained. Orders Placed This Encounter Procedures CHLAMYDIA TRACHOMATIS (GENITO/STI) Neisseria gonorrhea DNA probe, direct Follow Up: Patient is to return to our office in 4 weeks for routine OB appointment Documented by ADELINE Ward on behalf of: ADELINE Ward Reason for Appointment: Patient ID: Sia Lay is a 24 y.o. female who presents [...] nursing note reviewed. Exam conducted with a senior asset manager present. Vitals: There is no height or [...] obtained without difficulty and patient was given [facility] order to have obtained. Follow Up: Patient is to return to our office in 4 weeks for routine OB appointment Documented by Consuelo Hernandez LPN on behalf of: ADELINE Ward documented in this encounter [facility] 06-20-2024 History of Presen t illness Narrative Reason for Appointment: Patient ID: Sia Lay is a 24 y.o. female who presents [...] nursing note reviewed. Exam conducted with a senior asset manager present. Vitals: There is no height or [...] Jane Stewart PA-C documented in this encounter [facility] 06-15-2024 History of Presen t illness Narrative Reason for Appointment: Patient ID: Sia Lay is a 24 y.o. female who presents [...] or undercooked meat, and stay away from [facility]. Patient has also been advised [...] by: Nahed Louie documented in this encounter [facility] Healthcare Evaluation note Diagnosis Missed menses [...] unspecified fetus- Primary documented in this encounter [facility] filed[facility]ed in this encounter [facility] Summary Purpose Family History No Family History Records FoundNo Family History Records FoundNo Family History Records FoundNo Family History Records Found Advance Directives No Advanced Directives Records Found Date Activated Date Inactivated Comments 05/27/2018 6:21 PM 05/27/2018 8:31 PM Additional Source Comments INFORMATION SOURCE (unrecogn ized section and content) DATE CREATED AUTHOR 04/09/2020 [facility] DATE CREATED AUTHOR AUTHOR'S ORGANIZ ATION 09/04/2024 [facility] DATE CREATED AUTHOR AUTHOR'S ORGANIZ ATION 10/06/2024 [facility] EPIC DATE CREATED AUTHOR AUTHOR'S ORGANIZ ATION 10/14/2024 [facility] Reason for Visit (unrecogniz ed section and content) Reason Comments Initial Visit Reason Comments Routine Visit Care Teams (unrecognized sec tion and content) Gas Check Pad Maker Relationship Specialty Start Date End Date Swapna Omalley NP [address] [place] [address] PCP - [facility] 12/06/23 Gas Check Pad Maker Relationship Specialty Start Date End Date Swapna Omalley NP [address] [place] [address] PCP - [facility] 12/06/23 Gas Check Pad Maker Relationship Specialty Start Date End Date Swapna Omalley NP [address] [place] [address] PCP - [facility] 12/06/23 Gas Check Pad Maker Relationship Specialty Start Date End Date Swapna Omalley NP [address] [place] [address] PCP - [facility] 12/06/23 Gas Check Pad Maker Relationship Specialty Start Date End Date Swapna Omalley NP [address] [facility] [place] [address] PCP - NOMWillian Perez [facility] 12/06/23 Gas Check Pad Maker Relationship Specialty Start Date End Date Swapna Omalley NP [address] [facility] [place] [address] PCP - [facility]ian Perez [facility] 12/06/23 Gas Check Pad Maker Relationship Specialty Start Date End Date [facility] [address] [place] PCP - General Family Medicine 11/13/18 Gas Check Pad Maker Relationship Specialty Start Date End Date Swapna Omalley NP [address] [facility] [place] [address] PCP Josey Perez [facility] 12/06/23 FOR RECORDS PERTAINING TO PATIENTS [...] BE BASED ON THE PRIMARY CLINICAL RECORDS. [facility] [employer] [facility] provides no warranty or guarantee of the accuracy or completeness of information in this document.
[2024-10-17 08:35] VITALS: BP 104/64; PULSE 115
== END 2024-10-17 09:00 | disposition home or self-care (01) ==
LOC: FBCO 01:08 → FBC 08:28
PROVIDERS: Visit Provider Obstetrics & Gynecology
DX: O36.5930 Maternal care for other known or suspected poor fetal growth, third trimester, not applicable or unspecified (principal)
CPT/HCPCS: 59025

== ENCOUNTER 2024-10-24 20:20 | Outpatient (REF) | payer MEDICAID, SELFPAY ==
--- OUTSIDE RECORDS SUMMARY | 2024-10-24 20:23 | XMS_ITS | CCD ---
Author Organization [facility] Care Team Providers Care Global Account Executive Name Role Phone SHIRA ARMSTRONG Admitting Unavailable SHIRA ARMSTRONG Attending Unavailable JODEE RUBALCAVA Consulting Unavailable [facility], DOCTOR Primary Care Unavailable IVET STAUFFER Consulting Unavailable Shahram BUILDING CONSTRUCTION IRONWORKER, Swapna Bowser Unavailable DAVID SOLO Admitting Unavailable DAVDI SOLO Attending Unavailable SERVICES, [facility] Unava ilable JANE STEWART Referring Unavailable ZENON HARDY Attending Unavailable ZENON HARDY Attending Unavailable JANE STEWART Attending Unavailable ZENON HARDY Attending Unavailable JANE STEWART Attending Unavailable Services, [facility] Care Provider ZENON HARDY Referring Unavailable SERVICES, [facility] Unava ilable Allergies Allergy Classification Reported Allergen(s) Allergy Type Date of Onset Reaction(s) Facility (3 sources) Penicillins; Translations: [PENICILLINS] Drug allergy (disorder) 7 [facility] Repository (20 sources) Penicillins Propensity to adverse reactions 7 [facility] (1 source) Penicillins Propensity to adverse reactions to drug 7 [facility] Work Phone: Medications Current Medications Medication [...] OB BPP W NON-STRESS on 10-13-[address] [address] Ultrasound Report Signed Patient: SIA LAY MR#: [id number] : 2000 Acct:[id number] Age/Sex: 24 / F ADM Date: 10/13/24 Loc: [facility] 250-[address]: Zenon Hardy D.O. Ordering Physician: Zenon Hardy D.O. Date of Service: 10/13/24 Procedure(s): US OB BPP w non-stress Accession Number(s): [id number] cc: Zenon Hardy D.O.; Physician,Non-Staff Yessica The [address] [address] Patient Name: SIA LAY MRN: [facility]:[id number] date: 2000 Sex: F Assigned Patient Location: [facility] Current Patient Location: [facility] Accession/Order Number: [id number] Exam Date: 10/13/2024 09:05 Report Date: 10/13/2024 [...] Signed By: 10/13/24 0951 DD/ 0949 TD/TT: Operations Consultant: [facility] Radiology, Radiologist, MD - 10/13/2024 [place] [address] Ultrasound Report Signed Patient: SIA LAY MR#: [id number] : 2000 Acct:[id number] Age/Sex: 24 / F ADM Date: 10/13/24 Loc: [facility] 250-[address]: Zenon Haryd D.O. Ordering Physician: Zenon Hardy D.O. Date of Service: 10/13/24 Procedure(s): US OB BPP w non-stress Accession Number(s): [id number] cc: Zenon Hardy D.O.; Physician,Non-Staff Yess[place] [address] Patient Name: SIA LAY MRN: [facility]:[id number] date: 2000 Sex: F Assigned Patient Location: [facility] Current Patient Location: [facility] Accession/Order Number: [id number] Exam Date: 10/13/2024 09:05 Report Date: 10/13/2024 [...] Duncan M.D. Signed By: 10/13/2451 DD/ TD/TT: Operations Consultant: [facility] Radiology Study observation (narrative) [facility] US OB BPP W NON-STRESS Ordered By: Radiologist Radiology on 10-13-2024 [facility] Work Phone: US OB FOLLOW UP TRANSABDOMIN [...] 1924 gm / 4 lbs, 3 oz (1032-2495 gm) [place] Normal: 2346 cm (1230-8874 gm) [place] Wt%: 1% for 33.9 wks [...] report is generated using voice recognition reporting ([employer]). On occasion [email or web address] erroneously drops words from the report or [...] UA Positive Negative - 4(70) +++ mg/dL [facility] Comment on above: small Blood, UA Negative Negative - 50 Robbi/mcL [facility] Clarity, UA Clear [facility] Color, UA Lala [facility] Glucose, UA Negative Negative - 2000(110) ++++ mg/dL [facility] Interpretation and review of laboratory results Abnormal [facility] Ketones, UA Negative Negative - 160(16) ++++ mg/dL [facility] Leukocytes, UA Negative Negative - 500+++ Jose/mcL [facility] Nitrite, UA Positive Negative - Positive [facility] pH, UA 6 5 - 9 [facility] Health[facility] e Protein, UA Positive Negative - 1999(20) ++++ mg/dL [facility] Comment on above: 30 Spec Grav, UA 1.03 1 - 1.03 [facility] Urobilinogen, UA 0.2 0.2 - 12 mg/dL [facility] Urinalysis macro (dipstick) panel (U)on 09-18-2024 Bilirubin, UA Positive Negative - 4(70) +++ mg/dL [facility] Comment on above: small Blood, UA Negative Negative - 50 Robbi/mcL [facility] Clarity, UA Clear [facility] re Color, UA Lala [facility] Glucose, UA Negative Negative - 1999(110) ++++ mg/dL [facility] Interpretation and review of laboratory results Abnormal [facility] Ketones, UA Positive Negative - 160(16) ++++ mg/dL [facility] Comment on above: trace Leukocytes, UA Positive Negative - 500+++ Jose/mcL [facility] Comment on above: small Nitrite, UA Positive Negative - Positive [facility] pH, UA 5.5 5 - 9 [facility] Protein, UA Positive Negative - 1999(20) ++++ mg/dL [facility] Comment on above: 100 Spec Grav, UA 1.03 1 - 1.03 [facility] Urobilinogen, UA 1.0 0.2 - 12 mg/dL [facility] e ALL CBC WITH AUTO DIFFon BASOPHILS ABSOLUTE AUTO 0 [facility] Basophils/100 WBC (Bld) 0.2 % 0.2 - 2.0 % [facility] Eosinophils/100 WBC (Bld) 1 % 0.9 - 7.0 % [facility] Erythrocyte distribution width (RBC) [Ratio] 12.3 % 11.0 - 15.0 % [facility] Hematocrit (Bld) [Volume fraction] 35.9 % Low 36.0 - 48.0 % [facility] Hem[facility] (Bld) [Mass/Vol] 11.7 g/dL Low 12.0 - 16.0 g/dL [facility] IMMATURE GRANULOCYTES ABS AUTO 0.03 [facility] Immature granulocytes/100 WBC (Bld) 0.3 % 0.0 - 0.5 % [facility] Interpretation and review of laboratory results Abnormal [facility] LYMPHOCYTES ABSOLUTE AUTO 1.1 Low [facility] Lymphocytes/100 WBC (Bld) 12.7 % Low 20.5 - 60.0 % [facility] MCH (RBC) [Entitic mass] 30.5 pg 26.7 - 34.0 pg [facility] MCHC (RBC) [Mass/Vol] 32.6 g/dL 29.9 - 35.2 g/dL [facility] MCV (RBC) [Entitic vol] 93.7 fL 81.0 - 99.0 fL [facility] MONOCYTES ABSOLUTE AUTO 0.6 [facility] Monocytes/100 WBC (Bld) 6.6 % 1.7 - 12.0 % [facility] NEUTROPHILS ABSOLUTE AUTO 7 High [facility] Neutrophils/100 WBC (Bld) 79.2 % High 43.0 - 75.0 % [facility] Platelet mean volume (Bld) [Entitic vol] 12.1 fL 9.5 - 13.5 fL [facility] are TBH EO # 0.1 [facility] TB PLT 137 Low [facility] TB RBC 3.83 Low [facility] TB[facility] WBC 8.8 [facility] Healthcar e DRUG SCREEN, URINEon 024 AMPHETAMINE/METHAMP Negative Normal NEG [facility] Comment on above: Result Comment: AMPH /METH screening cut off = 1000 ng/mL Performed By: #### D MONTENEGRO #### [facility] ([id number]) [address] [place] [address] BARBITURATES Negative Normal NEG [facility] Comment on above: Result Comment: Mackenzie iturates screening cut off value = 200 ng/mL Performed By: #### D MONTENEGRO #### [facility] ([id number]) [address] [place] [address] BENZODIAZEPINES Negative Normal NEG [facility] Comment on above: Result Comment: Horacio odiazepines screening cut off value = 200 ng/mL Performed By: #### D MONTENEGRO #### [facility] ([id number]) [address] [place] [address]354 CANNABINOIDS Negative Normal NEG [facility] Comment on above: Result Comment: Ryan abinoids/THC screening cut off value = 50 ng/mL Performed By: #### D MONTENEGRO #### [facility] ([id number]) [address] [place] [address] COCAINE METABOLITE Negative Normal NEG [facility] Comment on above: Result Comment: Coca ine screening cut off value = 300 ng/mL Performed By: #### D MONTENEGRO #### [facility] ([id number]) [address] [place] [address] ECSTASY Negative Normal NEG [facility] Comment on above: Result Comment: Ecst asy screening cut off value = 500 ng/mL This report is intended for use in clinical monitoring or management of patients. Performed By: #### D MONTENEGRO #### [facility] ([id number]) [address] [place] [address] METHADONE Negative Normal [facility] Comment on above: Result Comment: Meth adone screening cut off value = 300 ng/mL. Performed By: #### D MONTENEGRO #### [facility] ([id number]) [address] [place] [address] OPIATES Negative Normal NEG [facility] Comment on above: Result Comment: Opia taya screening cut off value = 300 ng/mL NOTE: This test is used for the detection of codeine, hydrocodone (>1000 ng/mL), morphine and hydromorphone (>900 ng/mL) in urine. Performed By: #### D MONTENEGRO #### [facility] ([id number]) [address] [place] [address] [place] [address] OXYCODONE Negative Normal NEG [facility] Comment on above: Result Comment: Oxyc odone screening cut off value = 300 ng/mL NOTE: This test is used for the detection of oxycodone and oxymorphone in urine. Performed By: #### D MONTENEGRO #### [facility] ([id number]) [address] [place] [address] [place] [address] PHENCYCLIDINE Negative Normal NEG [facility] Comment on above: Result Comment: Phen cyclidine screening cut off value = 25 ng/mL Performed By: #### D MONTENEGRO #### [facility] ([id number]) [address] [place] [address] [place] [address] URINALYSISon 09-03-2024 Bilirubin Ql (U) Negative Normal NEG [facility] Comment on above: Performed By: #### U A #### [facility] ([id number]) [address] [place] [address] [place] [address] BLOOD/HGB Trace Abnormal NEG [facility] Comment on above: Performed By: #### U A #### [facility] ([id number]) [address] [place] [address] [place] [address] Color (U) YELLOW Normal YELLOW [facility] Comment on above: Performed By: #### U A #### [facility] ([id number]) [address] [place] [address] [place] [address] Glucose Ql (U) Negative Normal NEG [facility] Comment on above: Performed By: #### U A #### [facility] ([id number]) [address] [place] [address] [place] [address] Ketones Ql (U) Negative Normal NEG [facility] Comment on above: Performed By: #### U A #### [facility] ([id number]) [address] [place] [address] Leukocyte esterase Test strip Ql (U) Negative Normal NEG [facility] Comment on above: Performed By: #### U A #### [facility] ([id number]) [address] [place] [address] [place] [address] Nitrite Ql (U) Negative Normal NEG [facility] Comment on above: Performed By: #### U A #### [facility] ([id number]) [address] [place] [address] pH (U) 6.0 [pH] Normal 5.0-8.5 [facility] Comment on above: Performed By: #### U A #### [facility] ([id number]) [address] [place] [address] Protein Ql (U) Trace Abnormal NEG [facility] Comment on above: Performed By: #### U A #### [facility] ([id number]) [address] [place] [address] R.B.CELLS 1 /hpf Normal 0-5 [facility] Comment on above: Performed By: #### U A #### [facility] ([id number]) [address] [place] [address] Specific gravity (U) [Rel density] >1.030 Normal 1.003-1.035 [facility] Comment on above: Performed By: #### U A #### [facility] ([id number]) [address] [place] [address] SQUAMOUS EPITHELIUM 9 /hpf High 0-5 [facility] Comment on above: Performed By: #### U A #### [facility] ([id number]) [address] [place] [address] [place] [address] TURBIDITY CLEAR Normal CLEAR [facility] Comment on above: Performed By: #### U A #### [facility] ([id number]) [address] [place] [address] Urobilinogen Qn (U) 0.2 {Nathanael'U}/dL Normal <1.1 [facility] Comment on above: Performed By: #### U A #### [facility] ([id number]) [address] [facility] [facility] [place] [address] W.B.CELLS 0 /hpf Normal 0-5 [facility] Comment on above: Performed By: #### U A #### [facility] ([id number]) [address] [facility] [place] [address] Urinalysis macro (dipstick) panel (U)on 08-28-2024 Bilirubin, UA Negative Negative - 4(70) +++ mg/dL [facility] Blood, UA Negative Negative - 50 Robbi/mcL [facility] Clarity, UA Clear [facility] re Color, UA Yellow [facility] Glucose, UA Negative Negative - 1999(110) ++++ mg/dL [facility] Interpretation and review of laboratory results Abnormal [facility] Ketones, UA Positive Negative - 160(16) ++++ mg/dL [facility] Comment on above: 15mg Leukocytes, UA Negative Negative - 500+++ Jose/mcL [facility] Nitrite, UA Negative Negative - Positive [facility] pH, UA 6 5 - 9 [facility] [employer] Protein, UA Negative Negative - 1999(20) ++++ mg/dL [facility] Spec Grav, UA 1.03 1 - 1.03 [facility] Urobilinogen, UA 0.2 0.2 - 12 mg/dL [facility] IGP,APTIMA HPV,AGE GDLNon AGE GDLN ACOG TESTING Note . [facility] Comment on above: TESTS RESULT FLAG UN ITS REF RANGE LAB Clinician Provided Cytology Information Source.............Cervix No. of containers..01 ThinPrep Vial Age Algo ACOG Taya... -04 10 FLAG LEGEND: L-Low Normal,H-High Normal,LL-Alert Low,HH-Alert High <-Panic Low,>-Panic High,A-Abnormal,AA-Critical Abnormal Performed at: 01 =G [facility] [address] [place] [address] Rowena Portillo MD, IGP, RFX APTIMA HPV ASCU Note . [facility] Comment on above: TESTS RESULT FLAG UN ITS REF RANGE LAB DIAGNOSIS: 02 NEGATIVE FOR INTRAEPITHELIAL LESION OR MALIGNANCY. Specimen adequacy: 02 Satisfactory for evaluation. No endocervical component is identified. Performed by: 02 Yane Stern Electrical Electronics Engineer ([facility]) . 02 Note: Note 02 The Pap [...] <-Panic Low,>-Panic High,A-Abnormal,AA-Critical Abnormal Performed at: [address] [address] Rowena Portillo MD, Performed at: = - [facility] [address] [id number] Costume Maker: Rowena Portillo MD, Phone: [phone] Performed at: [facility] [id number] Costume Maker: Rowena Portillo MD, Phone: [phone] SPATULA-ALONE CERVIX [facility] RECURRENT VAGINITIS (HTRX)on 07-29-2024 ATOPOBIUM VAGINAE 0 [facility] ATOPOBIUM VAGINAE Not detected [facility] BVAB 2,3 (BACTERIAL VAGINOSIS ASSOCIATED BACTERIA 2, 3); MOBILUNCUS SPP 0 [facility] BVAB 2,3 (BACTERIAL VAGINOSIS ASSOCIATED BACTERIA 2, 3); MOBILUNCUS SPP Not detected [facility] IWONA ALBICANS, PARAPSILOSIS, TROPICALIS 0 [facility] IWONA ALBICANS, PARAPSILOSIS, TROPICALIS Not detected [facility] IWONA GLABRATA 0 [facility] IWONA GLABRATA Not detected [facility] IWONA KRUSEI 0 [facility] IWONA KRUSEI Not detected [facility] ltare CHLAMYDIA TRACHOMATIS 0 [facility] CHLAMYDIA TRACHOMATIS Not detected [facility] Healthcare GARDNERELLA VAGINALIS 0 [facility] GARDNERELLA VAGINALIS Not detected [facility] Healthcare MEGASPHAERA (TYPES 1, 2) 0 [facility] Healthcare MEGASPHAERA (TYPES 1, 2) Not detected [facility] Healthcare MYCOPLASMA GENITALIUM 0 [facility] MYCOPLASMA GENITALIUM Not detected [facility] NEISSERIA GONORRHOEAE 0 [facility] NEISSERIA GONORRHOEAE Not detected [facility] TRICHOMONAS VAGINALIS 0 [facility] TRICHOMONAS VAGINALIS Not detected [facility] Healthcare [facility] Health[facility] e Urinalysis macro (dipstick) panel (U)on 06-20-2024 Bilirubin, UA Negative Negative - 4(70) +++ mg/dL [facility] Blood, UA Negative Negative - 50 Robbi/mcL [facility] Clarity, UA Clear [facility] re Color, UA Yellow [facility] Glucose, UA Negative Negative - 1999(110) ++++ mg/dL [facility] Interpretation and review of laboratory results Abnormal [facility] Ketones, UA Negative Negative - 160(16) ++++ mg/dL [facility] Leukocytes, UA Negative Negative - 500+++ Jose/mcL [facility] Nitrite, UA Negative Negative - Positive [facility] pH, UA 5.5 5 - 9 [facility] e Protein, UA Negative Negative - 1999(20) ++++ mg/dL [facility] Spec Grav, UA 1.03 1 - 1.03 [facility] Urobilinogen, UA 1.0 0.2 - 12 mg/dL [facility] Health[facility] e ALL CBC WITH AUTO DIFFon BASOPHILS ABSOLUTE AUTO 0 [facility] Basophils/100 WBC (Bld) 0.1 % Low 0.2 - 2.0 % [facility] Eosinophils/100 WBC (Bld) 1 % 0.9 - 7.0 % [facility] Erythrocyte distribution width (RBC) [Ratio] 12.4 % 11.0 - 15.0 % [facility] Hematocrit (Bld) [Volume fraction] 36.7 % 36.0 - 48.0 % [facility] e Hemoglobin (Bld) [Mass/Vol] 12.4 g/dL 12.0 - 16.0 g/dL [facility] IMMATURE GRANULOCYTES ABS AUTO 0.03 [facility] Immature granulocytes/100 WBC (Bld) 0.4 % 0.0 - 0.5 % [facility] Interpretation and review of laboratory results Abnormal [facility] LYMPHOCYTES ABSOLUTE AUTO 0.9 Low [facility] Lymphocytes/100 WBC (Bld) 10.9 % Low 20.5 - 60.0 % [facility] MCH (RBC) [Entitic mass] 30.7 pg 26.7 - 34.0 pg [facility] MCHC (RBC) [Mass/Vol] 33.8 g/dL 29.9 - 35.2 g/dL [facility] MCV (RBC) [Entitic vol] 90.8 fL 81.0 - 99.0 fL [facility] MONOCYTES ABSOLUTE AUTO 0.5 [facility] Monocytes/100 WBC (Bld) 6 % 1.7 - 12.0 % [facility] NEUTROPHILS ABSOLUTE AUTO 6.8 High [facility] Neutrophils/100 WBC (Bld) 81.6 % High 43.0 - 75.0 % [facility] Platelet mean volume (Bld) [Entitic vol] 11.5 fL 9.5 - 13.5 fL [facility] # [facility].1 [facility] TB PLT 136 Low [facility] e TB RBC 4.04 Low [facility] TBH WBC 8.3 [facility] e HCG ( test) Ql (U)o n 06-15-2024 Interpretation and review of laboratory results Abnormal [facility] Preg Test, Ur Positive [facility] Health[facility] e Urinalysis macro (dipstick) panel (U)on 06-15-2024 Bilirubin, UA Negative Negative - 4(70) +++ mg/dL [facility] Blood, UA Negative Negative - 50 Robbi/mcL [facility] Clarity, UA Clear [facility] re Color, UA Yellow [facility] e Glucose, UA Negative Negative - 1999(110) ++++ mg/dL [facility] Interpretation and review of laboratory results Abnormal [facility] Ketones, UA Positive Negative - 160(16) ++++ mg/dL [facility] Comment on above: trace Leukocytes, UA Negative Negative - 500+++ Jose/mcL [facility] Nitrite, UA Negative Negative - Positive [facility] pH, UA 5.5 5 - 9 [facility] e Protein, UA Negative Negative - 1999(20) ++++ mg/dL [facility] Spec Grav, UA 1.030 1 - 1.03 [facility] Urobilinogen, UA 0.2 0.2 - 12 mg/dL [facility] Health[facility] e XR HAND LT MIN [...] by: IVET STAUFFER Date: 2020-04-06 21:56 Normal [facility] Vital Signs Date Time Vital Sign Value Performing Clinician Ailyn wany 10-04-2024 11:22-0500 Body weight 79.11 kg Zenon Antony DO Work Phone: [facility] 10-04-2024 11:22-0500 Diastolic blood pressure 60 mm[Hg] Zenon Antony DO Work Phone: [facility] 10-04-2024 11:22-0500 Systolic blood pressure 110 mm[Hg] Zenon Antony DO Work Phone: [facility] 09-18-2024 10:19-0500 Body weight 77.62 kg Jane LR Work Phone: [facility] 09-18-2024 10:19-0500 Diastolic blood pressure 60 mm[Hg] Jane LR Work Phone: [facility] 09-18-2024 10:19-0500 Systolic blood pressure 104 mm[Hg] Jane LR Work Phone: [facility] 08-28-2024 15:12-0500 Body weight 80.92 kg Zenon Antony DO Work Phone: [facility] 08-28-2024 15:12-0500 Diastolic blood pressure 54 mm[Hg] Zenon Antony DO Work Phone: [facility] 08-28-2024 15:12-0500 Systolic blood pressure 108 mm[Hg] Zenon Antony DO Work Phone: [facility] 07-27-2024 15:36-0500 Body weight 77.11 kg Jane LR Work Phone: [facility] 07-27-2024 15:36-0500 Diastolic blood pressure 64 mm[Hg] Jane LR Work Phone: [facility] 07-27-2024 15:36-0500 Systolic blood pressure 106 mm[Hg] Jane LR Work Phone: [facility] 06-20-2024 11:01-0400 Body weight 76.2 kg Zenon Antony DO Work Phone: [facility] 06-20-2024 11:01-0400 Diastolic blood pressure 70 mm[Hg] Zenon Antony DO Work Phone: [facility] 06-20-2024 11:01-0400 Systolic blood pressure 108 mm[Hg] Zenon Antony DO Work Phone: [facility] [facility] 06-15-2024 13:41-0400 Body weight 74.84 kg Noms Nurse [facility] 06-15-2024 13:41-0400 Diastolic blood pressure 64 mm[Hg] [facility] Nurse [facility] 06-15-2024 13:41-0400 Systolic blood pressure 102 mm[Hg] Noms Nurse [facility] Encounters Encounter Date Encounter Type Care Provider Facility Start: 10-13-2024 End: 10-13-2024 Clinisync Result Encounter Zenon Antony DO Work Phone: [facility] External [facility] Unsolicited Start: 10-13-2024 End: 10-13-2024 Clinisync Result Encounter Zenon Antony DO Work Phone: [facility] External [facility] Unsolicited Start: 10-12-2024 End: 10-12-2024 ambulatory [facility] Start: 10-06-2024 End: 10-06-2024 Orders Only Alise Zimmerman RN Maternal- Medic ine at [facility] Comment on above: Poor growth af [...] Result Encounter Zenon Antony DO Work Phone: [facility] External Department Unsolicited Start: 09-04-2024 End: 09-04-2024 Clinisync Result Encounter Zenon Antony DO Work Phone: [facility] External Department Unsolicited Start: 09-03-2024 End: 09-03-2024 ambulatory [facility] Start: 08-28-2024 End: 08-28-2024 Office outpatient [...] Start: 07-27-2024 End: 07-27-2024 Bamboo flowsheet Jane Andes PA Work Phone: [facility] Start: 07-27-2024 End: 08-07-2024 Bamboo flowsheet Jane Andes PA Work Phone: [facility] Start: [...] Author Start: 09-03-2025 Tobacco Screening Tobacco Screening [facility] Start: 11-16-2024 End: 11-16-2024 Patient encounter procedure 11/16/2024 11:30 AM EDT Routine [facility] [address] [facility] [place] [phone] Jane Stewart PA [address] [place] [address] [facility] Start: 11-09-2024 End: 11-09-2024 Patient encounter procedure 11/09/2024 10:50 AM EST Routine [facility] [address] [place] [phone] Zenon Hardy, DO [address] [place] [address] [facility] Start: 11-03-2024 End: 10-06-2025 [...] AM EST Routine [facility] [address] [facility] [place] [phone] Jane Stewart PA [address] [place] [address] [place] [address] [facility] Start: 10-26-2024 End: 10-26-2024 Patient encounter procedure 10/26/2024 10:20 AM EST Routine [facility] [address] [place] [phone] Zenon Hardy, DO [address] [place] [address] [facility] Start: 10-19-2024 End: 10-19-2024 Patient encounter procedure 10/19/2024 1:30 PM EST Routine [facility] [address] [place] [phone] Jane Stewart PA [address] [facility] [place] [address] [facility] Start: 10-12-2024 End: 10-12-2024 Patient encounter procedure 10/12/2024 1:00 PM EST Appointment [facility] [address] [place] [address] [facility] [place] Start: 10-04-2024 End: 10-04-2024 Patient encounter procedure 10/04/2024 11:30 AM EST Routine [facility] [address] [place] [phone] Zenon Hardy DO [address] [place] [address] [facility] Start: 10-04-2024 End: 10-04-2024 Professional / ancillary services management 10/04/2024 11:00 AM EST Ancillary Procedure [facility] [address] [place] [address] [facility] Start: 09-18-2024 End: [...] PM EST Routine [facility] [address] [place] [phone] Jane Stewart PA [address] [facility] [place] [address] Arrived [facility] Comment on above: Arrived Start: 07-18-2024 End: 07-18-2024 Patient encounter procedure 07/18/2024 10:10 AM EST Routine [facility] [address] [facility] [place] [phone] Zenon Hardy DO [address] [place] [address] [facility] Start: 07-04-2024 End: 07-04-2024 Professional / ancillary services management 07/04/2024 2:00 PM EDT Ancillary Procedure [facility] [address] [place] [phone] [facility] Start: 06-20-2024 End: 06-20-2025 US for US OB ANATOMY SINGLE W US OB CERVICAL LENGTH Imaging Routine Screening, , for anatomic survey Expected: 06/20/2024 (Approximate), Expires: 06/20/2025 [facility] Work Phone: Comment on [...] Second trimester Expected: 06/15/2024 (Approximate), Expires: 06/15/2025 [facility] [...] first trimester Expected: 06/15/2024 (Approximate), Expires: 06/15/2025 [facility] Comment on above: Expected: 06/15/2024 (Approximate), Expires: 06/15/2025 Start: 06-15-2024 End: 06-15-2025 US for US OB > 14 WEEKS Imaging Routine Missed menses Expected: 06/15/2024 (Approximate), Expires: 06/15/2025 [facility] Comment on above: Expected: 06/15/2024 (Approximate), Expires: 06/15/2025 Start: 05-07-2024 Influenza vaccination [facility] Start: 06-08-2022 DTaP,Tdap and Td Vaccines (2 - Td or Tdap) DTaP,Tdap and Td Vaccines (2 - Td or Tdap) [facility] Start: 02-01-2020 Screening for malign ant neoplasm of cervix Pap Smear [facility] Start: 2017 Adult BMI Screening Adult BMI Screen ing [facility] Start: 2011 Depression Screening Depression Scre ening [facility] Start: 1999 Tobacco Counseling Tobacco Counselin [facility] Bacteria identified in Urine by Culture Urine culture Microbiology Routine Missed menses Ordered: 06/15/2024 [facility] Comment on above: Ordered: 06/15/2024 CBC W Auto Different ial panel - Blood CBC and differential Lab Routine Missed menses , unspecified gestational age Ordered: 06/15/2024 [facility] Comment on above: Ordered: 06/15/2024 CHLAMYDIA TRACHOMATI S (GENITO/STI) CHLAMYDIA TRACHOMATIS (GENITO/STI) Lab Routine Second trimester 22 weeks gestation of Ordered: 07/27/2024 [facility] Comment on above: Ordered: 07/27/2024 Cytology Cervical or vaginal smear or scraping study Pap Smear Pathology and Cytology Routine Second trimester 22 weeks gestation of Ordered: 07/27/2024 [facility] Work Phone: Comment on above: Ordered: 07/27/2024 Hemoglobin A1c/Hemoglobin.total in Blood Hemoglobin A1c Lab Routine Missed menses , unspecified gestational age Ordered: 06/15/2024 [facility] Comment on above: Ordered: 06/15/2024 Hepatitis B virus surface Ag [Presence] in Serum or Plasma by Immunoassay Hepatitis B surface antigen Lab Routine Missed menses , unspecified gestational age Ordered: 06/15/2024 [facility] Comment on above: Ordered: 06/15/2024 Hepatitis C virus Ab [Presence] in Serum or Plasma by Immunoassay Hepatitis C antibody Lab Routine Missed menses , unspecified gestational age Ordered: 06/15/2024 [facility] Comment on above: Ordered: 06/15/2024 HIV-1/HIV-2 antigen/antibody combination immunoassay HIV-1 and HIV-2 antibodies Lab Routine Missed menses , unspecified gestational age Ordered: 06/15/2024 [facility] Comment on above: Ordered: 06/15/2024 Neisseria gonorrhoea e DNA [Presence] in Unspecified specimen by SEAN with probe detection Neisseria gonorrhea DNA probe, direct Lab Routine Second trimester 22 weeks gestation of Ordered: 07/27/2024 [facility] Comment on above: Ordered: 07/27/2024 Reagin Ab [Presence] in Serum by RPR RPR Lab Routine Missed menses , unspecified gestational age Ordered: 06/15/2024 [facility] Comment on above: Ordered: 06/15/2024 Rubella antibody, IgG Rubella an tibody, IgG Lab Routine Missed menses , unspecified gestational age Ordered: 06/15/2024 [facility] Comment on above: Ordered: 06/15/2024 SURESWAB(R) ADVANCED VAGINITIS PLUS, TMA SURESWAB(R) ADVANCED VAGINITIS PLUS, TMA Pathology and Cytology Routine Second trimester 22 weeks gestation of Ordered: 07/27/2024 [facility] Comment on above: Ordered: 07/27/2024 Payers Date Payer Category Payer Medicaid [id number] 2022 Medicaid [id number] 1999 Unknown [id number] 2.16.84 [id number] 1999 Unknown [id number] 2.16.84 [id number] 1999 Unknown [id number] 2.16.84 [id number] 1999 Unknown [id number] 2.16.84 [id number] 1999 Unknown [id number] 2.16.84 [id number] 1999 Unknown [id number] 2.16.84 [id number] 1999 Unknown [id number] 2.16.84 [id number] 1999 Unknown [id number] 2.16.84 [id number] 1999 Unknown [id number] 2.16. [id number] 1959 Unknown [id number] Social History Date Type Detail Facility Tobacco smoking stat [facility] Tobacco smoking consumption unknown [facility] Start: 02-23-2024 [facility] Start: 1999 Sex assigned at Female [facility] Start: 06-08-2024 Gender identity Identifies as female gender (finding) [facility] Start: 10-17-2020 End: 09-03-2024 Sexual orientation Not on file [facility] Start: 09-26-2008 Tobacco smoking stat [facility] Smokes tobacco daily [facility] Start: 09-26-2008 End: 05-07-2018 History of tobacco use Cigarette Smoker [facility] Start: 11-13-2018 End: 10-17-2020 Cigarettes smoked current (pack per day) - Reported 1 [facility] Start: 11-13-2018 Tobacco use and exposure Smokeless tobacco non-user [facility] Start: 09-03-2024 Alcoholic beverage intake Current non-drinker of alcohol (finding) [facility] Are you worried or concerned that in the next two months you may not have stable housing that you own, rent or stay in as a part of a household? No [facility] Start: 1999 Sex assigned at Not on file [facility] Start: 04-11-2015 Sex Female (finding) [facility] Clinical Notes 06-15-2024 to 10-04-2024 Colleen Choi [...] nursing note reviewed. Exam conducted with a exhaust tender present. Vitals: There is no height or [...] Zenon Hardy DO documented in this encounter [facility] 09-18-2024 History of Presen t illness Narrative [...] of: ADELINE Ward documented in this encounter [facility] 08-28-2024 History of Presen t illness Narrative [...] nursing note reviewed. Exam conducted with a exhaust tender present. Vitals: There is no height or [...] Zenon Hardy DO documented in this encounter [facility] 07-27-2024 History of Presen t illness Narrative [...] obtained without difficulty and patient was given [facility] order to have obtained. Orders [...] nursing note reviewed. Exam conducted with a exhaust tender present. Vitals: There is no height or [...] obtained without difficulty and patient was given [facility] order to have obtained. Follow Up: Patient is to return to our office in 4 weeks for routine OB appointment Documented by Consuelo Hernandez LPN on behalf of: ADELINE Ward documented in this encounter [facility] 06-20-2024 History of Presen t illness Narrative [...] nursing note reviewed. Exam conducted with a exhaust tender present. Vitals: There is no height or [...] Jane Stewart PA-C documented in this encounter [facility] 06-15-2024 History of Presen t illness Narrative [...] or undercooked meat, and stay away from [facility]. Patient has also been advised to not [...] by: Nahed Louie documented in this encounter [facility] Evaluation note Diagnosis Missed menses , [...] unspecified fetus- Primary documented in this encounter [facility] System[facility]ructionsNot on filedocumented in this encounter [facility] Summary Purpose Family History No Family History Records FoundNo Family History Records FoundNo Family History Records FoundNo Family History Records Found Advance Directives No Advanced Directives Records Found Date Activated Date Inactivated Comments 05/27/2018 6:21 PM 05/27/2018 8:31 PM Additional Source Comments INFORMATION SOURCE (unrecogn ized section and content) DATE CREATED AUTHOR [facility]09/2020 [facility] DATE CREATED AUTHOR AUTHOR'S ORGANIZ ATION 09/04/2024 [facility] DATE CREATED AUTHOR AUTHOR'S ORGANIZ ATION 10/06/2024 [facility] EPIC DATE CREATED AUTHOR AUTHOR'S ORGANIZ ATION 10/14/2024 [facility] Reason for Visit (unrecogniz ed section and content) Reason Comments Initial Visit Reason Comments Routine Visit Care Teams (unrecognized sec tion and content) Global Account Executive Relationship Specialty Start Date End Date Swapna Omalley NP [address] [place] [address] PCP - [facility] 12/06/23 Global Account Executive Relationship Specialty Start Date End Date Swapna Omalley NP [address] [place] [address] PCP - [facility] 12/06/23 Global Account Executive Relationship Specialty Start Date End Date Swapna Omalley NP [address] [place] [address] PCP - [facility] 12/06/23 Global Account Executive Relationship Specialty Start Date End Date Swapna Omalley NP [address] [place] [address] PCP - [facility] 12/06/23 Global Account Executive Relationship Specialty Start Date End Date Swapna Omalley NP [address] [facility] [place] [address] PCP - N[facility]Willian Perez [facility] 12/06/23 Global Account Executive Relationship Specialty Start Date End Date Swapna Omalley NP [address] [place] [address] PCP - [facility]Willian Perez [facility] 12/06/23 Global Account Executive Relationship Specialty Start Date End Date [facility] [address] [place], [place] PCP - General Family Medicine 11/13/18 Global Account Executive Relationship Specialty Start Date End Date Swapna Omalley NP [address] [facility] [place] [address] PCP Josey Perez [facility] 12/06/23 FOR RECORDS PERTAINING TO PATIENTS [...] BE BASED ON THE PRIMARY CLINICAL RECORDS. [facility] [employer] [facility]. provides no warranty or guarantee of the accuracy or completeness of information in this document.
== END 2024-10-24 20:21 | disposition home or self-care (01) ==
LOC: LAB 20:20
PROVIDERS: Visit Provider Physician Assistant
DX: Z34.93 Encounter for supervision of normal pregnancy, unspecified, third trimester (principal)
CPT/HCPCS: 36415; 87081

== ENCOUNTER 2024-11-10 09:40 | Inpatient (IN) | payer MEDICAID, SELFPAY ==
[2024-11-10] VITALS (10 sets, daily range): BP systolic 83–112; BP diastolic 49–69; PULSE 76–110; TEMP 36.4–36.8
--- OUTSIDE RECORDS SUMMARY | 2024-11-10 09:45 | XMS_ITS | CCD ---
Author Organization [facility] Care Team Providers Care Licensed Weigher Name Role Phone SHIRA ARMSTRONG Admitting Unavailable SHIRA ARMSTRONG Attending Unavailable JODEE RUBALCAVA Consulting Unavailable MIS, DOCTOR Primary Care Unavailable IVET STAUFFER Consulting Unavailable Shahram SENIOR TECHNICAL SUPPORT ENGINEER, Swapna Bowser Unavailable DAVID SOLO Admitting Unavailable DAVID SOLO Attending Unavailable SERVICES, [facility] Primary Care Unava ilable Services, [facility] Primary Care Provider ZENON HARDY Referring Unavailable SERVICES, [facility] Unava ilable JANE STEWART Attending Unavailable ANTONYZENON Attending Unavailable TERRY, JANE Attending Unavailable TERRY, JANE Attending Unavailable ANTONY, ZENON Attending Unavailable TERRY, JANE Referring Unavailable ZENON HARDY Attending Unavailable TERRY, JANE Attending Unavailable Allergies Allergy Classification Reported Allergen(s) Allergy Type Date of Onset Reaction(s) Facility (3 sources) Penicillins; Translations: [PENICILLINS] Drug allergy (disorder) 7 [facility] Repository (20 sources) Penicillins Propensity to adverse reactions 7 [facility] (1 source) Penicillins Propensity to adverse reactions to drug 7 [facility] [email or web address] Work Phone: Medications Current Medications Medication [...] Active ondansetron 4 mg disintegrating oral tablet (8 sources) Serotonin-3 Receptor Antagonist Start: 07-09-2020 End: 10-24-2024 take 1 tablet by mouth every six hours as needed for nausea and vomiting and nausea and nausea ondansetron ODT (Zofran-ODT) 4 MG disintegrating tablet Indications: Nausea Take 1 tablet (4 mg) by mouth every 6 (six) hours if needed for nausea or vomiting 30 tablet 2 09/18/2024 10/24/2024 Discontinued Problems Active Problems Problem Classification Problem Date [...] 04-06-2020 Episodic Other and delivery including normal (19 sources) ; Translations: [Encounter for supervision of [...] [33 weeks gestation of ] 10-04-2024 Episodic Residual codes; unclassified (2 sources) Gestation period, 36 weeks; Translations: [36 weeks gestation of ] 10-24-2024 Episodic Residual codes; unclassified (2 sources) Gestation period, 38 weeks; Translations: [38 weeks gestation of ] 11-02-2024 Episodic Residual codes; unclassified (2 sources) Gestation period, 39 weeks; Translations: [39 weeks gestation of ] 11-09-2024 Episodic Spondylosis; intervertebral disc disorders; other back problems (2 sources) Sciatica, left side; Translations: [Sciatica] Onset: 09-03-2024 Episodic Substance-related disorders (1 source) Nicotine dependence, cigarettes, uncomplicated; Translations: [NICOTINE DEPEND CIGARETTES UNCOMP] Onset: 04-09-2020 Chronic Superficial injury; contusion (1 source) Contusion of left hand, initial encounter; Translations: [CONTUSION LEFT HAND INITIAL ENC] Onset: 04-09-2020 Episodic Urinary tract infections (4 sources) Urinary tract infectious disease; Translations: [Urinary tract infection, site not specified] 10-04-2024 Episodic Past or Other Problems Problem Classification Problem Date Documented Da te Episodic/Chronic NEGATED: Highlighted row has been ruled out!Unclassified (1 source) No known active problems 09-03-2024 Results Test Name Value Interpretation Reference Range Facility Urinalysis macro (dipstick) panel (U)on 11-09-2024 Bilirubin, UA Moderate Negative - 4(70) +++ mg/dL [facility] Blood, UA Positive Negative - 50 Robbi/mcL [facility] Comment on above: large Clarity, UA Clear [facility] re Color, UA Lala [facility] Glucose, UA Positive Negative - 1999(110) ++++ mg/dL [facility] Comment on above: 100 Interpretation and review of laboratory results Abnormal [facility] Ketones, UA Positive Negative - 160(16) ++++ mg/dL [facility] Comment on above: 15 Leukocytes, UA Positive Negative - 500+++ Jose/mcL [facility] Nitrite, UA Negative Negative - Positive [facility] pH, UA 6 5 - 9 [facility] Protein, UA Positive Negative - 1999(20) ++++ mg/dL [facility] Comment on above: 100 Spec Grav, UA 1.025 1 - 1.03 [facility] Urobilinogen, UA 1.0 0.2 - 12 mg/dL [facility] Urinalysis macro (dipstick) panel (U)on 11-02-2024 Bilirubin, UA Positive Negative - 4(70) +++ mg/dL [facility] Comment on above: small Blood, UA Negative Negative - 50 Robbi/mcL [facility] Clarity, UA Clear [facility] Color, UA Lala [facility] Glucose, UA Negative Negative - 1999(110) ++++ mg/dL [facility] Interpretation and review of laboratory results Abnormal [facility] Ketones, UA Negative Negative - 160(16) ++++ mg/dL [facility] Leukocytes, UA Positive Negative - 500+++ Jose/mcL [facility] Comment on above: small Nitrite, UA Negative Negative - Positive [facility] pH, UA 6 5 - 9 [facility] Protein, UA Positive Negative - 1999(20) ++++ mg/dL [facility] Comment on above: 30 Spec Grav, UA 1.03 1 - 1.03 [facility] Urobilinogen, UA 0.2 0.2 - 12 mg/dL [facility] ALL MISCELLANEOUS TESTon MISCELLANEOUS TEST COMMENT . [facility] H ealthcare Comment on above: Test Ordered: [id number] Strep Gp B Culture+Rflx Strep Gp B Culture+Rflx Negative CB Reference Range: Negative Centers for Disease Control and Prevention (CDC) and [place] Congress of Obstetricians and Gynecologists (ACOG) guidelines for prevention of group B streptococcal (GBS) disease specify co-collection of a vaginal and rectal swab specimen to maximize sensitivity of GBS detection. Per the CDC and ACOG, swabbing both the lower vagina and rectum substantially increases the yield of detection compared with sampling the vagina alone. Penicillin G, ampicillin, or cefazolin are indicated for intrapartum prophylaxis of GBS colonization. Reflex susceptibility testing should be performed prior to use of clindamycin only on GBS isolates from penicillin- allergic women who are considered a high risk for anaphylaxis. Treatment with vancomycin without additional testing is warranted if resistance to clindamycin is noted. Performed at: [facility] [address] [id number] Fire Support Specialist: Jai Charles PhD, Phone: [phone] GROUP B STREP [id number] CULTURE, GROUP B STREP WITH SUSCEPTIBILITY [facility] Urinalysis macro (dipstick) panel (U)on 10-24-2024 Bilirubin, UA Negative Negative - 4(70) +++ mg/dL [facility] Blood, UA Negative Negative - 50 Robbi/mcL [facility] Clarity, UA Clear [facility] re Color, UA Lala [facility] Glucose, UA Negative Negative - 1999(110) ++++ mg/dL [facility] Interpretation and review of laboratory results Abnormal [facility] Ketones, UA Negative Negative - 160(16) ++++ mg/dL [facility] Leukocytes, UA Negative Negative - 500+++ Jose/mcL [facility] Nitrite, UA Negative Negative - Positive [facility] pH, UA 6 5 - 9 [facility] e Protein, UA Positive Negative - 1999(20) ++++ mg/dL [facility] Comment on above: 30 Spec Grav, UA 1.03 1 - 1.03 [facility] Urobilinogen, UA 0.2 0.2 - 12 mg/dL [facility] US OB BPP W NON-STRESS on 10-13-[address] [address] Ultrasound Report Signed Patient: SIA LAY MR#: [id number] : 2000 Acct:[id number] Age/Sex: 24 / F ADM Date: 10/13/24 Loc: [facility] 250-[address]: Zenon Hardy D.O. Ordering Physician: Zenon Hardy D.O. Date of Service: 10/13/24 Procedure(s): US OB BPP w non-stress Accession Number(s): [id number] cc: Zenon Hardy D.O.; Physician,Non-Staff Yessica The [address] [address] Patient Name: SIA LAY MRN: [facility]:[id number] date: 2000 Sex: F Assigned Patient Location: [facility] Current Patient Location: [facility] Accession/Order Number: [id number] Exam Date: 10/13/2024 09:05 Report Date: 10/13/2024 [...] Duncan M.D. Signed By: 10/13/2451 DD/ TD/TT: Olive Knocker: [facility] Radiology, Radiologist, MD - 10/13/[address] [address] Ultrasound Report Signed Patient: SIA LAY MR#: [id number] : 2000 Acct:[id number] Age/Sex: 24 / F ADM Date: 10/13/24 Loc: [facility] 250-[address]: Zenon Hardy D.O. Ordering Physician: Zenon Hardy D.O. Date of Service: 10/13/24 Procedure(s): US OB BPP w non-stress Accession Number(s): [id number] cc: Zenon Hardy D.O.; Physician,Non-Staff Yessica [address] [address] Patient Name: SIA LAY MRN: [id number]:[id number] date: 2000 Sex: F Assigned Patient Location: [facility] Current Patient Location: [facility] Accession/Order Number: [id number] Exam Date: 10/13/2024 09:05 Report Date: 10/13/2024 [...] Keya Duncan M.D. Signed By: 10/13/2451 DD/ 8 TD/TT: Olive Knocker: [facility] Radiology Study observation (narrative) [facility] US OB BPP W NON-STRESS Ordered By: Radiologist Radiology on 10-13-2024 [facility] [employer] Work Phone: US OB FOLLOW UP TRANSABDOMIN [...] 1924 gm / 4 lbs, 3 oz (5236-5375 gm) [place] Normal: 2346 cm (3443-4568 gm) [place] Wt%: 1% for 33.9 wks [...] report is generated using voice recognition reporting ([employer]). On occasion [employer] erroneously drops words from the report or [...] UA Positive Negative - 4(70) +++ mg/dL [facility] Comment on above: small Blood, UA Negative Negative - 50 Robbi/mcL [facility] Clarity, UA Clear [facility] Color, UA Lala [facility] Glucose, UA Negative Negative - 1999(110) ++++ mg/dL [facility] Interpretation and review of laboratory results Abnormal [facility] Ketones, UA Negative Negative - 160(16) ++++ mg/dL [facility] Leukocytes, UA Negative Negative - 500+++ Jose/mcL [facility] Nitrite, UA Positive Negative - Positive [facility] pH, UA 6 5 - 9 [facility] Protein, UA Positive Negative - 1999(20) ++++ mg/dL [facility] Comment on above: 30 Spec Grav, UA 1.03 1 - 1.03 [facility] Urobilinogen, UA 0.2 0.2 - 12 mg/dL [facility] Urinalysis macro (dipstick) panel (U)on 09-18-2024 Bilirubin, UA Positive Negative - (70) +++ mg/dL [facility] Comment on above: small Blood, UA Negative Negative - 50 Robbi/mcL [facility] Clarity, UA Clear [facility] Color, UA Lala [facility] Glucose, UA Negative Negative - 1999(110) ++++ mg/dL [facility] Interpretation and review of laboratory results Abnormal [facility] Ketones, UA Positive Negative - 160(16) ++++ mg/dL [facility] Comment on above: trace Leukocytes, UA Positive Negative - 500+++ Jose/mcL [facility] Comment on above: small Nitrite, UA Positive Negative - Positive [facility] pH, UA 5.5 5 - 9 [facility] Protein, UA Positive Negative - 1999(20) ++++ mg/dL [facility] Comment on above: 100 Spec Grav, UA 1.03 1 - 1.03 [facility] Urobilinogen, UA 1.0 0.2 - 12 mg/dL [facility] ALL CBC WITH AUTO DIFFon BASOPHILS ABSOLUTE AUTO 0 [facility] Basophils/100 WBC (Bld) 0.2 % 0.2 - 2.0 % [facility] Eosinophils/100 WBC (Bld) 1 % 0.9 - 7.0 % [facility] Erythrocyte distribution width (RBC) [Ratio] 12.3 % 11.0 - 15.0 % [facility] Hematocrit (Bld) [Volume fraction] 35.9 % Low 36.0 - 48.0 % [facility] Hemoglobin (Bld) [Mass/Vol] 11.7 g/dL Low 12.0 - 16.0 g/dL [facility] IMMATURE GRANULOCYTES ABS AUTO 0.03 [facility] Immature granulocytes/100 WBC (Bld) 0.3 % 0.0 - 0.5 % [facility] Interpretation and review of laboratory results Abnormal [facility] LYMPHOCYTES ABSOLUTE AUTO 1.1 Low [facility] Lymphocytes/100 WBC (Bld) 12.7 % Low 20.5 - 60.0 % [facility] MCH (RBC) [Entitic mass] 30.5 pg 26.7 - 34.0 pg [facility] MCHC (RBC) [Mass/Vol] 32.6 g/dL 29.9 - 35.2 g/dL [facility] MCV (RBC) [Entitic vol] 93.7 fL 81.0 - 99.0 fL [facility] MONOCYTES ABSOLUTE AUTO 0.6 [facility] Monocytes/100 WBC (Bld) 6.6 % 1.7 - 12.0 % [facility] NEUTROPHILS ABSOLUTE AUTO 7 High [facility] Neutrophils/100 WBC (Bld) 79.2 % High 43.0 - 75.0 % [facility] Platelet mean volume (Bld) [Entitic vol] 12.1 fL 9.5 - 13.5 fL [facility] # 0.1 [facility] TB PLT 137 Low [facility] TB RBC 3.83 Low [facility] WBC 8.8 [facility] DRUG SCREEN, URINEon 024 AMPHETAMINE/METHAMP Negative Normal NEG [facility] Comment on above: Result Comment: AMPH /METH screening cut off = 1000 ng/mL Performed By: #### D MONTENEGRO #### [facility] ([id number]) [address] [place] [address], [place] [address] BARBITURATES Negative Normal NEG [facility] Comment on above: Result Comment: Mackenzie iturates screening cut off value = 200 ng/mL Performed By: #### D MONTENEGRO #### [facility] ([id number]) [address] [place] [address] BENZODIAZEPINES Negative Normal NEG [facility] Comment on above: Result Comment: Horacio odiazepines screening cut off value = 200 ng/mL Performed By: #### D MONTENEGRO #### [facility] ([id number]) [address] [place] [address] CANNABINOIDS Negative Normal NEG [facility] Comment on above: Result Comment: Ryan abinoids/THC screening cut off value = 50 ng/mL Performed By: #### D MONTENEGRO #### [facility] ([id number]) [address] [place] [address] COCAINE METABOLITE Negative Normal NEG [facility] Comment on above: Result Comment: Coca ine screening cut off value = 300 ng/mL Performed By: #### D MONTENEGRO #### [facility] ([id number]) [address] [place] [address] ECSTASY Negative Normal NEG [facility] Comment on above: Result Comment: Ecst asy screening cut off value = 500 ng/mL This report is intended for use in clinical monitoring or management of patients. Performed By: #### D MONTENEGRO #### [facility] ([id number]) [address] [place] [address] METHADONE Negative Normal NEG [facility] Comment on above: Result Comment: Meth adone screening cut off value = 300 ng/mL. Performed By: #### D MONTENEGRO #### [facility] ([id number]) [address] [place] [address] OPIATES Negative Normal NEG [facility] Comment on above: Result Comment: Opia taya screening cut off value = 300 ng/mL NOTE: This test is used for the detection of codeine, hydrocodone (>1000 ng/mL), morphine and hydromorphone (>900 ng/mL) in urine. Performed By: #### D MONTENEGRO #### [facility] ([id number]) [address] [place] [address] [place] [address] OXYCODONE Negative Normal NEG [facility] Comment on above: Result Comment: Oxyc odone screening cut off value = 300 ng/mL NOTE: This test is used for the detection of oxycodone and oxymorphone in urine. Performed By: #### D MONTENEGRO #### [facility] ([id number]) [address] [place] [address] [place] [address] PHENCYCLIDINE Negative Normal NEG [facility] Comment on above: Result Comment: Phen cyclidine screening cut off value = 25 ng/mL Performed By: #### D MONTENEGRO #### [facility] ([id number]) [address] [place] [address] [place] [address] URINALYSISon 09-03-2024 Bilirubin Ql (U) Negative Normal NEG [facility] Comment on above: Performed By: #### U A #### [facility] ([id number]) [address] [place] [address] [place] [address] BLOOD/HGB Trace Abnormal NEG [facility] Comment on above: Performed By: #### U A #### [facility] ([id number]) [address] [place] [address] [place] [address] Color (U) YELLOW Normal YELLOW [facility] Comment on above: Performed By: #### U A #### [facility] ([id number]) [address] [place] [address] [place] [address] Glucose Ql (U) Negative Normal [facility] Comment on above: Performed By: #### U A #### [facility] ([id number]) [address] [place] [address] [place] [address] Ketones Ql (U) Negative Normal NEG [facility] Comment on above: Performed By: #### U A #### [facility] ([id number]) [address] [place] [address] [place] [address] Leukocyte esterase Test strip Ql (U) Negative Normal NEG [facility] Comment on above: Performed By: #### U A #### [facility] ([id number]) [address] [place] [address] Nitrite Ql (U) Negative Normal NEG [facility] Comment on above: Performed By: #### U A #### [facility] ([id number]) [address] [place] [address] pH (U) 6.0 [pH] Normal 5.0-8.5 [facility] Comment on above: Performed By: #### U A #### [facility] ([id number]) [address] [place] [address] Protein Ql (U) Trace Abnormal NEG [facility] Comment on above: Performed By: #### U A #### [facility] ([id number]) [address] [place] [address] R.B.CELLS 1 /hpf Normal 0-5 [facility] Comment on above: Performed By: #### U A #### [facility] ([id number]) [address] [place] [address] Specific gravity (U) [Rel density] >1.030 Normal 1.003-1.035 [facility] Comment on above: Performed By: #### U A #### [facility] ([id number]) [address] [place] [address] SQUAMOUS EPITHELIUM 9 /hpf High 0-5 [facility] Comment on above: Performed By: #### U A #### [facility] ([id number]) [address] [place] [address] [place] [address] TURBIDITY CLEAR Normal CLEAR [facility] Comment on above: Performed By: #### U A #### [facility] ([id number]) [address] [place] [address], [place] [address] Urobilinogen Qn (U) 0.2 {Nathanael'U}/dL Normal <1.1 [facility] Comment on above: Performed By: #### U A #### [facility] ([id number]) [address] [place] [address], [place] [address] W.B.CELLS 0 /hpf Normal 0-5 [facility] Comment on above: Performed By: #### U A #### [facility] ([id number]) [address] [place] [address], [place] [address] Urinalysis macro (dipstick) panel (U)on 08-28-2024 Bilirubin, UA Negative Negative - 4(70) +++ mg/dL [facility] Blood, UA Negative Negative - 50 Robbi/mcL [facility] Clarity, UA Clear [facility] re Color, UA Yellow [facility] [employer] [facility] Glucose, UA Negative Negative - 1999(110) ++++ mg/dL [facility] Interpretation and review of laboratory results Abnormal [facility] Ketones, UA Positive Negative - 160(16) ++++ mg/dL [facility] Comment on above: 15mg Leukocytes, UA Negative Negative - 500+++ Jose/mcL [facility] Nitrite, UA Negative Negative - Positive [facility] pH, UA 6 5 - 9 [facility] [employer] Protein, UA Negative Negative - 1999(20) ++++ mg/dL [facility] Spec Grav, UA 1.03 1 - 1.03 [facility] Urobilinogen, UA 0.2 0.2 - 12 mg/dL [facility] IGP,APTIMA HPV,AGE GDLNon AGE GDLN ACOG TESTING Note . [facility] Comment on above: TESTS RESULT FLAG UN ITS REF RANGE LAB Clinician Provided Cytology Information Source.............Cervix No. of containers..01 ThinPrep Vial Age Ricardo CLEARY Taya... FLAG LEGEND: L-Low Normal,H-High Normal,LL-Alert Low,HH-Alert High <-Panic Low,>-Panic High,A-Abnormal,AA-Critical Abnormal Performed at: 01 =G [facility] [address] Rowena Portillo MD, IGP, RFX APTIMA HPV ASCU Note . [facility] Comment on above: TESTS RESULT FLAG UN ITS REF RANGE LAB DIAGNOSIS: 02 NEGATIVE FOR INTRAEPITHELIAL LESION OR MALIGNANCY. Specimen adequacy: 02 Satisfactory for evaluation. No endocervical component is identified. Performed by: Edmundo Stern Bush Regenerator ([facility]) . 02 Note: Note 02 The [...] <-Panic Low,>-Panic High,A-Abnormal,AA-Critical Abnormal Performed at: [address] [address] Rowena Portillo MD, Performed at: =[facility] [id number] Fire Support Specialist: Rowena Portillo MD, Phone: [phone] Performed at: [address] [id number] Fire Support Specialist: Rowena Portillo MD, Phone: [phone] SPATULA-ALONE CERVIX [facility] RECURRENT VAGINITIS (HTRX)on 07-29-2024 ATOPOBIUM VAGINAE 0 [facility] ATOPOBIUM VAGINAE Not detected [facility] BVAB 2,3 (BACTERIAL VAGINOSIS ASSOCIATED BACTERIA 2, 3); MOBILUNCUS SPP 0 [facility] BVAB 2,3 (BACTERIAL VAGINOSIS ASSOCIATED BACTERIA 2, 3); MOBILUNCUS SPP Not detected [facility] IWONA ALBICANS, PARAPSILOSIS, TROPICALIS 0 [facility] IWONA ALBICANS, PARAPSILOSIS, TROPICALIS Not detected [facility] IWONA GLABRATA 0 [facility] IWONA GLABRATA Not detected [facility] Not [facility] CHLAMYDIA TRACHOMATIS 0 [facility] CHLAMYDIA TRACHOMATIS Not detected [facility] GARDNERELLA VAGINALIS 0 [facility] GARDNERELLA VAGINALIS Not detected [facility] MEGASPHAERA (TYPES 1, 2) 0 [facility] MEGASPHAERA (TYPES 1, 2) Not detected [facility] MYCOPLASMA GENITALIUM 0 [facility] MYCOPLASMA GENITALIUM Not detected [facility] NEISSERIA GONORRHOEAE 0 [facility] NEISSERIA GONORRHOEAE Not detected [facility] TRICHOMONAS VAGINALIS 0 [facility] TRICHOMONAS VAGINALIS Not detected [facility] Urinalysis macro (dipstick) panel (U)on 06-20-2024 Bilirubin, UA Negative Negative - 4(70) +++ mg/dL [facility] Blood, UA Negative Negative - 50 Robbi/mcL [facility] Clarity, UA Clear [facility] re Color, UA Yellow [facility] Glucose, UA Negative Negative - 1999(110) ++++ mg/dL [facility] Interpretation and review of laboratory results Abnormal [facility] Ketones, UA Negative Negative - 160(16) ++++ mg/dL [facility] Leukocytes, UA Negative Negative - 500+++ Jose/mcL [facility] Nitrite, UA Negative Negative - Positive [facility] pH, UA 5.5 5 - 9 [facility] e Protein, UA Negative Negative - 1999(20) ++++ mg/dL [facility] Spec Grav, UA 1.03 1 - 1.03 [facility] Urobilinogen, UA 1.0 0.2 - 12 mg/dL [facility] ALL CBC WITH AUTO DIFFon BASOPHILS ABSOLUTE AUTO 0 [facility] Basophils/100 WBC (Bld) 0.1 % Low 0.2 - 2.0 % [facility] Eosinophils/100 WBC (Bld) 1 % 0.9 - 7.0 % [facility] Erythrocyte distribution width (RBC) [Ratio] 12.4 % 11.0 - 15.0 % [facility] Hematocrit (Bld) [Volume fraction] 36.7 % 36.0 - 48.0 % [facility] [facility] Hemoglobin (Bld) [Mass/Vol] 12.4 g/dL 12.0 - 16.0 g/dL [facility] IMMATURE GRANULOCYTES ABS AUTO 0.03 [facility] Immature granulocytes/100 WBC (Bld) 0.4 % 0.0 - 0.5 % [facility] Interpretation and review of laboratory results Abnormal [facility] LYMPHOCYTES ABSOLUTE AUTO 0.9 Low [facility] Lymphocytes/100 WBC (Bld) 10.9 % Low 20.5 - 60.0 % [facility] MCH (RBC) [Entitic mass] 30.7 pg 26.7 - 34.0 pg [facility] MCHC (RBC) [Mass/Vol] 33.8 g/dL 29.9 - 35.2 g/dL [facility] MCV (RBC) [Entitic vol] 90.8 fL 81.0 - 99.0 fL [facility] MONOCYTES ABSOLUTE AUTO 0.5 [facility] Monocytes/100 WBC (Bld) 6 % 1.7 - 12.0 % [facility] NEUTROPHILS ABSOLUTE AUTO 6.8 High [facility] Neutrophils/100 WBC (Bld) 81.6 % High 43.0 - 75.0 % [facility] Platelet mean volume (Bld) [Entitic vol] 11.5 fL 9.5 - 13.5 [facility]L [facility]1 [facility] PLT 136 Low [facility] TB RBC 4.04 Low [facility] TB WBC 8.3 [facility] HCG ( test) Ql (U)o n 06-15-2024 Interpretation and review of laboratory results Abnormal [facility] Preg Test, Ur [facility]inal[facility] macro (dipstick) panel (U)on 06-15-2024 Bilirubin, UA Negative Negative - 4(70) +++ mg/dL [facility] Blood, UA Negative Negative - 50 Robbi/mcL [facility] Clarity, UA Clear [facility] re Color, UA Yellow [facility] e Glucose, UA Negative Negative - 1999(110) ++++ mg/dL [facility] Interpretation and review of laboratory results Abnormal [facility] Ketones, UA Positive Negative - 160(16) ++++ mg/dL [facility] Comment on above: trace Leukocytes, UA Negative Negative - 500+++ Jose/mcL [facility] Nitrite, UA Negative Negative - Positive [facility] pH, UA 5.5 5 - 9 [facility] e Protein, UA Negative Negative - 1999(20) ++++ mg/dL [facility] Spec Grav, UA 1.030 1 - 1.03 [facility] Urobilinogen, UA 0.2 0.2 - 12 mg/dL [facility] XR HAND LT MIN 3Von [...] by: IVET STAUFFER Date: 2020-04-06 21:56 Normal [facility] Vital Signs Date Time Vital Sign Value Performing Clinician Ailyn malave 11-09-2024 10:58-0500 Body weight 79.74 kg Zenon Antony DO Work Phone: [facility] 11-09-2024 10:58-0500 Diastolic blood pressure 70 mm[Hg] Zenon Antony DO Work Phone: [facility] 11-09-2024 10:58-0500 Systolic blood pressure 120 mm[Hg] Zenon Antony DO Work Phone: [facility] 11-02-2024 10:35-0500 Body weight 79.38 kg Jane LR Work Phone: [facility] 11-02-2024 10:35-0500 Diastolic blood pressure 70 mm[Hg] Jane LR Work Phone: [facility] 11-02-2024 10:35-0500 Systolic blood pressure 110 mm[Hg] Jane Stewart PA Work Phone: [facility] 10-24-2024 10:49-0500 Body weight 78.93 kg Jane LR Work Phone: [facility] 10-24-2024 10:49-0500 Diastolic blood pressure 70 mm[Hg] Jane LR Work Phone: [facility] 10-24-2024 10:49-0500 Systolic blood pressure 120 mm[Hg] Jane LR Work Phone: [facility] 10-04-2024 11:22-0500 Body weight 79.11 kg Zenon Antony DO Work Phone: [facility] 10-04-2024 11:22-0500 Diastolic blood pressure 60 mm[Hg] Zenon Antony DO Work Phone: [facility] 10-04-2024 11:22-0500 Systolic blood pressure 110 mm[Hg] Zenon Antony DO Work Phone: [facility] 09-18-2024 10:19-0500 Body weight 77.62 kg Jane Stewart PA Work Phone: [facility] 09-18-2024 10:19-0500 Diastolic blood pressure 60 mm[Hg] Jane LR Work Phone: [facility] 09-18-2024 10:19-0500 Systolic blood pressure 104 mm[Hg] Jane LR Work Phone: [facility] 08-28-2024 15:12-0500 Body weight 80.92 kg Zenon Antony DO Work Phone: [facility] 08-28-2024 15:12-0500 Diastolic blood pressure 54 mm[Hg] Zenon Antony DO Work Phone: [facility] 08-28-2024 15:12-0500 Systolic blood pressure 108 mm[Hg] Zenon Antony DO Work Phone: [facility] 07-27-2024 15:36-0500 Body weight 77.11 kg Jane Stewart PA Work Phone: [facility] 07-27-2024 15:36-0500 Diastolic blood pressure 64 mm[Hg] Jane Stewart PA Work Phone: [facility] 07-27-2024 15:36-0500 Systolic blood pressure 106 mm[Hg] Jane Stewart PA Work Phone: [facility] 06-20-2024 11:01-0400 Body weight 76.2 kg Zenon Antony DO Work Phone: [facility] 06-20-2024 11:01-0400 Diastolic blood pressure 70 mm[Hg] Zenon Antony DO Work Phone: [facility] 06-20-2024 11:01-0400 Systolic blood pressure 108 mm[Hg] Zenon Antony DO Work Phone: [facility] 06-15-2024 13:41-0400 Body weight 74.84 kg [facility] 06-15-2024 13:41-0400 Diastolic blood pressure 64 mm[Hg] [facility] 06-15-2024 13:41-0400 Systolic blood pressure 102 mm[Hg] [facility] Nurse [facility] Healthcare Encounters Encounter Date Encounter Type Care Provider Facility Start: 11-09-2024 End: 11-09-2024 Bamboo flowsheet Zenon Antony DO Work Phone: [facility] Start: 11-09-2024 End: 11-09-2024 Bamboo flowsheet Zenon Antony DO Work Phone: [facility] Start: 11-09-2024 End: 11-09-2024 Office outpatient visit 15 minutes Zenon Antony DO Work Phone: [facility] Comment on above: 39 weeks gestation o f ; Third trimester ; Urinary tract infection without hematuria, site unspecified Start: 11-02-2024 End: 11-02-2024 Bamboo flowsheet Jane LR Work Phone: [facility] Start: 11-02-2024 End: 11-02-2024 Bamboo flowsheet Jane LR Work Phone: [facility] Start: 11-02-2024 End: 11-02-2024 Office outpatient visit 15 minutes Jane LR Work Phone: [facility] Comment on above: 38 weeks gestation o f ; Third trimester Start: 11-02-2024 End: 11-02-2024 ambulatory JANE STEWART Not Available Start: 10-24-2024 End: 10-30-2024 Clinisync Result Encounter Jane LR Work Phone: [facility] Unsolicited Start: 10-24-2024 End: 10-30-2024 Clinisync Result Encounter Jane LR Work Phone: [facility] Unsolicited Start: 10-24-2024 End: 10-24-2024 Office outpatient visit 15 minutes Jane LR Work Phone: [facility] Comment on above: Third trimester preg prem; 36 weeks gestation of Start: 10-24-2024 End: 10-24-2024 ambulatory JANE STEWART Not Available Start: 10-13-2024 End: 10-13-2024 Clinisync Result Encounter Zenon Antony DO Work Phone: [facility] Unsolicited Start: 10-13-2024 End: 10-13-2024 Clinisync Result Encounter Zenon Antony DO Work Phone: [facility] Unsolicited Start: 10-12-2024 End: 10-12-2024 ambulatory ZENON R [facility] Start: 10-06-2024 End: 10-06-2024 Orders Only Alise Zimmerman RN Maternal- Medic ine at [facility] Comment on above: Poor growth af [...] Department Unsolicited Start: 09-03-2024 End: 09-03-2024 ambulatory [facility] Start: 08-28-2024 End: 08-28-2024 Office outpatient visit [...] Date Procedure Procedure Detail Performing Clinician Start: 11-09-2024 Urnls dip stick/tabl et rgnt non-auto w/o micrscp Zenon Antony DO Work Phone: Start: 11-02-2024 Urnls dip stick/tabl et rgnt non-auto w/o micrscp Jane LR Work Phone: Start: 10-24-2024 Urnls dip stick/tabl et rgnt non-auto w/o micrscp Jane LR Work Phone: Start: 10-24-2024 ALL MISCELLANEOUS TEST Jane LR Work Phone: Start: 10-13-2024 US OB BPP W NON-STRESS Zenon Antony DO [...] Author Start: 09-03-2025 Tobacco Screening Tobacco Screening [facility] Start: 12-07-2024 End: 12-07-2024 ambulatory 12/07/2024 9:20 AM EDT Visit [facility] [address] [place] [phone] Zenon Hardy, DO [address] [place] [address] [facility] Start: 11-16-2024 End: 11-16-2024 Patient encounter procedure 11/16/2024 11:30 AM EDT Routine [facility] [address] [place] [address] Jane Stewart, PA [address] [place] [address] [facility] Start: 11-15-2024 End: 11-15-2024 Patient encounter procedure 11/15/2024 1:00 PM EDT Routine [facility] [address] [place] [address] Jane Stewart, PA [address] [place] [address] [facility] Start: 11-09-2024 End: 11-09-2024 Patient encounter procedure 11/09/2024 10:50 AM EST Routine [facility] [address] [place] [phone] Zenon Hardy, DO [address] [place] [address] [facility] Start: 11-03-2024 End: 10-06-2025 US MFM with or without consult US MFM with or without consult Imaging Routine Poor growth affecting management of mother in third trimester, single or unspecified fetus Expected: 11/03/2024 (Approximate), Expires: 10/06/2025 [facility] Work Phone: Comment on above: Expected: 11/03/2024 (Approximate), Expires: 10/06/2025 Start: 11-02-2024 End: 11-02-2024 Patient encounter procedure [facility] Comment on above: Arrived Start: 10-26-2024 End: 10-26-2024 Patient encounter procedure 10/26/2024 10:20 AM EST Routine [facility] [address] [place] [phone] Zenon Hardy DO [address] [place], [place] [id number] [facility] Start: 10-24-2024 End: 10-24-2025 CULTURE, GROUP B STREP WITH SUSCEPTIBLITY CULTURE, GROUP B STREP WITH SUSCEPTIBLITY Lab Routine Third trimester Expected: 10/24/2024, Expires: 10/24/2025 [facility] Work Phone: Comment on above: Expected: 10/24/2024 , Expires: 10/24/2025 Start: 10-19-2024 End: 10-19-2024 Patient encounter procedure 10/19/2024 1:30 PM EST Routine [facility] [address] [place] [phone] Jane Stewart PA [address] [place] [address] [facility] Start: 10-12-2024 End: 10-12-2024 Patient encounter procedure 10/12/2024 1:00 PM EST Appointment Maternal Medicine [facility] [address] [place] [address] [facility] [place] Start: 10-04-2024 End: 10-04-2024 Patient encounter procedure 10/04/2024 11:30 AM EST Routine [facility] [address] [place] [phone] Zenon Hardy, DO [address] [place] [address] [facility] Start: 10-04-2024 End: 10-04-2024 Professional / ancillary services management 10/04/2024 11:00 AM EST Ancillary Procedure [facility] [address] [place] [phone] [facility] Start: 09-18-2024 End: 09-18-2025 [...] EST Routine [facility] [address] [place] [phone] Jane Stewart PA [address] [place], [place] [phone] Arrived [facility] Comment on above: Arrived Start: 07-18-2024 End: 07-18-2024 Patient encounter procedure 07/18/2024 10:10 AM EST Routine [facility] [address] [place] [phone] Zenon Hardy DO [address] [place], [place] [id number] [facility] Start: 07-04-2024 End: 07-04-2024 Professional / ancillary services management 07/04/2024 2:00 PM EDT Ancillary Procedure [facility] [address] [place] [address] [facility] Start: 06-20-2024 End: 06-20-2025 US for US OB ANATOMY SINGLE W US OB CERVICAL LENGTH Imaging Routine Screening, , for anatomic survey Expected: 06/20/2024 (Approximate), Expires: 06/20/2025 [facility] Work Phone: Comment on above: Expected: 06/20/2024 (Approximate), Expires: 06/20/2025 Start: 06-20-2024 End: 06-20-2024 Patient encounter procedure [facility] Comment on above: Arrived Start: 06-15-2024 End: 06-15-2025 ABO/Rh ABO/Rh Lab Routine Missed menses , unspecified gestational age Expected: 06/15/2024 (Approximate), Expires: 06/15/2025 [facility] Comment on above: Expected: 06/15/2024 (Approximate), Expires: 06/15/2025 Start: 06-15-2024 End: 06-15-2025 Alpha fetoprotein, maternal Alpha fetoprotein, maternal Lab Routine Second trimester Expected: 06/15/2024 (Approximate), Expires: 06/15/2025 [facility] Comment on above: Expected: 06/15/2024 (Approximate), Expires: 06/15/2025 Start: 06-15-2024 End: 06-15-2025 Blood type and Indirect antibody screen panel - Blood Type and screen Lab Routine Missed menses , unspecified gestational age Expected: 06/15/2024 (Approximate), Expires: 06/15/2025 [facility] Work Phone: Comment on above: Expected: 06/15/2024 (Approximate), Expires: 06/15/2025 Start: 06-15-2024 End: 06-15-2025 Drugs of abuse panel - Urine by Screen method Rapid drug screen, urine Lab Routine , unspecified gestational age Encounter for supervision of normal first in first trimester Expected: 06/15/2024 (Approximate), Expires: 06/15/2025 [facility] Comment on above: Expected: 06/15/2024 (Approximate), Expires: 06/15/2025 Start: 06-15-2024 End: 06-15-2025 US for US OB > 14 WEEKS Imaging Routine Missed menses Expected: 06/15/2024 (Approximate), Expires: 06/15/2025 [facility] Comment on above: Expected: 06/15/2024 (Approximate), Expires: 06/15/2025 Start: 05-07-2024 Influenza vaccination [facility] Start: 06-08-2022 DTaP,Tdap and Td Vaccines (2 - Td or Tdap) DTaP,Tdap and Td Vaccines (2 - Td or Tdap) [facility] Start: 02-01-2020 Screening for malign ant neoplasm of cervix Pap Smear [facility] Start: 2017 Adult BMI Screening Adult BMI Screen ing [facility] Start: 2011 Depression Screening Depression Scre ening [facility] Start: 1999 Tobacco Counseling Tobacco Counselin g [facility] Bacteria identified in Urine by Culture Urine culture Microbiology Routine Missed menses Ordered: 06/15/2024 [facility] Comment on above: Ordered: 06/15/2024 Bacteria identified in Urine by Culture Urine culture Microbiology Routine Urinary tract infection without hematuria, site unspecified Ordered: 11/09/2024 [facility] Work Phone: Comment on above: Ordered: 11/09/2024 CBC W Auto Different ial panel - Blood CBC and differential Lab Routine Missed menses , unspecified gestational age Ordered: 06/15/2024 [facility] Comment on above: Ordered: 06/15/2024 CHLAMYDIA TRACHOMATI S (GENITO/STI) CHLAMYDIA TRACHOMATIS (GENITO/STI) Lab Routine Second trimester 22 weeks gestation of Ordered: 07/27/2024 [facility] Comment on above: Ordered: 07/27/2024 Cytology Cervical or vaginal smear or scraping study Pap Smear Pathology and Cytology Routine Second trimester 22 weeks gestation of Ordered: 07/27/2024 [facility] Work Phone: Comment on above: Ordered: 07/27/2024 Hemoglobin A1c/Hemoglobin.total in Blood Hemoglobin A1c Lab Routine Missed menses , unspecified gestational age Ordered: 06/15/2024 [facility] Comment on above: Ordered: 06/15/2024 Hepatitis B virus surface Ag [Presence] in Serum or Plasma by Immunoassay Hepatitis B surface antigen Lab Routine Missed menses , unspecified gestational age Ordered: 06/15/2024 [facility] Comment on above: Ordered: 06/15/2024 Hepatitis C virus Ab [Presence] in Serum or Plasma by Immunoassay Hepatitis C antibody Lab Routine Missed menses , unspecified gestational age Ordered: 06/15/2024 [facility] Comment on above: Ordered: 06/15/2024 HIV-1/HIV-2 antigen/antibody combination immunoassay HIV-1 and HIV-2 antibodies Lab Routine Missed menses , unspecified gestational age Ordered: 06/15/2024 [facility] Comment on above: Ordered: 06/15/2024 Neisseria gonorrhoea e DNA [Presence] in Unspecified specimen by SEAN with probe detection Neisseria gonorrhea DNA probe, direct Lab Routine Second trimester 22 weeks gestation of Ordered: 07/27/2024 [facility] Comment on above: Ordered: 07/27/2024 Reagin Ab [Presence] in Serum by RPR RPR Lab Routine Missed menses , unspecified gestational age Ordered: 06/15/2024 [facility] Comment on above: Ordered: 06/15/2024 Rubella antibody, IgG Rubella an tibody, IgG Lab Routine Missed menses , unspecified gestational age Ordered: 06/15/2024 [facility] Comment on above: Ordered: 06/15/2024 SURESWAB(R) ADVANCED VAGINITIS PLUS, TMA SURESWAB(R) ADVANCED VAGINITIS PLUS, TMA Pathology and Cytology Routine Second trimester 22 weeks gestation of Ordered: 07/27/2024 [facility] Comment on above: Ordered: 07/27/2024 Payers Date Payer Category Payer Medicaid [id number] 2022 Medicaid [id number] 1999 Unknown [id number] 2.16.84 [id number] 1999 Unknown [id number] 2.16. [id number] 1999 Unknown [id number] 2.16.84 [id number] 1999 Unknown [id number] 2.16.84 [id number] 1999 Unknown [id number] 2.16.84 [id number] 1999 Unknown [id number] 2.16.84 [id number] 1999 Unknown [id number] 2.16.84 [id number] 1999 Unknown [id number] 2.16.84 [id number] 1999 Unknown [id number] 2.16.84 [id number] 1999 Unknown [id number] 2.16.84 [id number] 1999 Unknown [id number] 2.16.84 [id number] 1959 Unknown [id number] Social History Date Type Detail Facility Tobacco smoking stat [facility] Tobacco smoking consumption unknown [facility] Start: 02-23-2024 [facility] Start: [facility] Start: 06-08-2024 Gender identity Identifies as female gender (finding) [facility] Start: 10-17-2020 End: 09-03-2024 Sexual orientation Not on file [facility] Start: 09-26-2008 Tobacco smoking stat [facility] Smokes tobacco daily [facility] Start: 09-26-2008 End: 05-07-2018 History of tobacco use Cigarette Smoker [facility] Start: 11-13-2018 End: 10-17-2020 Cigarettes smoked current (pack per day) - Reported 1 [facility] Start: 11-13-2018 Tobacco use and exposure Smokeless tobacco non-user [facility] Start: 09-03-2024 Alcoholic beverage intake Current non-drinker of alcohol (finding) [facility] Are you worried or concerned that in the next two months you may not have stable housing that you own, rent or stay in as a part of a household? No [facility] Start: 1999 Sex assigned at Not on file [facility] Start: 04-11-2015 Sex Female (finding) [facility] Clinical Notes 06-15-2024 to 11-09-2024 Consuelo Hernandez LPN - 11/09/2024 10:50 AM ADELINE Haider - 11/02/2024 10:30 AM ADELINE Haider - 10/24/2024 11:10 AM Jarod Choi LPN - 10/04/2024 11:30 AM EST Note Date & Type Note Facility 11-09-2024 History of Presen t illness Narrative Reason [...] nursing note reviewed. Exam conducted with a barrel drainer present. Vitals: There is no height or weight on file to calculate BMI. BP: 120/70 Patient's last menstrual period was 02/17/2024. ASSESSMENT & PLAN ICD-10-CM 1. 39 weeks gestation of Z3A.39 POCT urinalysis dipstick manually resulted 2. Third trimester Z34.93 POCT urinalysis dipstick manually resulted 3. Urinary tract infection without hematuria, site unspecified N39.0 Urine culture Patient presents today for a routine obstetrics appointment. Patient is currently 39w0d with a Estimated Date of Delivery: 11/16/24. Patient to have IOL on 11/17/24 @0500. Patient signed consent and will be sent to [facility]. Patient to return to clinic for post appointment. Nursing called and spoke to Elo at [facility] and patient is placed on the books for IOL on 11/17/24. Patient will sign IOL packet at next appointment on 11/15/24. Documented by Consuelo Hernandez LPN on behalf of: Zenon Antony, DO documented in this encounter [facility] 11-02-2024 History of Presen t illness Narrative Reason [...] nursing note reviewed. Exam conducted with a barrel drainer present. Vitals: There is no height or weight on file to calculate BMI. BP: 110/70 Patient's last menstrual period was 02/17/2024. ASSESSMENT & PLAN ICD-10-CM 1. 38 weeks gestation of Z3A.38 POCT urinalysis dipstick manually resulted 2. Third trimester Z34.93 POCT urinalysis dipstick manually resulted Return OB: Patient presents today for a routine obstetrics appointment. Patient is currently 38w0d . Patient states she is doing well but has complaints of being tired due to current . Patient has verbalizes frequent movement. labor precautions was discussed/given and patient was instructed to perform kick counts three times a day. Orders Placed This Encounter Procedures POCT urinalysis dipstick manually resulted Follow Up: Patient is to return to office in 1 week for routine OB appointment. Documented by Mariluz Do LPN on behalf of: ADELINE Ward documented in this encounter [facility] 10-24-2024 History of Presen t illness Narrative Reason [...] nursing note reviewed. Exam conducted with a barrel drainer present. Vitals: There is no height or weight on file to calculate BMI. BP: 120/70 Patient's last menstrual period was 02/17/2024. ASSESSMENT & PLAN ICD-10-CM 1. Third trimester Z34.93 POCT urinalysis dipstick manually resulted CULTURE, GROUP B STREP WITH SUSCEPTIBLITY CULTURE, GROUP B STREP WITH SUSCEPTIBLITY 2. 36 weeks gestation of Z3A.36 Patient is doing well but has complaints of being tired and having maternal discomfort due to . Patient verbalized frequent movement and was instructed to perform kick counts three times per day. labor precautions were given, LARC consent was signed/declined, and GBS was obtained. Cervical check was performed and patient is 0cm dilated. Patient would like to discuss Sterilization. Orders Placed This Encounter Procedures CULTURE, GROUP B STREP WITH SUSCEPTIBLITY POCT urinalysis dipstick manually resulted Follow Up: Patient is to return to office in 1 week for routine OB appointment Patient desires tubal and will schedule at next appointment Documented by Mariluz Do LPN on behalf of: ADELINE Ward documented in this encounter [facility] 10-04-2024 History of Presen t illness Narrative [...] nursing note reviewed. Exam conducted with a barrel drainer present. Vitals: There is no height or [...] DO documented in this encounter [facility] 09-18-2024 History of Presen t illness Narrative [...] of: ADELINE Ward documented in this encounter [facility] 08-28-2024 History of Presen t illness [...] nursing note reviewed. Exam conducted with a barrel drainer present. Vitals: There is no height or [...] Zenon Hardy DO documented in this encounter [facility] 07-27-2024 History of Presen t illness [...] obtained without difficulty and patient was given msAFP order to have obtained. Orders Placed This [...] nursing note reviewed. Exam conducted with a barrel drainer present. Vitals: There is no height or [...] obtained without difficulty and patient was given [facility] order to have obtained. Follow Up: Patient is to return to our office in 4 weeks for routine OB appointment Documented by Consuelo Hernandez LPN on behalf of: ADELINE Ward documented in this encounter [facility] 06-20-2024 History of Presen t illness Narrative Reason for Appointment: Patient ID: [id number] Lay is a 24 y.o. female who [...] nursing note reviewed. Exam conducted with a barrel drainer present. Vitals: There is no height or [...] Jane Stewart PA-C documented in this encounter [facility] 06-15-2024 History of Presen t illness [...] or undercooked meat, and stay away from [facility]. Patient has also been advised to [...] by: Nahed Louie documented in this encounter [facility] Evaluation note Diagnosis Missed menses [...] unspecified fetus- Primary [facility] Third trimester state, incidental 36 weeks gestation of documented [facility] Diagnosis 38 weeks gestation of Third trimester state, incidental documented in this encounter [facility]* Diagnosis 39 weeks gestation of Third trimester state, incidental Urinary tract infection without hematuria, site unspecified documented in this encounter [facility] HealthcareInstructionsNot on filedocumented in this encounterProMediUniversity [facility] Summary Purpose Family History No Family History Records FoundNo Family History Records FoundNo Family History Records FoundNo Family History Records Found Advance Directives Date Activated Date Inactivated Comments 05/27/2018 6:21 PM 05/27/2018 8:31 PM Additional Source Comments INFORMATION SOURCE (unrecogn ized section and content) DATE CREATED AUTHOR 04/09/2020 [facility] DATE CREATED AUTHOR AUTHOR'S ORGANIZ ATION 09/04/2024 [facility] DATE CREATED AUTHOR AUTHOR'S ORGANIZ ATION 10/14/2024 [facility] DATE CREATED AUTHOR AUTHOR'S ORGANIZ ATION 11/04/2024 [facility] EPIC Reason for Visit (unrecogniz ed section and content) Reason Comments Initial Visit Reason Comments Routine Visit Care Teams (unrecognized sec tion and content) Licensed Weigher Relationship Specialty Start Date End Date Swapna Omalley NP [address] [facility] [place] [address] PCP - [facility] 12/06/23 Licensed Weigher Relationship Specialty Start Date End Date Swapna Omalley NP [address] [place] [address] PCP - [facility] 12/06/23 Licensed Weigher Relationship Specialty Start Date End Date Swapna Omalley NP [address] [facility] [place] [address] PCP - [facility] 12/06/23 Licensed Weigher Relationship Specialty Start Date End Date Swapna Omalley NP [address] [place] [address] PCP - [facility] 12/06/23 Licensed Weigher Relationship Specialty Start Date End Date Swapna Omalley NP [address] [place] [address] PCP - [facility] 12/06/23 Licensed Weigher Relationship Specialty Start Date End Date Swapna Omalley NP [address] [place] [address] PCP - [facility] 12/06/23 Licensed Weigher Relationship Specialty Start Date End Date [facility] [address] [place] PCP - General Family Medicine 11/13/18 Licensed Weigher Relationship Specialty Start Date End Date Swapna Omalley NP [address] [facility] [place] [address] PCP - [facility] 12/06/23 Licensed Weigher Relationship Specialty Start Date End Date Swapna Omalley NP [address] [facility] [place] [address] PCP - [facility] 12/06/23 Licensed Weigher Relationship Specialty Start Date End Date Swapna Omalley NP [address] [facility] [place] [address] PCP - [facility] 12/06/23 Licensed Weigher Relationship Specialty Start Date End Date Swapna Omalley NP [address] [facility] [place] [address] PCP - BERTHA Perez [facility] 12/06/23 FOR RECORDS PERTAINING TO PATIENTS WHO [...] BE BASED ON THE PRIMARY CLINICAL RECORDS. [facility] [employer] [facility]. provides no warranty or guarantee of the accuracy or completeness of information in this document.
[2024-11-10] MEDS: OXYTOCIN/0.9 % SODIUM CHLORIDE 20 UNITS/1,000 ML PLAST..BAG 125 UNIT IV (10:25)
--- NOTE | 2024-11-10 10:25 | PC.NURSE ---
1025 Physician returns to room to assess patient, notified of moderate lochia with small clots. Physician performs vaginal exam and expresses clots manually. fundus remains firm and one below umbilicus. pericare provided
--- NOTE | 2024-11-10 10:33 | PM.OBPRCVD ---
Procedure Intrapartal events: None Induction method: none Delivery monitor: none Route of delivery: Episiotomy Description: none L&D Laceration Description: none Estimated blood loss (mL): 200 Disposition: floor Infant Delivery date: 11/10/24 Gender: female presentation: vertex Placental delivery description: Spontaneous cord description: 3 Vessels
[2024-11-10 10:57] LABS: Hematocrit 40.7 % (36.0-48.0); Hemoglobin 13.5 g/dL (12.0-16.0); Mean Corpuscular HGB Conc 33.2 g/dL (29.9-35.2); Mean Corpuscular Hemoglobin 29.8 pg (26.7-34.0); Mean Corpuscular Volume 89.8 fL (81.0-99.0); Mean Platelet Volume 12.9 fL (9.5-13.5); Platelet Count 97 10^3/uL (150-450); Red Blood Count 4.53 10^6/uL (4.20-5.40); Red Cell Distribution Width 12.3 % (11.0-15.0); White Blood Count 6.7 10^3/uL (4.0-11.0)
[2024-11-10] MEDS: IBUPROFEN 600 MG TABLET PO ×3 (11:11→23:40)
[2024-11-10] MEDS: GLYCERIN/WITCH HAZEL PADS 1 PAD TOPICAL (11:11)
[2024-11-10] MEDS: ACETAMINOPHEN 325 MG TABLET 650 MG PO (12:22)
[2024-11-10] MEDS: BENZOCAINE/MENTHOL 85 GRAM SPRAY BOTTLE 1 APPLIC TOPICAL (12:22)
--- NOTE | 2024-11-10 19:35 | PC.NURSE ---
0950 viable girl per this RN in bathroom of triage room. placed skin to skin with mom. minimal blood loss noted at delivery, fluid clear at delivery. 0953 physician in room, umbilical cord clamped and cut, patient ambulates to bed for placenta delivery 0955 Placenta delivery without difficulty, baby remains skin to skin on mom's chest.
[2024-11-11 00:12] LABS: Amphetamine Screen Urine NEGATIVE (NEGATIVE); Barbiturates Screen Urine NEGATIVE (NEGATIVE); Benzodiazepines Screen Urine NEGATIVE (NEGATIVE); Buprenorphine Screen Urine NEGATIVE (NEGATIVE); Cannabinoid Screen Urine NEGATIVE (NEGATIVE); Cocaine Screen Urine NEGATIVE (NEGATIVE); Methadone Screen Urine NEGATIVE (NEGATIVE); Methamphetamines Screen Urine NEGATIVE (NEGATIVE); Opiate Screen Urine NEGATIVE (NEGATIVE); Oxycodone Screen Urine NEGATIVE (NEGATIVE); Phencyclidine Screen Urine NEGATIVE (NEGATIVE); Tricyclic Antidepressant Urine NEGATIVE (NEGATIVE)
[2024-11-11 07:19] LABS: Basophils Percent Auto 0.2 % (0.2-2.0); Eosinophils Absolute Auto 0.1 10^3/uL (0.0-0.7); Eosinophils Percent Auto 1.3 % (0.9-7.0); Hematocrit 30.9 % (36.0-48.0); Hemoglobin 10.3 g/dL (12.0-16.0); Immature Granulocytes Abs Auto 0.03 10^3/uL (0.00-0.03); Immature Granulocytes Pct Auto 0.6 % (0.0-0.5); Lymphocytes Absolute Auto 0.8 10^3/uL (1.2-3.8); Lymphocytes Percent Auto 14.3 % (20.5-60.0); Mean Corpuscular HGB Conc 33.3 g/dL (29.9-35.2); Mean Corpuscular Hemoglobin 30.3 pg (26.7-34.0); Mean Corpuscular Volume 90.9 fL (81.0-99.0); Monocytes Absolute Auto 0.5 10^3/uL (0.3-0.8); Monocytes Percent Auto 9.2 % (1.7-12.0); Neutrophils Absolute Auto 3.9 10^3/uL (1.4-6.5); Neutrophils Percent Auto 74.4 % (43.0-75.0); Platelet Count 95 10^3/uL (150-450); Red Cell Distribution Width 12.4 % (11.0-15.0); White Blood Count 5.3 10^3/uL (4.0-11.0)
--- NOTE | 2024-11-11 10:07 | P.DS_ITS ---
DS: Providers Provider Date of admission: 11/10/24 09:47 Primary care physician: Non-Staff Physician, Admitting clinician: Jacek Hardy Attending physician on discharge: Caroline Olson Anticipated date of discharge: 11/11/24 DS: Diagnosis Discharge Diagnosis (1) (spontaneous vaginal delivery): Assessment and plan: DESIRES DISCHARGE, BOTTLE FEEDING, VSS, CLINICAL EXAM NONFOCAL, VOICING NO COMPLAINTS Plan DISCHARGE HOME OB - DS: Summary Hospital Course Hospital Course: UNCOMPLICATED Time spent discussing smoking cessation with patient: 3 to 10 minutes Peripartum Data - Vaginal Delivery Laceration description: none Complications complications: none Infant Delivery method: spontaneous vaginal delivery Gender: female Discharge plan: home Status at Discharge Cognitive/behavioral status at discharge: WNL Functional status at discharge: independent ambulation Overall status at discharge: patient is back to baseline Time Spent with Patient Time attestation: Total time spent providing and/or coordinating discharge services: Time spent: less than 30 minutes Exam Narrative Exam Narrative: VOICING NO COMPLAINTS Constitutional Vital Signs, click to edit/add: Last Vital Signs Temp 98.2 F 11/10/24 23:30 Pulse 76 11/10/24 23:30 Resp 16 11/10/24 23:30 BP 83/49 L 11/10/24 23:30 O2 Del Method Room Air 11/10/24 23:30 Documenting provider has reviewed patient's vital signs: yes Common normals: no apparent distress, average body habitus, oriented x3, no limitations, healthy appearing, alert and well nourished [facility] Common normals: normocephalic and head/scalp atraumatic Eye Common normals: PERRL Pupil: accommodation reflex normal Neck & C-Spine Common normals: full ROM and supple Respiratory Common normals: normal respiratory effort Auscultation: clear to auscultation bilaterally Cardio Common normals: regular rate and regular rhythm GI Common normals: Normal to inspection, nondistended, normoactive bowel sounds present, soft to palpation and non-tender Common normals: no CVA tenderness Back & Pelvis Common normals: no thoracic nor lumbar tenderness Extremity Common normals: normal to inspection, full ROM and no calf tenderness Neuro Common normals: oriented x3, CN's II-XII intact bilaterally, moves all extremities, no focal motor deficits and no sensory deficits noted Motor exam: strength 5/5 throughout Psych Common normals: mental status grossly normal, thought process normal, cooperative, affect normal, speech normal and activity/motor behavior normal DS: Data Data Completed and Pending Labs on day of discharge: Labs from last 24 hours 11/11/24 11/10/24 11/10/24 07:04 23:45 10:10 WBC 5.3 6.7 RBC 3.40 L 4.53 Hgb 10.3 L 13.5 Hct 30.9 L 40.7 MCV 90.9 89.8 MCH 30.3 29.8 MCHC 33.3 33.2 RDW 12.4 12.3 Plt Count 95 L 97 L MPV 12.0 12.9 Neut % (Auto) 74.4 Lymph % (Auto) 14.3 L [place] % (Auto) 9.2 Eos % (Auto) 1.3 Baso % (Auto) 0.2 Neut # (Auto) 3.9 Lymph # (Auto) 0.8 L [place] # (Auto) 0.5 Eos # (Auto) 0.1 Baso # (Auto) 0.0 Abs Immat Gran (auto) 0.03 Imm/Tot Granulo (auto) 0.6 H Urine Opiates Screen Negative Ur Buprenorphine Scrn Negative Ur Oxycodone Screen Negative Urine Methadone Screen Negative Ur Barbiturates Screen Negative U Tricyclic Antidepress Negative Ur Phencyclidine Scrn Negative Ur Amphetamines Screen Negative U Methamphetamines Scrn Negative U Benzodiazepines Scrn Negative Urine Cocaine Screen Negative U Cannabinoids Screen Negative Blood Type O Positive Antibody Screen Negative Discharge Plan Discharge Disposition: Home, Self-Care Condition: Good Assessment: EXAM NON FOCAL, AFEBRILE, VSS, HEMOGLOBIN 10 Health Concerns: NONE Plan of Treatment: DISCHARGE HOME Discharge Medications: Discontinued ondansetron 4 mg tablet,disintegrating 4 mg PO Q6H PRN (Reason: nausea and vomiting) Activity: increase activity as tolerated Activity Detail: NO SEX SIX WEEKS, WALKING ONLY EXERCISE SIX WEEKS, LIMIT CAR TRANSPORTATION FOR 4 WEEKS, FOLLOWUP EXAM IN 6 WEEKS, SPORTS BRA 29/03 TO INIHIBIT [employer] Diet: regular diet Print Language: Gambian Patient Instructions: Vaginal Delivery (DC) Forms: Portal Instructions Follow Up Appointments: MAKE POST PARTUME EXAM APPOINTMENT FOR SIX WEEKS Discharge location: HOME
[2024-11-11 10:20] VITALS: BP 97/57; PULSE 82; TEMP 35.9; TEMP 36.6
[2024-11-11] MEDS: DOCUSATE SODIUM 100 MG CAPSULE PO (10:39)
== END 2024-11-11 16:15 | disposition home or self-care (01) | DRG 560 ==
PROVIDERS: Admitting Provider Obstetrics & Gynecology; Visit Provider Obstetrics & Gynecology
DX: O80 Encounter for full-term uncomplicated delivery (principal); Z3A.39 39 weeks gestation of pregnancy; Z37.0 Single live birth; Z87.440 Personal history of urinary (tract) infections
CPT/HCPCS: 36415; 59410; 80307; 85025; 85027; 86850; 86900; 86901